=== PATIENT | female | born 1990 | race Caucasian/White ===

== ENCOUNTER 2017-02-19 01:10 | Emergency (ER) | payer OTHER, SELFPAY ==
--- NOTE | 2017-02-19 01:31 | ERPHSYRPT ---
- History of Present Illness Time Seen by Provider: 02/19/17 01:17 Historian: patient Exam Limitations: no limitations Patient Subjective Stated Complaint: ABD PAIN THAT STARTED EARLIER IN THE NIGHT WORSE FOR THE LAST APPROX 30 MIN. PT STS THAT PAIN IS CENTRAL/ LEFT SIDED LOWER ABD AND SUPRAPUBIC RADIATING INTO GROIN. RATES PAIN 10/10. DESCRIBES CONSTANT STABBING PAIN. PT STS NAUSEA, DENIES VOMITING. LAST BM JUST PLANNING RN - WAS NORMAL FOR HER. DENIES COMPLAINTS Triage Nursing Assessment: PT ALERT, ORIENTED, AMBULATORY TO TX ROOM, STEADY GAIT NOTED. SKIN P/W/D, RESPS NON-LABORED. PT HOLDING ABD. PT PROVIDED URINE SPECIMEN AT TRIAGE. Physician History: FOR THE PAST 17 HOURS PT HAS HAD CONSTANT STABBING LLQ ABDOMINAL PAIN WORSE IN THE PAST 30 MINUTES RADIATING INTO THE LEFT GROIN AND SUPRAPUBIC AREA WITH NAUSEA. LAST BM WAS TONIGHT & WNL. PT DENIES CHEST PAIN, SHORTNESS OF AIR, FEVER, BACK PAIN. LMP=02/03/17. Allergies/Adverse Reactions: meloxicam Allergy (Verified 02/19/17 01:21) sulfamethoxazole [From Bactrim] Allergy (Verified 02/19/17 01:21) Home Medications: Albuterol Sulfate [Proair Hfa] 2 puff IH DAILY PRN PRN 11/11/15 [History] Alprazolam [Xanax 0.5 mg] 0.5 mg PO TID PRN 08/10/16 [History] Sertraline HCl 50 mg [Zoloft 50 mg Tablet] 25 mg PO DAILY 08/10/16 [History] Ibuprofen 600 mg PO TID PRN 10/19/16 [History] Hx Tetanus, Diphtheria Vaccination/Date Given: No Hx Influenza Vaccination/Date Given: No Hx Pneumococcal Vaccination/Date Given: No Immunizations Up to Date: No - Review of Systems Constitutional: No Fever Respiratory: No Dyspnea Cardiac: No Chest Pain Abdominal/Gastrointestinal: Abdominal Pain, Nausea, No Vomiting, No Diarrhea Musculoskeletal: No Back Pain All Other Systems: Reviewed and Negative - Past Medical History Pertinent Past Medical History: Yes Neurological History: No Pertinent History ENT History: No Pertinent History Cardiac History: No Pertinent History Respiratory History: Asthma Endocrine Medical History: No Pertinent History Musculoskeletal History: Degenerative Disk Disease GI Medical History: No Pertinent History History: No Pertinent History Psycho-Social History: Anxiety, Depression Female Reproductive Disorders: No Pertinent History - Past Surgical History Past Surgical History: Yes Neuro Surgical History: No Pertinent History Cardiac: No Pertinent History Respiratory: No Pertinent History Gastrointestinal: Cholecystectomy Genitourinary: No Pertinent History Musculoskeletal: No Pertinent History Female Surgical History: Section Other Surgical History: CS x3 - Social History Smoking Status: Current every day smoker How long have you smoked: 10 Exposure to second hand smoke: No Drug Use: none Patient Lives Alone: No Significant Family History: no pertinent family hx - Female History Hx Last Menstrual Period: BEGINNING OF THE MONTH Hx Now: No - Nursing Vital Signs Nursing Vital Signs: Initial Vital Signs Temperature 98.2 F Temperature Source Oral Pulse Rate 77 Respiratory Rate 16 Blood Pressure [] 110/56 Pain Intensity 10 - Physical Exam General Appearance: alert Eye Exam: PERRL/EOMI Ears, Nose, Throat Exam: TMs normal, pharynx normal, moist mucous membranes Neck Exam: normal inspection Respiratory Exam: lungs clear Cardiovascular Exam: normal heart sounds Gastrointestinal/Abdomen Exam: soft, normal bowel sounds, tenderness (MILD LLQ/ SUPRAPUBIC TENDERNESS), No guarding Back Exam: normal range of motion Extremity Exam: normal inspection, No pedal edema Neurologic Exam: alert, cooperative Skin Exam: warm, dry SpO2 Interpretation: normal SpO2: 100 Oxygen Delivery: Room Air - Course Nursing assessment & vital signs reviewed: Yes - CT Exams Abdomen/Pelvis CT Interpretation: Tele-radiologist Report (4 X 5.5 CM CYST OF THE LEFT ADNEXA.) - Radiology Ultrasound Exam Pelvis Ultrasound: Other (TECH REPORT: LEFT OVARIAN CYST 4.7 CM X 3.3 CM X 3.8 CM; NO OVARIAN TORSION.) Ordered Tests: Active Orders 24 hr Category Date Time Status ABDOMEN AND PELVIS W/0 CONTRAS [CT] Stat Exams 02/19/17 01:57 Taken PELVIC [US] Stat Exams 02/19/17 03:22 Taken AMYLASE Stat Lab 02/19/17 02:08 Completed CBC W DIFF Stat Lab 02/19/17 02:08 Completed CMP Stat Lab 02/19/17 02:08 Completed HCG QUALITATIVE,SERUM Stat Lab 02/19/17 02:08 Completed LIPASE Stat Lab 02/19/17 02:08 Completed UA W/ MICROSCOPIC Stat Lab 02/19/17 01:30 Completed Medication Summary Discontinued Medications Generic Name Dose Route Start Last Admin Trade Name Glo PRN Reason Stop Dose Admin Hydromorphone HCl 1 mg 02/19/17 03:25 02/19/17 03:47 Hydromorphone 1 Mg/Ml Ampule IM 02/19/17 03:26 1 mg STAT ONE Administration Hydromorphone HCl Confirm 02/19/17 03:45 Hydromorphone 1 Mg/Ml Ampule Administered 02/19/17 03:46 Dose 1 mg .ROUTE .STK-MED ONE Promethazine HCl 25 mg 02/19/17 03:25 02/19/17 03:47 Phenergan 25 Mg Inj IM 02/19/17 03:26 25 mg STAT ONE Administration Promethazine HCl Confirm 02/19/17 03:45 Phenergan 25 Mg Inj Administered 02/19/17 03:46 Dose 25 mg .ROUTE .STK-MED ONE Lab/Rad Data: Laboratory Result Diagrams 02/19/17 02:08 02/19/17 02:08 Laboratory Results 02/19/17 02/19/17 02/19/17 Range/Units 02:08 02:08 02:08 WBC 11.7 H (4.0-10.5) K/mm3 RBC 3.70 L (4.1-5.4) M/mm3 Hgb 11.7 L (12.0-16.0) gm/dl Hct 34.3 L (35-47) % MCV 92.7 (78-100) fl MCH 31.6 (26-32) pg MCHC 34.1 (32-36) g/dl RDW 12.2 (11.5-14.0) % Plt Count 205 (150-450) K/mm3 MPV 10.8 H (6-9.5) fl Gran % 64.8 (36.0-66.0) % Lymphocytes % 21.4 L (24.0-44.0) % Monocytes % 7.8 (0.0-12.0) % Eosinophils % 5.7 H (0.00-5.0) % Basophils % 0.3 (0.0-0.4) % Basophils # 0.03 (0-0.4) Sodium 141 (136-145) mEq/L Potassium 3.7 (3.5-5.1) mEq/L Chloride 105 (98-107) mEq/L Carbon Dioxide 24.6 (21-32) mEq/L Anion Gap 14.9 (5-15) MEQ/L BUN 14 (9-20) mg/dL Creatinine 0.85 (0.55-1.30) mg/dl Estimated GFR > 60 ML/MIN Glucose 96 (70-110) MG/DL Calcium 8.4 L (8.5-10.1) mg/dL Total Bilirubin 0.2 (0.2-1.0) mg/dL AST 13 L (15-37) U/L ALT 17 (12-78) U/L Alkaline Phosphatase 70 (46-116) U/L Serum Total Protein 6.9 (6.4-8.2) gm/dL Albumin 3.3 L (3.4-5.0) g/dL Amylase 37 (25-115) U/L Lipase 103 (73-393) U/L Serum , Qual NEGATIVE (Negative) Ur Collection Type Urine Color (YELLOW) Urine Appearance (CLEAR) Urine pH (5-6) Ur Specific [place] (1.005-1.025) Urine Protein (Negative) Urine Glucose (UA) (NEGATIVE) mg/dL Urine Ketones (NEGATIVE) Urine Nitrite (NEGATIVE) Urine Bilirubin (NEGATIVE) Urine Urobilinogen (0-1) mg/dL Urine WBC (Auto) (NEGATIVE) Urine RBC (Auto) (0-5) Charles/ul Urine Microscopic RBC (0-2) /HPF Ur Epithelial Cells (FEW) /HPF Urine Bacteria (NEGATIVE) /HPF Specimen Received 02/19/17 Range/Units 01:30 WBC (4.0-10.5) K/mm3 RBC (4.1-5.4) M/mm3 Hgb (12.0-16.0) gm/dl Hct (35-47) % MCV (78-100) fl MCH (26-32) pg MCHC (32-36) g/dl RDW (11.5-14.0) % Plt Count (150-450) K/mm3 MPV (6-9.5) fl Gran % (36.0-66.0) % Lymphocytes % (24.0-44.0) % Monocytes % (0.0-12.0) % Eosinophils % (0.00-5.0) % Basophils % (0.0-0.4) % Basophils # (0-0.4) Sodium (136-145) mEq/L Potassium (3.5-5.1) mEq/L Chloride (98-107) mEq/L Carbon Dioxide (21-32) mEq/L Anion Gap (5-15) MEQ/L BUN (9-20) mg/dL Creatinine (0.55-1.30) mg/dl Estimated GFR ML/MIN Glucose (70-110) MG/DL Calcium (8.5-10.1) mg/dL Total Bilirubin (0.2-1.0) mg/dL AST (15-37) U/L ALT (12-78) U/L Alkaline Phosphatase (46-116) U/L Serum Total Protein (6.4-8.2) gm/dL Albumin (3.4-5.0) g/dL Amylase (25-115) U/L Lipase (73-393) U/L Serum , Qual (Negative) Ur Collection Type CLEAN CATCH Urine Color YELLOW (YELLOW) Urine Appearance CLEAR (CLEAR) Urine pH 5.5 (5-6) Ur Specific [place] 1.020 (1.005-1.025) Urine Protein NEGATIVE (Negative) Urine Glucose (UA) NEGATIVE (NEGATIVE) mg/dL Urine Ketones NEGATIVE (NEGATIVE) Urine Nitrite NEGATIVE (NEGATIVE) Urine Bilirubin NEGATIVE (NEGATIVE) Urine Urobilinogen 0.2 (0-1) mg/dL Urine WBC (Auto) NEGATIVE (NEGATIVE) Urine RBC (Auto) LARGE (0-5) Charles/ul Urine Microscopic RBC 15-25 (0-2) /HPF Ur Epithelial Cells MODERATE (FEW) /HPF Urine Bacteria FEW (NEGATIVE) /HPF Specimen Received 02/19/17:0130 - Departure Time of Disposition: 04:57 Departure Disposition: Home Clinical Impression: ABDOMINAL PAIN, LEFT OVARIAN CYST Condition: Fair Critical Care Time: No Referrals: AUDELIA MARCELO [Primary Care Provider] - Instructions: Ovarian Cyst Additional Instructions: FOLLOW UP WITH PRIVATE DOCTOR TOMORROW. Prescriptions: Promethazine HCl 25 mg [Phenergan 25 mg] 25 mg PO Q4H PRN PRN #14 tablet PRN Reason: Nausea/Vomiting
[2017-02-19 01:43] LABS: Bacteria FEW /HPF (NEGATIVE); COMPLETE URINE MICROSCOPIC? YES; Collection Type CLEAN CATCH; Epithelial Cells MODERATE /HPF (FEW); Ph 5.5 (5-6)
[2017-02-19 02:13] LABS: BASOPHIL % 0.3 % (0.0-0.4); Eosinophil % 5.7 % (0.00-5.0); Granulocytes % 64.8 % (36.0-66.0); Lymphocytes % 21.4 % (24.0-44.0); Mean Cell Volume 92.7 fl (78-100); Mean Corpuscular Hemoglobin 31.6 pg (26-32); Mean Platelet Volume 10.8 fl (6-9.5); Monocytes % 7.8 % (0.0-12.0); Platelet Count 205 K/mm3 (150-450); Red Cell Distribution Width 12.2 % (11.5-14.0); White Blood Count 11.7 K/mm3 (4.0-10.5)
[2017-02-19 02:36] LABS: ALBUMIN 3.3 g/dL (3.4-5.0); ALKALINE PHOSPHATASE 70 U/L (46-116); ANION GAP 14.9 MEQ/L (5-15); BILIRUBIN,TOTAL 0.2 mg/dL (0.2-1.0); BLOOD UREA NITROGEN 14 mg/dL (9-20); CHLORIDE 105 mEq/L (98-107); Carbon Dioxide 24.6 mEq/L (21-32); Glucose 96 MG/DL (70-110); LIPASE 103 U/L (73-393); Potassium 3.7 mEq/L (3.5-5.1); SGOT/AST 13 U/L (15-37); SGPT/ALT 17 U/L (12-78); SODIUM 141 mEq/L (136-145); Total Protein 6.9 gm/dL (6.4-8.2)
[2017-02-19 03:25] VITALS: O2SAT 100
[2017-02-19] MEDS ORDERED: Hydromorphone 1 mg/ml Ampule IM ONE (03:25)
[2017-02-19] MEDS ORDERED: Phenergan 25 MG INJ IM ONE (03:25)
[2017-02-19] MEDS ORDERED: Phenergan 25 MG INJ ONE (03:45)
[2017-02-19] MEDS ORDERED: Hydromorphone 1 mg/ml Ampule ONE (03:45)
[2017-02-19 05:08] VITALS: BP 104/70; PULSE 72
--- NOTE | 2017-02-19 17:19 | XRAY ---
Exam: CT of the abdomen and pelvis without IV contrast from 02/19/2017. CTDI: 23.68 Comparison: CT of the abdomen and pelvis with IV contrast from 08/10/2016. Indication: Left lower quadrant abdominal pain 7 hours, associated nausea, history of prior cholecystectomy and 3 prior sections. Technique: Non-IV contrast axial images were obtained through the abdomen and pelvis. Reconstructed coronal and sagittal images were created and reviewed. Findings: The posterior lung bases appear clear. Moderate food/secretions is seen within the stomach lumen. Surgical clips consistent with prior cholecystectomy are seen within the right upper quadrant. The liver, spleen, pancreas, and adrenal glands appear unremarkable. The kidneys are of average size and shape. There are some subtle small round high attenuation lesions within the upper to mid aspect of the left kidney, the largest measuring about 7.5 mm in diameter on axial image #25. These likely represent small hyperdense cysts. Further evaluation with a renal ultrasound may be helpful, although the patient's body habitus could limit evaluation in this regard. Comparison with the prior post IV contrast study from 08/10/2016 is somewhat difficult. No renal calcifications or hydronephrosis is seen. The abdominal aorta is of normal diameter. No abnormal retroperitoneal lymphadenopathy is seen. Abundant stool is seen within the cecum, ascending colon, transverse colon, and a portion of the descending colon. No abnormal bowel distention is seen. There is no free intraperitoneal air. The appendix is identified within the right lower quadrant and reveals no inflammatory findings to suggest appendicitis. There is a 5.7 cm by 4.1 cm heterogeneous left adnexal mass density measuring an average of +26.5 Hounsfield units. The previous study had revealed a 2 cm in diameter cyst at this level. I would recommend further evaluation with a transabdominal and transvaginal pelvic ultrasound. The uterus is anteflexed and appears unremarkable. The right ovary appears normal. No other pelvic mass, abnormal pelvic lymphadenopathy, or free intraperitoneal fluid is seen. The visualized bones reveal no acute fracture or aggressive bone lesion. A number of small Schmorl's nodes are seen within the central vertebral endplates of the lower thoracic and upper lumbar spine representing no change. Impression: 1. Axial image #67 reveals a 5.7 cm x 4.1 cm oval-shaped mass within the anterior aspect of the left pelvic adnexa. This represents a new developing mass within the left ovary. Further evaluation with a pelvic ultrasound is recommended as outlined above.. 2. The remainder of the pelvis appears unremarkable. 3. Several small hyperdense round nodular lesions are seen within the upper pole to mid pole of the left kidney which likely represent small hyperdense cysts. Consider further evaluation with a renal ultrasound. 4. No other acute process is seen within the abdomen or pelvis. 5. Normal appendix. 6. Status post cholecystectomy.
--- NOTE | 2017-02-19 21:17 | XRAY ---
Exam: Transvaginal pelvic ultrasound from 02/19/2017. Comparison: CT of the abdomen and pelvis without IV contrast from 02/19/2017. Indication: Left lower quadrant abdominal pain. Findings: An anteflexed uterus is seen measuring 7.7 cm in length, 4.1 cm in AP depth, and 5.2 cm in width. The uterine myometrium is homogeneous without evidence of masses. AP dimension of the endometrium measured 9 - 10 mm. One or 2 tiny nabothian cysts are seen within the cervical canal. The right ovary measured 3.1 cm x 2.2 cm x 2.4 cm. Normal color flow and Doppler signal is seen within the right ovary. The left ovary measures 4.8 cm x 4.9 cm x 4.55 cm and is remarkable for an oval-shaped complex heterogeneous mass with thickened septations measuring 4.7 cm x 3.3 cm x 3.8 cm. Normal color flow and Doppler signal is seen within the left ovary. The small amount of nonspecific free fluid is seen within the cul-de-sac. Impression: 1. Complex cystic mass with thickened septations is seen within the left ovary measuring 4.7 cm x 3.3 cm x 3.8 cm. Correlation with direct visualization may be helpful. A small amount of free fluid is seen within the cul-de-sac as well. 2. Normal anteflexed uterus. 3. Unremarkable right ovary.
== END 2017-02-19 05:12 | disposition home or self-care (01) ==
LOC: ED 01:10
DX: R10.32 Left lower quadrant pain (principal); N83.202 Unspecified ovarian cyst, left side; R11.0 Nausea
CPT/HCPCS: 36415; 74176; 76856; 80053; 81000; 82150; 83690; 84703; 85025; 96372; 99284; J1170; J2550

== ENCOUNTER 2017-03-09 02:48 | Emergency (ER) | payer OTHER, SELFPAY ==
--- NOTE | 2017-03-09 02:58 | ERPHSYRPT ---
- History of Present Illness Time Seen by Provider: 03/09/17 02:58 Historian: patient Exam Limitations: clinical condition Physician History: PATIENT WITH HISTORY OF LEFT OVARIAN CYST COMPLAINS OF LEFT LOWER ABDOMINAL PAIN X 2 DAYS. DENIES VAGINAL BLEEDING, FEVER OR URINARY SYMPTOMS. HAS NAUSEA ON OCCASION. Timing/Duration: yesterday Activities at Onset: none Quality: sharpness Abdominal Pain Onset Location: RLQ Pain Radiation: no radiation Severity of Pain-Max: moderate Severity of Pain-Current: moderate Modifying Factors: Improves With: movement Associated Symptoms: nausea Previous symptoms: same symptoms as today Allergies/Adverse Reactions: meloxicam Allergy (Verified 03/09/17 03:00) sulfamethoxazole [From Bactrim] Allergy (Verified 03/09/17 03:00) Home Medications: Albuterol Sulfate [Proair Hfa] 2 puff IH DAILY PRN PRN 11/11/15 [History] Alprazolam [Xanax 0.5 mg] 0.5 mg PO TID PRN 08/10/16 [History] Sertraline HCl 50 mg [Zoloft 50 mg Tablet] 100 mg PO DAILY 08/10/16 [History ] Ibuprofen 600 mg PO TID PRN 10/19/16 [History] Hx Tetanus, Diphtheria Vaccination/Date Given: No Hx Influenza Vaccination/Date Given: No Hx Pneumococcal Vaccination/Date Given: No - Review of Systems Constitutional: No Fever, No Chills Eyes: No Symptoms Ears, Nose, & Throat: No Symptoms Respiratory: No Symptoms, No Cough, No Dyspnea Cardiac: No Symptoms, No Chest Pain, No Edema, No Syncope Abdominal/Gastrointestinal: Abdominal Pain, No Nausea, No Vomiting, No Diarrhea Genitourinary Symptoms: No Dysuria Musculoskeletal: No Symptoms, No Back Pain, No Neck Pain Skin: No Symptoms, No Rash Neurological: No Dizziness, No Focal Weakness, No Sensory Changes Psychological: No Symptoms Endocrine: No Symptoms All Other Systems: Reviewed and Negative - Past Medical History Pertinent Past Medical History: Yes Neurological History: No Pertinent History ENT History: No Pertinent History Cardiac History: No Pertinent History Respiratory History: Asthma Endocrine Medical History: No Pertinent History Musculoskeletal History: Degenerative Disk Disease GI Medical History: No Pertinent History History: No Pertinent History Psycho-Social History: Anxiety, Depression Female Reproductive Disorders: No Pertinent History - Past Surgical History Past Surgical History: Yes Neuro Surgical History: No Pertinent History Cardiac: No Pertinent History Respiratory: No Pertinent History Gastrointestinal: Cholecystectomy Genitourinary: No Pertinent History Musculoskeletal: No Pertinent History Female Surgical History: Section Other Surgical History: CS x3 - Social History Smoking Status: Current every day smoker How long have you smoked: 10 Exposure to second hand smoke: No Drug Use: none Patient Lives Alone: No Significant Family History: no pertinent family hx - Female History Hx Now: No - Nursing Vital Signs Nursing Vital Signs: Initial Vital Signs Temperature 98.1 F Temperature Source Oral Pulse Rate 84 Respiratory Rate 18 Blood Pressure [] 118/59 Pain Intensity 0 - Physical Exam General Appearance: no apparent distress, alert Eye Exam: PERRL/EOMI, eyes nml inspection Ears, Nose, Throat Exam: normal ENT inspection, pharynx normal, moist mucous membranes Neck Exam: normal inspection, non-tender, supple, full range of motion Respiratory Exam: normal breath sounds, lungs clear, No respiratory distress Cardiovascular Exam: regular rate/rhythm, normal heart sounds Gastrointestinal/Abdomen Exam: soft, normal bowel sounds, tenderness (LEFT LOWER QUAD TENDERNESS, NO GUARDING OR REBOUND TENDERNESS), No mass Pelvic Exam: normal external exam, other (THERE IS NO BLOOD IN VAGINAL VAULT, LEFT ADNEXAL TENDERNESS) Back Exam: normal inspection, normal range of motion, No CVA tenderness, No vertebral tenderness Extremity Exam: normal inspection, normal range of motion, pelvis stable Neurologic Exam: alert, oriented x 3, cooperative, normal mood/affect, nml cerebellar function, sensation nml, No motor deficits Skin Exam: normal color, warm, dry SpO2 Interpretation: normal SpO2: 96 Oxygen Delivery: Room Air - Radiology Ultrasound Exam Other Ultrasound: discussed w/radiologist, Other (THE TRANSVAGINAL ULTRASOUND SHOWED NO EVIDENCE OF OVARIAN CYST OF FLUID IN THE CUL-DE-SAC) Ordered Tests: Active Orders 24 hr Category Date Time Status Oxygen-ED Only NASAL CANNULA 2 lpm Care 03/09/17 04:31 Active Pulse Oximetry (ED) STAT Care 03/09/17 04:31 Active PELVIS TRANS VAGINAL [US] Stat Exams 03/09/17 03:12 Taken CBC W DIFF Stat Lab 03/09/17 03:20 Completed HCG,QUALITATIVE URINE Stat Lab 03/09/17 03:15 Completed UA W/ MICROSCOPIC Stat Lab 03/09/17 03:15 Completed Urine Triage Profile Stat Lab 03/09/17 03:15 Completed Wet Prep Stat Lab 03/09/17 03:35 Completed Medication Summary Generic Name Dose Route Start Last Admin Trade Name Glo PRN Reason Stop Dose Admin Sodium Chloride 1,000 mls @ 200 mls/hr 03/09/17 03:15 03/09/17 03:51 Sodium Chloride 0.9% 1000 Ml IV 04/08/17 03:14 200 mls/hr .Q5H LIZZIE Administration Discontinued Medications Generic Name Dose Route Start Last Admin Trade Name Glo PRN Reason Stop Dose Admin Diphenhydramine HCl 25 mg 03/09/17 03:12 03/09/17 03:50 Benadryl 50 Mg/Ml IV 03/09/17 03:13 25 mg STAT ONE Administration Diphenhydramine HCl Confirm 03/09/17 03:38 Benadryl 50 Mg/Ml Administered 03/09/17 03:39 Dose 50 mg .ROUTE .STK-MED ONE Hydromorphone HCl 1 mg 03/09/17 03:12 03/09/17 03:50 Hydromorphone 1 Mg/Ml Ampule IV 03/09/17 03:13 1 mg STAT ONE Administration Hydromorphone HCl Confirm 03/09/17 03:38 Hydromorphone 1 Mg/Ml Ampule Administered 03/09/17 03:39 Dose 1 mg .ROUTE .STK-MED ONE Ondansetron HCl 4 mg 03/09/17 03:12 03/09/17 03:50 Zofran 4 Mg/2 Ml Vial IV 03/09/17 03:13 4 mg STAT ONE Administration Ondansetron HCl Confirm 03/09/17 03:38 Zofran 4 Mg/2 Ml Vial Administered 03/09/17 03:39 Dose 4 mg .ROUTE .STK-MED ONE Lab/Rad Data: Laboratory Result Diagrams 03/09/17 03:20 Laboratory Results 03/09/17 03/09/17 03/09/17 Range/Units 03:35 03:20 03:15 WBC 7.5 (4.0-10.5) K/mm3 RBC 3.97 L (4.1-5.4) M/mm3 Hgb 12.6 (12.0-16.0) gm/dl Hct 36.9 (35-47) % MCV 92.9 (78-100) fl MCH 31.7 (26-32) pg MCHC 34.1 (32-36) g/dl RDW 12.4 (11.5-14.0) % Plt Count 281 (150-450) K/mm3 MPV 10.5 H (6-9.5) fl Gran % 50.7 (36.0-66.0) % Lymphocytes % 33.3 (24.0-44.0) % Monocytes % 8.1 (0.0-12.0) % Eosinophils % 7.6 H (0.00-5.0) % Basophils % 0.3 (0.0-0.4) % Basophils # 0.02 (0-0.4) Ur Collection Type Urine Color (YELLOW) Urine Appearance (CLEAR) Urine pH (5-6) Ur Specific [place] (1.005-1.025) Urine Protein (Negative) Urine Glucose (UA) (NEGATIVE) mg/dL Urine Ketones (NEGATIVE) Urine Nitrite (NEGATIVE) Urine Bilirubin (NEGATIVE) Urine Urobilinogen (0-1) mg/dL Urine WBC (Auto) (NEGATIVE) Urine RBC (Auto) (0-5) Charles/ul Urine Microscopic RBC (0-2) /HPF Ur Epithelial Cells (FEW) /HPF Urine Bacteria (NEGATIVE) /HPF Urine HCG, Qual NEGATIVE (Negative) WBC (Wet Prep) Few RBC (Wet Prep) Rare Epi Cells (Wet Prep) Few Bacteria (Wet Prep) Rare Clue Cells (Wet Prep) None Seen Trichomonas (Wet Prep) None Seen Budding Yeast (Wet Prp) None Seen Urine Opiates Level (NEGATIVE) Ur Methadone (NEGATIVE) Urine Barbiturates (NEGATIVE) Ur Phencyclidine (PCP) (NEGATIVE) Urine Amphetamine (NEGATIVE) U Benzodiazepine Level (NEGATIVE) Urine Cocaine (NEGATIVE) Urine Marijuana (THC) (NEGATIVE) Specimen Received 03/09/17 03/09/17 Range/Units 03:15 03:15 WBC (4.0-10.5) K/mm3 RBC (4.1-5.4) M/mm3 Hgb (12.0-16.0) gm/dl Hct (35-47) % MCV (78-100) fl MCH (26-32) pg MCHC (32-36) g/dl RDW (11.5-14.0) % Plt Count (150-450) K/mm3 MPV (6-9.5) fl Gran % (36.0-66.0) % Lymphocytes % (24.0-44.0) % Monocytes % (0.0-12.0) % Eosinophils % (0.00-5.0) % Basophils % (0.0-0.4) % Basophils # (0-0.4) Ur Collection Type CLEAN CATCH Urine Color YELLOW (YELLOW) Urine Appearance CLEAR (CLEAR) Urine pH 7.0 (5-6) Ur Specific [place] 1.015 (1.005-1.025) Urine Protein NEGATIVE (Negative) Urine Glucose (UA) NEGATIVE (NEGATIVE) mg/dL Urine Ketones NEGATIVE (NEGATIVE) Urine Nitrite NEGATIVE (NEGATIVE) Urine Bilirubin NEGATIVE (NEGATIVE) Urine Urobilinogen 0.2 (0-1) mg/dL Urine WBC (Auto) NEGATIVE (NEGATIVE) Urine RBC (Auto) MODERATE (0-5) Charles/ul Urine Microscopic RBC 5-10 (0-2) /HPF Ur Epithelial Cells FEW (FEW) /HPF Urine Bacteria RARE (NEGATIVE) /HPF Urine HCG, Qual (Negative) WBC (Wet Prep) RBC (Wet Prep) Epi Cells (Wet Prep) Bacteria (Wet Prep) Clue Cells (Wet Prep) Trichomonas (Wet Prep) Budding Yeast (Wet Prp) Urine Opiates Level NEG. (NEGATIVE) Ur Methadone NEG. (NEGATIVE) Urine Barbiturates NEG. (NEGATIVE) Ur Phencyclidine (PCP) NEG. (NEGATIVE) Urine Amphetamine NEG. (NEGATIVE) U Benzodiazepine Level NEG. (NEGATIVE) Urine Cocaine NEG. (NEGATIVE) Urine Marijuana (THC) NEG. (NEGATIVE) Specimen Received 03/09/17:0315 - Progress Progress Note: 03/09/17 03:38 PATIENT GIVEN IV NORMAL SALINE 100ML/HR, ZOFRAN 4MG, BENADRYL 25MG, DILAUDID 1MG IV 03/09/17 03:52, THE PREVIOUS LEFT OVARIAN CYST 4.7CM X 5CM ON US 02/23/2017 COMPLETELY RESOLVED Counseled pt/family regarding: lab results, diagnosis, need for follow-up - Departure Time of Disposition: 04:50 Departure Disposition: Home Clinical Impression: PELVIC PAIN Condition: Stable Critical Care Time: No Referrals: DAVIAN,AUDELIA F [Primary Care Provider] - Instructions: Pelvic Pain Additional Instructions: CONSULT YOUR FAMILY PHYSICIAN AND FOREMAN OR SUPERVISOR AND OPERATOR FOR EVALUATION AND TREATMENT. Prescriptions: Ketorolac Tromethamine [Toradol] 10 mg PO Q6HPRN PRN #0 tablet PRN Reason: Pain Ondansetron [Zofran Odt] 4 mg PO Q6HPRN PRN #6 tab.rapdis PRN Reason: Nausea
[2017-03-09] MEDS ORDERED: BENADRYL 50 MG/ML IV ONE (03:12)
[2017-03-09] MEDS ORDERED: Hydromorphone 1 mg/ml Ampule IV ONE (03:12)
[2017-03-09] MEDS ORDERED: Zofran 4 MG/2 ML VIAL IV ONE (03:12)
[2017-03-09] MEDS ORDERED: Sodium Chloride 0.9% 1000 ML 1,000 ML IV SCH (03:15)
[2017-03-09 03:28] LABS: BASOPHIL % 0.3 % (0.0-0.4); Eosinophil % 7.6 % (0.00-5.0); Granulocytes % 50.7 % (36.0-66.0); Lymphocytes % 33.3 % (24.0-44.0); Mean Cell Volume 92.9 fl (78-100); Mean Corpuscular Hemoglobin 31.7 pg (26-32); Mean Platelet Volume 10.5 fl (6-9.5); Monocytes % 8.1 % (0.0-12.0); Platelet Count 281 K/mm3 (150-450); Red Blood Count 3.97 M/mm3 (4.1-5.4); Red Cell Distribution Width 12.4 % (11.5-14.0); White Blood Count 7.5 K/mm3 (4.0-10.5)
[2017-03-09 03:29] LABS: Collection Type CLEAN CATCH
[2017-03-09 03:30] LABS: Bacteria RARE /HPF (NEGATIVE); COMPLETE URINE MICROSCOPIC? YES; Epithelial Cells FEW /HPF (FEW)
[2017-03-09] MEDS ORDERED: BENADRYL 50 MG/ML ONE (03:38)
[2017-03-09] MEDS ORDERED: Zofran 4 MG/2 ML VIAL ONE (03:38)
[2017-03-09] MEDS ORDERED: Hydromorphone 1 mg/ml Ampule ONE (03:38)
[2017-03-09] MEDS ORDERED: Sodium Chloride 0.9% 1000 ML 1,000 ML ONE (03:38)
[2017-03-09 03:44] LABS: Bacteria Rare; Clue Cells None Seen; Trichomonas None Seen; Yeast None Seen
[2017-03-09 04:41] VITALS: O2SAT 96
[2017-03-09 05:01] VITALS: BP 115/76; PULSE 82
[2017-03-09 05:13] LABS: CHLAMYDIA DNA NEGATIVE
--- NOTE | 2017-03-09 08:49 | XRAY ---
Indication: Pain. Two-dimensional transvaginal pelvic sonogram was performed. Comparison: February 19, 2017. Uterus is again anteverted today measuring 8.7 x 3.0 x 5.1 cm. Stable tiny nabothian cysts in the lower uterine segment. No new solid/cystic uterine mass. Endometrial stripe measures 6.4 mm. No endometrial cavity mass or fluid collection. Right ovary measures 3.2 x 2.0 x 3.3 cm and the left measures 3.1 x 2.1 x 3.7 cm. Normal perfusion and follicular cysts bilaterally. Previous complex left ovary cystic mass not seen presumed resolved. No new adnexal mass or free fluid. Impression: Previous left ovary cystic mass has resolved. Stable nabothian cysts. Remaining pelvic sonogram is negative. Comment: Preliminary report was given.
== END 2017-03-09 05:03 | disposition home or self-care (01) ==
LOC: ED 02:48
DX: R10.2 Pelvic and perineal pain (principal); R10.32 Left lower quadrant pain; R11.0 Nausea; R10.31 Right lower quadrant pain
CPT/HCPCS: 36000; 36415; 76830; 80307; 81000; 84703; 85025; 87210; 87490; 87590; 96360; 96361; 96374; 96375; 99284; J1170; J1200; J2405

== ENCOUNTER 2017-03-25 01:13 | Emergency (ER) | payer OTHER, SELFPAY ==
[2017-03-25 01:22] VITALS: O2SAT 98
--- NOTE | 2017-03-25 01:29 | ERPHSYRPT ---
- History of Present Illness Time Seen by Provider: 03/25/17 01:24 Source: patient, family Exam Limitations: no limitations Patient Subjective Stated Complaint: has had sore throat and then was hourse for past 4 days Triage Nursing Assessment: patient became horse with sore throat 4 days ago, throat is red, pulses equal bilateral radius, lung sounds clear, pupils perrla3 , bowel sounds x4, no other problems reported . no nausea no vomitting Physician History: pt had same symptoms a year or more ago and responded to amoxcil, is swallowing OK , no vomiting, not short of breath but does have treated asthma; discussed risk/benefits of testing/Tx and pt prefers to go ahead with tx as usually fails observation in the past each time; Severity: moderate ENT Location: throat Prearrival Treatment: over the counter meds Associated Symptoms: swollen glands, sore throat Allergies/Adverse Reactions: meloxicam Allergy (Verified 03/09/17 03:00) sulfamethoxazole [From Bactrim] Allergy (Verified 03/09/17 03:00) Home Medications: Albuterol Sulfate [Proair Hfa] 2 puff IH DAILY PRN PRN 11/11/15 [History] Alprazolam [Xanax 0.5 mg] 0.5 mg PO TID PRN 08/10/16 [History] Sertraline HCl 50 mg [Zoloft 50 mg Tablet] 100 mg PO DAILY 08/10/16 [History ] Ibuprofen 600 mg PO TID PRN 10/19/16 [History] Hx Tetanus, Diphtheria Vaccination/Date Given: No Hx Influenza Vaccination/Date Given: No Hx Pneumococcal Vaccination/Date Given: No Immunizations Up to Date: No - Review of Systems Constitutional: No Fever, No Chills Eyes: No Symptoms Ears, Nose, & Throat: No Symptoms, Other (hoarse but swallowing OK) Respiratory: No Cough, No Dyspnea Cardiac: No Chest Pain, No Edema, No Syncope Abdominal/Gastrointestinal: No Abdominal Pain, No Nausea, No Vomiting, No Diarrhea Genitourinary Symptoms: No Dysuria Musculoskeletal: No Back Pain, No Neck Pain Skin: No Rash Neurological: No Dizziness, No Focal Weakness, No Sensory Changes Psychological: No Symptoms Endocrine: No Symptoms All Other Systems: Reviewed and Negative - Past Medical History Pertinent Past Medical History: Yes Neurological History: No Pertinent History ENT History: No Pertinent History Cardiac History: No Pertinent History Respiratory History: Asthma Endocrine Medical History: No Pertinent History Musculoskeletal History: Degenerative Disk Disease GI Medical History: No Pertinent History History: No Pertinent History Psycho-Social History: Anxiety, Depression Female Reproductive Disorders: No Pertinent History - Past Surgical History Past Surgical History: Yes Neuro Surgical History: No Pertinent History Cardiac: No Pertinent History Respiratory: No Pertinent History Gastrointestinal: Cholecystectomy Genitourinary: No Pertinent History Musculoskeletal: No Pertinent History Female Surgical History: Section Other Surgical History: CS x3 - Social History Smoking Status: Current every day smoker How long have you smoked: 10 Exposure to second hand smoke: No Drug Use: none Patient Lives Alone: No Significant Family History: no pertinent family hx - Female History Hx Now: No - Physical Exam General Appearance: no apparent distress, alert Eye Exam: bilateral eye: PERRL, EOMI Ear Exam: bilateral ear: auricle normal, canal normal, TM normal Nasal Exam: normal inspection Throat Exam: moist mucus membranes, voice changes, No dental tenderness, No excessive drooling, No tonsillar exudate Neck Exam: non-tender, supple, trachea midline, lymphadenopathy (R), lymphadenopathy (L) Cardiovascular/Respiratory Exam: normal breath sounds, regular rate/rhythm, no respiratory distress Abdominal Exam: non-tender, soft Neurologic Exam: alert, oriented x 3, cooperative, normal mood/affect, sensation nml, No motor deficits Skin Exam: normal color, warm, dry SpO2 Interpretation: normal SpO2: 98 Oxygen Delivery: Room Air - Course Nursing assessment & vital signs reviewed: Yes - Progress Progress: improved, re-examined Progress Note: 03/25/17 01:29 discussed workup vs tx and pt wishes to prceed without additional w/u at this time; Counseled pt/family regarding: diagnosis, need for follow-up - Departure Time of Disposition: 01:30 Departure Disposition: Home Clinical Impression: strepthroat Condition: Good Critical Care Time: No Instructions: Strep Throat, Viral Pharyngitis, Laryngitis Additional Instructions: followup with your dr if not resolved by treatment; return meantime if not improving , trouble swallowing or other concerns; Prescriptions: Amoxicillin [AMOXIL 250 MG CAPSULE] 500 mg PO TID #30 Methylprednisolone Packet [Medrol Dosepack] 4 mg PO UD #30 packet
[2017-03-25] MEDS ORDERED: AMOXIL 500 MG PO ONE (01:37)
[2017-03-25] MEDS ORDERED: AMOXIL 500 MG ONE (01:42)
[2017-03-25 01:46] VITALS: BP 115/68; PULSE 78
== END 2017-03-25 01:54 | disposition home or self-care (01) ==
LOC: ED 01:13
DX: J02.0 Streptococcal pharyngitis (principal)
CPT/HCPCS: 99283; A9270-GY

== ENCOUNTER 2017-06-16 21:40 | Emergency (ER) | payer OTHER, SELFPAY ==
[2017-06-16] MEDS ORDERED: MORPHINE SULFATE 2 MG INJ IV ONE (21:59)
[2017-06-16] MEDS ORDERED: Sodium Chloride 0.9% 1000 ML 1,000 ML IV STA (21:59)
[2017-06-16] MEDS ORDERED: Sodium Chloride 0.9% 1000 ML 1,000 ML ONE (22:07)
[2017-06-16] MEDS ORDERED: MORPHINE SULFATE 2 MG INJ ONE (22:07)
--- NOTE | 2017-06-16 22:08 | ERPHSYRPT ---
- History of Present Illness Time Seen by Provider: 06/16/17 22:06 Historian: patient Exam Limitations: no limitations Patient Subjective Stated Complaint: pt c/o midsternal chest pain for approx 3- 4 hrs. states she has also been having lower back pain. states pain increases with cough or deep breath. Triage Nursing Assessment: pt alert and oriented answers questions appopr. pt ambulatory with steady gait noted. respirations nolabored with lungs cta. heart rate 80 sinus rhythm on monitor. Physician History: pt c/o midsternal chest pain for approx 3-4 hrs. states she has also been having lower back pain. states pain increases with cough or deep breath. Timing/Duration: today Activities at Onset: none Quality: throbbing Location: back Chest Pain Radiation: no radiation Severity of Pain-Max: mild Severity of Pain-Current: mild Modifying Factors: Improves With: nothing Associated Symptoms: denies symptoms Prior Chest Pain/Cardiac Workup: no prior chest pain Aspirin Treatment Today: no aspirin today Allergies/Adverse Reactions: meloxicam Allergy (Verified 06/16/17 22:06) sulfamethoxazole [From Bactrim] Allergy (Verified 06/16/17 22:06) Home Medications: Albuterol Sulfate [Proair Hfa] 2 puff IH DAILY PRN PRN 11/11/15 [History] Alprazolam [Xanax 0.5 mg] 1 mg PO TID PRN PRN 08/10/16 [History] Sertraline HCl 50 mg [Zoloft 50 mg Tablet] 100 mg PO DAILY 08/10/16 [History ] Ibuprofen 600 mg PO TID PRN 10/19/16 [History] Cyclobenzaprine HCl [Flexeril] 10 mg PO Q8HPRN PRN 06/16/17 [History] Fluticasone/Vilanterol [Breo Ellipta 100-25 Mcg INH] 1 each IH DAILY 06/16/17 [ History] Loratadine 10 mg [Claritin 10 mg] 10 mg PO DAILY 06/16/17 [History] Hx Tetanus, Diphtheria Vaccination/Date Given: No Hx Influenza Vaccination/Date Given: No Hx Pneumococcal Vaccination/Date Given: No Immunizations Up to Date: No - Review of Systems Constitutional: No Fever, No Chills Eyes: No Symptoms Ears, Nose, & Throat: No Symptoms Respiratory: No Cough, No Dyspnea Cardiac: Chest Pain, No Edema, No Syncope Abdominal/Gastrointestinal: No Abdominal Pain, No Nausea, No Vomiting, No Diarrhea Genitourinary Symptoms: No Dysuria Musculoskeletal: No Back Pain, No Neck Pain Skin: No Rash Neurological: No Dizziness, No Focal Weakness, No Sensory Changes Psychological: No Symptoms Endocrine: No Symptoms All Other Systems: Reviewed and Negative - Past Medical History Pertinent Past Medical History: Yes Neurological History: No Pertinent History ENT History: No Pertinent History Cardiac History: No Pertinent History Respiratory History: Asthma Endocrine Medical History: No Pertinent History Musculoskeletal History: Degenerative Disk Disease GI Medical History: No Pertinent History History: No Pertinent History Psycho-Social History: Anxiety, Depression Female Reproductive Disorders: No Pertinent History - Past Surgical History Past Surgical History: Yes Neuro Surgical History: No Pertinent History Cardiac: No Pertinent History Respiratory: No Pertinent History Gastrointestinal: Cholecystectomy Genitourinary: No Pertinent History Musculoskeletal: No Pertinent History Female Surgical History: Section Other Surgical History: CS x3 - Social History Smoking Status: Current every day smoker How long have you smoked: 10 Exposure to second hand smoke: No Drug Use: none Patient Lives Alone: No Significant Family History: no pertinent family hx - Female History Hx Last Menstrual Period: current Hx Now: No - Nursing Vital Signs Nursing Vital Signs: Initial Vital Signs Temperature 98.7 F 06/16/17 21:48 Pulse Rate 80 06/16/17 21:48 Respiratory Rate 18 06/16/17 21:48 Blood Pressure 132/93 06/16/17 21:48 O2 Sat by Pulse Oximetry 100 06/16/17 21:48 Pain Scale Pain Intensity 10 - Physical Exam General Appearance: no apparent distress, alert Eye Exam: PERRL/EOMI, eyes nml inspection Ears, Nose, Throat Exam: normal ENT inspection, moist mucous membranes Neck Exam: normal inspection, non-tender, supple, full range of motion Respiratory Exam: normal breath sounds, lungs clear, No respiratory distress Cardiovascular Exam: regular rate/rhythm, normal heart sounds Gastrointestinal/Abdomen Exam: soft, No tenderness, No mass Back Exam: normal inspection, No CVA tenderness, No vertebral tenderness Extremity Exam: normal inspection, normal range of motion Neurologic Exam: alert, oriented x 3, cooperative, normal mood/affect, sensation nml, No motor deficits Skin Exam: normal color, warm, dry SpO2: 100 Oxygen Delivery: Room Air - Course Nursing assessment & vital signs reviewed: Yes EKG Interpreted by Me: RATE - Radiology Exams Chest X-ray Interpretation: Reviewed by me (no acute changes) Ordered Tests: Active Orders 24 hr Category Date Time Status EKG-ER Only STAT Care 06/16/17 22:08 Active CHEST 2 VIEWS (PA AND LAT) Stat Exams 06/16/17 22:00 Ordered BMP Stat Lab 06/16/17 22:17 Completed CBC W DIFF Stat Lab 06/16/17 22:17 Completed TROPONIN Stat Lab 06/16/17 22:17 Completed Medication Summary Generic Name Dose Route Start Last Admin Trade Name Freq PRN Reason Stop Dose Admin Sodium Chloride 1,000 mls @ 999 mls/hr 06/16/17 21:59 06/16/17 22:08 Sodium Chloride 0.9% 1000 Ml IV 06/16/17 22:59 999 mls/hr .Q1H1M STA Administration Discontinued Medications Generic Name Dose Route Start Last Admin Trade Name Freq PRN Reason Stop Dose Admin Sodium Chloride Confirm 06/16/17 22:07 Sodium Chloride 0.9% 1000 Ml Administered 06/16/17 22:08 Dose 1,000 mls @ ud .ROUTE .STK-MED ONE Morphine Sulfate 2 mg 06/16/17 21:59 06/16/17 22:09 Morphine Sulfate 2 Mg Inj IV 06/16/17 22:00 2 mg STAT ONE Administration Morphine Sulfate Confirm 06/16/17 22:07 Morphine Sulfate 2 Mg Inj Administered 06/16/17 22:08 Dose 2 mg .ROUTE .STK-MED ONE Potassium Bicarbonate 50 meq 06/16/17 22:41 K-Lyte 25 Meq PO 06/16/17 22:42 STAT ONE Lab/Rad Data: Laboratory Result Diagrams 06/16/17 22:17 06/16/17 22:17 Laboratory Results 06/16/17 06/16/17 06/16/17 Range/Units 22:17 22:17 22:17 WBC 6.6 (4.0-10.5) K/mm3 RBC 3.86 L (4.1-5.4) M/mm3 Hgb 12.2 (12.0-16.0) gm/dl Hct 35.9 (35-47) % MCV 93.0 (78-100) fl MCH 31.6 (26-32) pg MCHC 34.0 (32-36) g/dl RDW 11.9 (11.5-14.0) % Plt Count 233 (150-450) K/mm3 MPV 10.7 H (6-9.5) fl Gran % 57.7 (36.0-66.0) % Lymphocytes % 28.1 (24.0-44.0) % Monocytes % 6.9 (0.0-12.0) % Eosinophils % 6.8 H (0.00-5.0) % Basophils % 0.5 (0.0-0.4) % Basophils # 0.03 (0-0.4) Sodium 138 (136-145) mEq/L Potassium 3.3 L (3.5-5.1) mEq/L Chloride 104 (98-107) mEq/L Carbon Dioxide 20.5 L (21-32) mEq/L Anion Gap 16.9 H (5-15) MEQ/L BUN 16 (9-20) mg/dL Creatinine 0.73 (0.55-1.30) mg/dl Estimated GFR > 60 ML/MIN Glucose 101 (70-110) MG/DL Calcium 8.5 (8.5-10.1) mg/dL Troponin I < 0.017 (0.000-0.056) ng/ml - Progress Progress: improved Air Movement: good Blood Culture(s) Obtained: No Antibiotics given: No Counseled pt/family regarding: lab results, diagnosis, need for follow-up, rad results - Departure Time of Disposition: 22:48 Departure Disposition: Home Clinical Impression: Chest pain of uncertain etiology, Hypokalemia Condition: Stable Critical Care Time: No Referrals: AUDELIA MARCELO [Primary Care Provider] - Instructions: Atypical Chest Pain
[2017-06-16 22:20] LABS: BASOPHIL % 0.5 % (0.0-0.4); Eosinophil % 6.8 % (0.00-5.0); Granulocytes % 57.7 % (36.0-66.0); Lymphocytes % 28.1 % (24.0-44.0); Mean Corpuscular Hemoglobin 31.6 pg (26-32); Mean Platelet Volume 10.7 fl (6-9.5); Monocytes % 6.9 % (0.0-12.0); Platelet Count 233 K/mm3 (150-450); Red Blood Count 3.86 M/mm3 (4.1-5.4); Red Cell Distribution Width 11.9 % (11.5-14.0); White Blood Count 6.6 K/mm3 (4.0-10.5)
[2017-06-16 22:38] LABS: ANION GAP 16.9 MEQ/L (5-15); BLOOD UREA NITROGEN 16 mg/dL (9-20); CHLORIDE 104 mEq/L (98-107); Carbon Dioxide 20.5 mEq/L (21-32); Glucose 101 MG/DL (70-110); Potassium 3.3 mEq/L (3.5-5.1); SODIUM 138 mEq/L (136-145)
[2017-06-16] MEDS ORDERED: K-LYTE 25 MEQ PO ONE (22:41)
[2017-06-16] MEDS ORDERED: K-LYTE 25 MEQ ONE (22:49)
[2017-06-16 23:12] VITALS: BP 107/61; PULSE 71; O2SAT 100
--- NOTE | 2017-06-17 08:53 | XRAY ---
Indication: Chest pain, short of breath, and cough. Comparison: February 17, 2015. PA/lateral chest again demonstrates normal heart, lungs, and bony thorax.
== END 2017-06-16 23:13 | disposition home or self-care (01) ==
LOC: ED 21:40
DX: R07.89 Other chest pain (principal); E87.6 Hypokalemia; M54.5 Low back pain; R05 Cough; F17.200 Nicotine dependence, unspecified, uncomplicated
CPT/HCPCS: 36000; 36415; 71020; 80048; 84484; 85025; 93005; 96360; 96374; 99284; J2270; A9270-GY

== ENCOUNTER 2017-07-06 22:13 | Emergency (ER) | payer OTHER, SELFPAY ==
--- NOTE | 2017-07-06 22:37 | ERPHSYRPT ---
- History of Present Illness Time Seen by Provider: 07/06/17 22:17 Source: patient Exam Limitations: no limitations Patient Subjective Stated Complaint: pt is co cough ,runny nose and sore throat since yesterday feels hot then cold -using inhaler -cough is non productive Triage Nursing Assessment: pt is awake and alert and able to answer questions Physician History: sore throat, cough- non-productive and runny nose for two days; child with same ; no fever; no N&V or diarrhea; no travel; no gu symptoms; hx of asthma Timing/Duration: today (worse), yesterday (onset), worse Cough Quality/Degree: mild, dry cough Possible Cause: occasional episodes Modifying Factors: Improves With: albuterol inhaler, coughing Associated Symptoms: cough, nasal congestion, sore throat International travel in last 2 weeks: No Allergies/Adverse Reactions: meloxicam Allergy (Verified 07/06/17 22:32) sulfamethoxazole [From Bactrim] Allergy (Verified 07/06/17 22:32) Home Medications: Albuterol Sulfate [Proair Hfa] 2 puff IH DAILY PRN PRN 11/11/15 [History] Alprazolam [Xanax 0.5 mg] 1 mg PO TID PRN PRN 08/10/16 [History] Sertraline HCl 50 mg [Zoloft 50 mg Tablet] 100 mg PO DAILY 08/10/16 [History ] Ibuprofen 600 mg PO TID PRN 10/19/16 [History] Cyclobenzaprine HCl [Flexeril] 10 mg PO Q8HPRN PRN 06/16/17 [History] Fluticasone/Vilanterol [Breo Ellipta 100-25 Mcg INH] 1 each IH DAILY 06/16/17 [ History] Loratadine 10 mg [Claritin 10 mg] 10 mg PO DAILY 06/16/17 [History] Hx Tetanus, Diphtheria Vaccination/Date Given: No Hx Influenza Vaccination/Date Given: No Hx Pneumococcal Vaccination/Date Given: No - Review of Systems Constitutional: No Symptoms Eyes: No Symptoms Ears, Nose, & Throat: Nose Congestion, Nose Discharge, Throat Pain, No Ear Pain , No Tinnitus, No Epistaxis, No Throat Swelling Respiratory: Cough, Wheezing, No Dyspnea Cardiac: No Chest Pain, No Palpitations, No Syncope Abdominal/Gastrointestinal: No Abdominal Pain, No Nausea, No Vomiting, No Diarrhea Musculoskeletal: No Symptoms Skin: No Symptoms Neurological: No Symptoms Psychological: No Symptoms Endocrine: No Symptoms Hematologic/Lymphatic: No Symptoms Immunological/Allergic: No Symptoms - Past Medical History Pertinent Past Medical History: Yes Neurological History: No Pertinent History ENT History: No Pertinent History Cardiac History: No Pertinent History Respiratory History: Asthma Endocrine Medical History: No Pertinent History Musculoskeletal History: Degenerative Disk Disease GI Medical History: No Pertinent History History: No Pertinent History Psycho-Social History: Anxiety, Depression Female Reproductive Disorders: No Pertinent History - Past Surgical History Past Surgical History: Yes Neuro Surgical History: No Pertinent History Cardiac: No Pertinent History Respiratory: No Pertinent History Gastrointestinal: Cholecystectomy Genitourinary: No Pertinent History Musculoskeletal: No Pertinent History Female Surgical History: Section Other Surgical History: CS x3 - Social History Smoking Status: Never smoker How long have you smoked: 10 Exposure to second hand smoke: Yes Alcohol Use: None Drug Use: none Patient Lives Alone: No Significant Family History: no pertinent family hx - Female History Hx Last Menstrual Period: unknown Hx Now: No - Nursing Vital Signs Nursing Vital Signs: Initial Vital Signs Temperature 99.6 F 07/06/17 22:24 Pulse Rate 84 07/06/17 22:24 Respiratory Rate 16 07/06/17 22:24 Blood Pressure 128/72 07/06/17 22:24 O2 Sat by Pulse Oximetry 100 07/06/17 22:24 Pain Scale Pain Intensity 0 - Physical Exam General Appearance: mild distress, alert, obese Eye Exam: PERRL/EOMI, eyes nml inspection, No photophobia Ears, Nose, Throat Exam: TMs normal, moist mucous membranes, pharyngeal erythema Neck Exam: normal inspection, non-tender, supple, full range of motion, No meningismus, No JVD Respiratory Exam: normal breath sounds, lungs clear, airway intact, No chest tenderness, No respiratory distress, No crackles/rales, No rhonchi, No wheezing , No pleural rub Cardiovascular Exam: regular rate/rhythm, normal heart sounds, normal peripheral pulses, capillary refill <2 sec, No murmur Gastrointestinal/Abdomen Exam: soft, normal bowel sounds, No tenderness, No guarding, No rebound, No organomegaly Pelvic Exam: deferred Rectal Exam: deferred Back Exam: normal inspection, normal range of motion, No CVA tenderness, No vertebral tenderness, No rash Extremity Exam: normal inspection, normal range of motion, No orquidea's sign, No pedal edema Neurologic Exam: alert, oriented x 3, cooperative, manager production II-XII nml as tested, normal mood/affect, nml cerebellar function, nml station & gait Skin Exam: normal color, warm, dry, No rash SpO2 Interpretation: normal SpO2: 100 Oxygen Delivery: Room Air - Course Nursing assessment & vital signs reviewed: Yes Ordered Tests: Active Orders 24 hr Category Date Time Status Pulse Oximetry (ED) STAT Care 07/06/17 22:30 Active Re-Check Vital Signs STAT Care 07/06/17 22:30 Active CULTURE, THROAT Stat Lab 07/06/17 22:30 Received STREP SCREEN-BETA A Stat Lab 07/06/17 22:30 Completed Lab/Rad Data: Laboratory Results 07/06/17 Range/Units 22:30 Streptococcus Screen NEGATIVE (Negative) reviewed - Progress Progress: re-examined Air Movement: good Progress Note: 07/06/17 22:37 will check for strep and recheck; sats 100% RA; 07/06/17 23:21 strep neg; treatment plan and instructions given Blood Culture(s) Obtained: No Antibiotics given: No Counseled pt/family regarding: lab results, diagnosis, need for follow-up - Departure Time of Disposition: 23:22 Departure Disposition: Home Clinical Impression: URI (upper respiratory infection), Asthma Condition: Stable Critical Care Time: No Referrals: AUDELIA MARCELO [Primary Care Provider] - Instructions: Asthma -- Adult, Cough -- Adult Additional Instructions: clear fluids; continue meds; Follow-up with family doctor as directed. Call for appointment. Return if any problems. If you smoke please stop. Call or follow up with your family doctor for assistance if you need it to stop. Please wear your seatbelt when driving. Have a nice day. Thank you for allowing us to participate in your care today. :o) Dr Ger Fernando
[2017-07-06 23:36] VITALS: BP 100/70; PULSE 80; O2SAT 98
== END 2017-07-06 23:36 | disposition home or self-care (01) ==
LOC: ED 22:13
DX: J06.9 Acute upper respiratory infection, unspecified (principal); J45.909 Unspecified asthma, uncomplicated; R05 Cough; R06.2 Wheezing
CPT/HCPCS: 87070; 87430; 99283

== ENCOUNTER 2017-07-22 23:32 | Emergency (ER) | payer OTHER, SELFPAY ==
[2017-07-22 23:52] VITALS: O2SAT 99
[2017-07-23] MEDS ORDERED: TORAdol 30 mg Injection IM ONE (00:07)
[2017-07-23] MEDS ORDERED: Norflex 60 MG/2 ML IM ONE (00:07)
[2017-07-23] MEDS ORDERED: TORAdol 30 mg Injection ONE (00:15)
[2017-07-23] MEDS ORDERED: Norflex 60 MG/2 ML ONE (00:15)
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
[2017-07-23 01:54] VITALS: BP 96/55; PULSE 70
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
== END 2017-07-23 01:54 | disposition home or self-care (01) ==
LOC: ED 23:32
DX: S30.0XXA Contusion of lower back and pelvis, initial encounter (principal); S90.31XA Contusion of right foot, initial encounter; V86.69XA Passenger of other special all-terrain or other off-road motor vehicle injured in nontraffic accident, initial encounter
CPT/HCPCS: 72170; 72220; 73630; 84703; 96372; 99284; J1885; J2360

== ENCOUNTER 2017-09-08 23:43 | Emergency (ER) | payer OTHER, SELFPAY ==
[2017-09-09 00:05] VITALS: O2SAT 95
--- NOTE | 2017-09-09 00:11 | ERPHSYRPT ---
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 pain in the left shoulder after lifting. states unable to move her shoulder Triage Nursing Assessment: alert and oriented . pain in left shoulder on palpation.. unable to abduct/ adduct left arm with out severe pain. + radial pulsde present.. no obvious swelling or deformity noted. denies any other injury. 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 pain in the left shoulder after lifting. states unable to move her shoulder Occurred: just prior to arrival Quality: constant Severity of Pain-Max: moderate Severity of Pain-Current: moderate Extremities Pain Location: shoulder: left Allergies/Adverse Reactions: meloxicam Allergy (Verified 09/09/17 00:06) sulfamethoxazole [From Bactrim] Allergy (Verified 09/09/17 00:06) Home Medications: Albuterol Sulfate [Proair Hfa] 2 puff IH DAILY PRN PRN 11/11/15 [History] Alprazolam [Xanax 0.5 mg] 1 mg PO TID PRN PRN 08/10/16 [History] Sertraline HCl 50 mg [Zoloft 50 mg Tablet] 100 mg PO DAILY 08/10/16 [History ] Ibuprofen 600 mg PO TID PRN 10/19/16 [History] Cyclobenzaprine HCl [Flexeril] 10 mg PO Q8HPRN PRN 06/16/17 [History] Fluticasone/Vilanterol [Breo Ellipta 100-25 Mcg INH] 1 each IH DAILY 06/16/17 [ History] Loratadine 10 mg [Claritin 10 mg] 10 mg PO DAILY 06/16/17 [History] Hx Tetanus, Diphtheria Vaccination/Date Given: Yes Hx Influenza Vaccination/Date Given: No Hx Pneumococcal Vaccination/Date Given: No Immunizations Up to Date: Yes - Review of Systems Constitutional: No Symptoms Musculoskeletal: Joint Pain (left shoulder), No Deformity, No Fall - Past Medical History Pertinent Past Medical History: Yes Neurological History: No Pertinent History ENT History: No Pertinent History Cardiac History: No Pertinent History Respiratory History: Asthma Endocrine Medical History: No Pertinent History Musculoskeletal History: Degenerative Disk Disease GI Medical History: No Pertinent History History: No Pertinent History Psycho-Social History: Anxiety, Depression Female Reproductive Disorders: No Pertinent History - Past Surgical History Past Surgical History: Yes Neuro Surgical History: No Pertinent History Cardiac: No Pertinent History Respiratory: No Pertinent History Gastrointestinal: Cholecystectomy Genitourinary: No Pertinent History Musculoskeletal: No Pertinent History Female Surgical History: Section Other Surgical History: CS x3 - Social History Smoking Status: Never smoker How long have you smoked: 10 Exposure to second hand smoke: No Alcohol Use: None Drug Use: none Patient Lives Alone: No Significant Family History: no pertinent family hx - Female History Hx Last Menstrual Period: now Hx Now: No - Nursing Vital Signs Nursing Vital Signs: Initial Vital Signs Temperature 98.5 F 09/08/17 23:56 Pulse Rate 101 H 09/08/17 23:56 Respiratory Rate 20 09/08/17 23:56 Blood Pressure 127/64 09/08/17 23:56 O2 Sat by Pulse Oximetry 95 09/08/17 23:56 Pain Scale Pain Intensity 8 - Physical Exam General Appearance: no apparent distress Shoulder Exam: limited ROM, pain, soft tissue tenderness, No asymmetry, No bone tenderness, No deformity, No ecchymosis, No swelling SpO2: 95 Oxygen Delivery: Room Air - Course Nursing assessment & vital signs reviewed: Yes - Radiology Exams Shoulder X-ray Interpretation: Reviewed by me, Negative, No Fracture Ordered Tests: Active Orders 24 hr Category Date Time Status Sling Application STAT Care 09/09/17 00:23 Active SHOULDER Stat Exams 09/08/17 23:56 Ordered Medication Summary Discontinued Medications Generic Name Dose Route Start Last Admin Trade Name Freq PRN Reason Stop Dose Admin Ketorolac Tromethamine 60 mg 09/09/17 00:22 Toradol 30 Mg Injection IM 09/09/17 00:23 STAT ONE - Progress Progress: improved, pain not gone completely Progress Note: 09/09/17 00:23 left arm sling applied. Counseled pt/family regarding: diagnosis, need for follow-up, rad results - Departure Time of Disposition: 00:23 Departure Disposition: Home Clinical Impression: Sprain of shoulder, left Qualifiers: Encounter type: initial encounter Shoulder sprain type: unspecified sprain Qualified Code(s): S43.402A - Unspecified sprain of left shoulder joint, initial encounter Condition: Stable Critical Care Time: No Referrals: AUDELIA MARCELO [Primary Care Provider] - Instructions: Shoulder Sprain Additional Instructions: SPRAINS/STRAINS/CONTUSIONS 1. Rest the affected area as much as possible for the next few days. 2. Apply ice to the affected area for 20-30 minutes at a time, several times a day. 3. If you receive an elastic wrap, wear it only while awake for comfort and support. Re-wrap the elastic wrap if it feels too tight or too loose. 4. If swelling is present, elevate the affected part above the level of the heart for at least 2 to 3 days. 5. Use splints, slings, or crutches as instructed. 6. Watch for severe swelling, coldness, numbness, and discoloration of the fingers and toes. See your family physician or return to the emergency department if any of these are noted. Please follow the instructions given to you. Please take your medication as prescribed if given. If symptoms recur or get worse, come back to the emergency room if you cannot reach your primary care physician, or call your primary care physician for an appointment. Again if your symptoms get worse, come back to the emergency room. Thanks for visiting emergency room, and let us take care of you. Prescriptions: Naproxen 375 mg [Naprosyn 375 mg] 375 mg PO Q8H #15 tablet
[2017-09-09] MEDS ORDERED: TORAdol 30 mg Injection IM ONE (00:22)
[2017-09-09] MEDS ORDERED: TORAdol 30 mg Injection ONE (00:25)
[2017-09-09 00:47] VITALS: BP 126/74; PULSE 70
--- NOTE | 2017-09-09 07:50 | XRAY ---
Indication: Chronic shoulder pain. No known injury. 3 views of the left shoulder obtained. No bony, articular, or soft tissue abnormalities.
== END 2017-09-09 00:46 | disposition home or self-care (01) ==
LOC: ED 23:43
DX: S43.402A Unspecified sprain of left shoulder joint, initial encounter (principal); X50.0XXA Overexertion from strenuous movement or load, initial encounter
CPT/HCPCS: 73030; 96372; 99283; 99284; J1885

== ENCOUNTER 2017-12-02 21:40 | Emergency (ER) | payer MEDICAID, OTHER ==
[2017-12-02 21:54] VITALS: O2SAT 100
[2017-12-02] MEDS ORDERED: XYLOCAINE 1% HCL 20 ML MDV ONE (22:02)
[2017-12-02] MEDS ORDERED: XYLOCAINE 1% HCL 20 ML MDV IJ ONE (22:28)
[2017-12-02] MEDS ORDERED: CLEOCIN 150 MG CAPSULE PO ONE (22:30)
[2017-12-02] MEDS ORDERED: CLEOCIN 150 MG CAPSULE ONE (22:34)
[2017-12-02] MEDS ORDERED: TORAdol 30 mg Injection ONE (22:34)
[2017-12-02] MEDS ORDERED: TORAdol 30 mg Injection IM ONE (22:37)
--- NOTE | 2017-12-02 22:37 | ERPHSYRPT ---
- History of Present Illness Time Seen by Provider: 12/02/17 22:05 Source: patient Exam Limitations: no limitations Patient Subjective Stated Complaint: PT REPORTS SWELLING TO LEFT LABIA BEGINNING YESTERDAY-STATES THAT IT IS PAINFUL TO WALK OR MOVE-REPORTS JUST PRIOR TO ARRIVAL NOTICED BLOOD TINGED DRAINAGE-DENIES FEVER Triage Nursing Assessment: PT PINK WARM ET [id number] ALL QEUSTIONS CORRECTLY-PT AMBULATORY TO ED ROOM WITH NO NOTED DIFFICULTY-AREA WILL BE ACCESSED WITH MD Physician History: 27 y/o female comes to the ER with complaints of an abscess on the left part of the labia majora since yesterday. Pt describes the pain as sharp, constant, 8/ 10 and pt has not taken any pain meds. Pt is not able to keep comfortable. Pt denies any fever or chills. Timing/Duration: yesterday Quality: painful Severity: severe Location: genitalia Possible Causes: no cause identified Associated Symptoms: denies symptoms Allergies/Adverse Reactions: meloxicam Allergy (Verified 12/02/17 21:54) sulfamethoxazole [From Bactrim] Allergy (Verified 12/02/17 21:54) Home Medications: Albuterol Sulfate [Proair Hfa] 2 puff IH DAILY PRN PRN 11/11/15 [History] Alprazolam [Xanax 0.5 mg] 1 mg PO TID PRN PRN 08/10/16 [History] Sertraline HCl 50 mg [Zoloft 50 mg Tablet] 100 mg PO DAILY 08/10/16 [History ] Cyclobenzaprine HCl [Flexeril] 10 mg PO Q8HPRN PRN 06/16/17 [History] Fluticasone/Vilanterol [Breo Ellipta 100-25 Mcg INH] 1 each IH DAILY 06/16/17 [ History] Loratadine 10 mg [Claritin 10 mg] 10 mg PO DAILY 06/16/17 [History] Hx Tetanus, Diphtheria Vaccination/Date Given: Yes Hx Influenza Vaccination/Date Given: No Hx Pneumococcal Vaccination/Date Given: No Immunizations Up to Date: Yes - Review of Systems Constitutional: No Fever, No Chills Eyes: No Symptoms Ears, Nose, & Throat: No Symptoms Respiratory: No Cough, No Dyspnea Cardiac: No Chest Pain, No Edema, No Syncope Abdominal/Gastrointestinal: No Abdominal Pain, No Nausea, No Vomiting, No Diarrhea Genitourinary Symptoms: Other (abscess on left labia majora), No Dysuria, No Vaginal Bleeding, No Vaginal Discharge Musculoskeletal: No Back Pain, No Neck Pain Skin: No Rash Neurological: No Dizziness, No Focal Weakness, No Sensory Changes Psychological: No Symptoms Endocrine: No Symptoms All Other Systems: Reviewed and Negative - Past Medical History Pertinent Past Medical History: Yes Neurological History: No Pertinent History ENT History: No Pertinent History Cardiac History: No Pertinent History Respiratory History: Asthma Endocrine Medical History: No Pertinent History Musculoskeletal History: Degenerative Disk Disease GI Medical History: No Pertinent History History: No Pertinent History Psycho-Social History: Anxiety, Depression Female Reproductive Disorders: No Pertinent History - Past Surgical History Past Surgical History: Yes Neuro Surgical History: No Pertinent History Cardiac: No Pertinent History Respiratory: No Pertinent History Gastrointestinal: Cholecystectomy Genitourinary: No Pertinent History Musculoskeletal: No Pertinent History Female Surgical History: Section Other Surgical History: CS x3 - Social History Smoking Status: Never smoker How long have you smoked: 10 Exposure to second hand smoke: No Alcohol Use: None Drug Use: none Patient Lives Alone: No Significant Family History: no pertinent family hx - Female History Hx Last Menstrual Period: 2 WKS AGO Hx Now: No - Nursing Vital Signs Nursing Vital Signs: Initial Vital Signs Temperature 98.6 F 12/02/17 21:49 Pulse Rate 86 12/02/17 21:49 Respiratory Rate 20 12/02/17 21:49 Blood Pressure 123/73 12/02/17 21:49 O2 Sat by Pulse Oximetry 100 12/02/17 21:49 Pain Scale Pain Intensity 9 - Physical Exam General Appearance: no apparent distress, mild distress, alert Eye Exam: PERRL/EOMI, eyes nml inspection Ears, Nose, Throat Exam: normal ENT inspection, pharynx normal, moist mucous membranes Neck Exam: normal inspection, non-tender, supple, full range of motion Respiratory Exam: normal breath sounds, lungs clear, No respiratory distress Cardiovascular Exam: regular rate/rhythm, normal heart sounds Gastrointestinal/Abdomen Exam: soft, mass, No tenderness Pelvic Exam: other (2X2 abscess on left labia majora) Back Exam: normal inspection, normal range of motion, No CVA tenderness, No vertebral tenderness Extremity Exam: normal inspection, normal range of motion Neurologic Exam: alert, oriented x 3, cooperative, normal mood/affect, sensation nml, No motor deficits Skin Exam: normal color, warm, dry SpO2: 100 Oxygen Delivery: Room Air Procedures - Incision and Drainage Timeout: Performed Site: left labia majora Anesthesia: 1% Lidocaine cc's of anesthesia: other (20 cc) Blade Size: 11 I & D Procedure: hibiclens prep Results: moderate amount pus - Course Nursing assessment & vital signs reviewed: Yes Ordered Tests: Active Orders 24 hr Category Date Time Status CULTURE,WOUND Stat Lab 12/02/17 22:29 Uncollected Medication Summary Generic Name Dose Route Start Last Admin Trade Name Freq PRN Reason Stop Dose Admin Lidocaine HCl 20 ml 12/02/17 22:28 Xylocaine 1% Hcl 20 Ml Mdv IJ 12/02/17 22:29 STAT ONE Discontinued Medications Generic Name Dose Route Start Last Admin Trade Name Freq PRN Reason Stop Dose Admin Lidocaine HCl Confirm 12/02/17 22:02 Xylocaine 1% Hcl 20 Ml Mdv Administered 12/02/17 22:03 Dose 5 ml .ROUTE .[facility] ONE - Progress Progress: improved Progress Note: 12/02/17 22:34 See Procedure Note. Pt will be started on clindamycin and will F/U with [facility] - Departure Time of Disposition: 22:34 Departure Disposition: Home Clinical Impression: Abscess of labia majora Condition: Stable Critical Care Time: No Referrals: AUDELIA MARCELO [Primary Care Provider] - Instructions: Abscess Incision and Drainage Additional Instructions: Follow up with your [facility] doctor in the next 1-2 days for further recommendations. Prescriptions: Clindamycin HCl [Cleocin HCl] 300 mg PO TID #20 capsule Ketorolac Tromethamine [Toradol] 10 mg PO QID PRN #20 tablet PRN Reason: Pain
[2017-12-02 22:48] VITALS: BP 116/56; PULSE 90
== END 2017-12-02 22:56 | disposition home or self-care (01) ==
LOC: ED 21:40
PROC: 0U9MXZX Drainage of Vulva, External Approach, Diagnostic (ICD-10-PCS; principal; 2017-12-02)
DX: N76.4 Abscess of vulva (principal)
CPT/HCPCS: 56405; 87070; 96372; 99284; J1885; A9270-GY

== ENCOUNTER 2018-03-08 05:13 | Emergency (ER) | payer OTHER ==
[2018-03-08 05:32] VITALS: BP 122/77; PULSE 88; O2SAT 100
--- NOTE | 2018-03-08 05:44 | ERPHSYRPT ---
- History of Present Illness Time Seen by Provider: 03/08/18 05:39 Source: patient Exam Limitations: no limitations Patient Subjective Stated Complaint: pt states she woke at 0400 with a fluttering and pain in her ear Triage Nursing Assessment: pt alert and oreinted, asnwers questions approp. pt ambulatory with steady gait noted. respirations nonlabored with lungs cta. ext canal of rt ear- no redness or drainage noted. brown leg of insect noted moving in ear. Physician History: 27-year-old white female arrives with complaint of sensation of fluttering in her right ear which began at approximately 4:00 this morning while patient was sleeping. Patient denies any other complaints. Past medical history includes asthma, degenerative disc disease, anxiety, depression Past surgical history includes , cholecystectomy Timing/Duration: abrupt onset Severity: moderate ENT Location: ear (R) Prearrival Treatment: no prearrival treatment Modifying Factors: Improves With: nothing Associated Symptoms: ear pain (R), other (patient feels like she has fluttering in her right ear canal) Allergies/Adverse Reactions: meloxicam Allergy (Verified 03/08/18 05:33) sulfamethoxazole [From Bactrim] Allergy (Verified 03/08/18 05:33) Home Medications: Albuterol Sulfate [Proair Hfa] 2 puff IH DAILY PRN PRN 11/11/15 [History] ALPRAZolam [Xanax 0.5 mg] 1 mg PO TID PRN PRN 08/10/16 [History] Sertraline HCl 50 mg [Zoloft 50 mg Tablet] 100 mg PO DAILY 08/10/16 [History ] Cyclobenzaprine HCl [Flexeril] 10 mg PO Q8HPRN PRN 06/16/17 [History] Fluticasone/Vilanterol [Breo Ellipta 100-25 Mcg INH] 1 each IH DAILY 06/16/17 [ History] Loratadine 10 mg [Claritin 10 mg] 10 mg PO DAILY 06/16/17 [History] Hx Tetanus, Diphtheria Vaccination/Date Given: Yes Hx Influenza Vaccination/Date Given: No Hx Pneumococcal Vaccination/Date Given: No Immunizations Up to Date: Yes - Review of Systems Constitutional: No Fever, No Chills Eyes: No Symptoms Ears, Nose, & Throat: Ear Pain (right ear pain), Other (sensation of fluttering in her right ear canal) Respiratory: No Cough, No Dyspnea Cardiac: No Chest Pain, No Edema, No Syncope Abdominal/Gastrointestinal: No Abdominal Pain, No Nausea, No Vomiting, No Diarrhea Genitourinary Symptoms: No Dysuria Musculoskeletal: No Back Pain, No Neck Pain Skin: No Rash Neurological: No Dizziness, No Focal Weakness, No Sensory Changes Psychological: No Symptoms Endocrine: No Symptoms All Other Systems: Reviewed and Negative - Past Medical History Pertinent Past Medical History: Yes Neurological History: No Pertinent History ENT History: No Pertinent History Cardiac History: No Pertinent History Respiratory History: Asthma Endocrine Medical History: No Pertinent History Musculoskeletal History: Degenerative Disk Disease GI Medical History: No Pertinent History History: No Pertinent History Psycho-Social History: Anxiety, Depression Female Reproductive Disorders: No Pertinent History - Past Surgical History Past Surgical History: Yes Neuro Surgical History: No Pertinent History Cardiac: No Pertinent History Respiratory: No Pertinent History Gastrointestinal: Cholecystectomy Genitourinary: No Pertinent History Musculoskeletal: No Pertinent History Female Surgical History: Section Other Surgical History: CS x3 - Social History Smoking Status: Never smoker How long have you smoked: 10 Exposure to second hand smoke: No Alcohol Use: None Drug Use: none Patient Lives Alone: No Significant Family History: no pertinent family hx - Female History Hx Last Menstrual Period: 02/20/18 Hx Now: No - Nursing Vital Signs Nursing Vital Signs: Initial Vital Signs Temperature 97.7 F 03/08/18 05:23 Pulse Rate 88 03/08/18 05:23 Respiratory Rate 18 03/08/18 05:23 Blood Pressure 122/77 03/08/18 05:23 O2 Sat by Pulse Oximetry 100 03/08/18 05:23 Pain Scale Pain Intensity 10 - Physical Exam General Appearance: mild distress Eye Exam: bilateral eye: normal inspection, PERRL, EOMI Ear Exam: left ear: canal normal (is seated It looks like this is hard to think that the foot has leg and has a little hair that comes out l that's what I can see when I look in so I don't think it was leg I think this to waste to do some tightness region there so will try probably with a little if we but he can do that just with just like same thing escort water flushes stuff ), bilateral ear : auricle normal Nasal Exam: normal inspection Throat Exam: pharynx normal, moist mucus membranes, No tonsillar exudate Neck Exam: supple Cardiovascular/Respiratory Exam: normal breath sounds, regular rate/rhythm, No chest non-tender Abdominal Exam: non-tender (this pain), soft Neurologic Exam: alert, oriented x 3 (Isn't I've had a. Sometimes she'll), sensation nml, No motor deficits Skin Exam: normal color, warm, dry SpO2 Interpretation: normal (100%) SpO2: 100 Oxygen Delivery: Room Air - Course Nursing assessment & vital signs reviewed: Yes Ordered Tests: Medication Summary Discontinued Medications Generic Name Dose Route Start Last Admin Trade Name Freq PRN Reason Stop Dose Admin Amoxicillin 500 mg 03/08/18 07:03 Amoxil 500 Mg PO 03/08/18 07:04 STAT ONE - Progress Progress: improved Progress Note: 03/08/18 06:57 Patient with an insect in her right ear canal the abdomen which is visible. 2% lidocaine is instilled into the patient's right ear canal and approximately 15 minutes later attempts are made to irrigate the right ear canal. This was unsuccessful. Following this, small portion of the insect the abdomen is pulled out with forceps and a Martinez catheter is reviewed used to remove more of the insect. 2% lidocaine was again instilled in the patient's right ear canal. And again attempts were made to remove the remaining portion of the insect with both Martinez catheter as well as forceps. There was still some of the insect remaining. And further attempts were made to irrigate the patient's right ear canal. however, portions of the insect still remained. It was felt at this point that the patient will need to have a urinalysis and throat referral to completely remove the remaining portions of the insect from the patient's right ear canal. Therefore we will place patient on amoxicillin 500 mg orally 3 times a day for 10 days. Will refer patient to Dr. Fofana. - Departure Time of Disposition: 07:00 Departure Disposition: Home Clinical Impression: partial removal insect right ear canal Condition: Fair Critical Care Time: No Referrals: AUDELIA MARCELO [Primary Care Provider] - DESI BROOKS [COURTESY STAFF] - Additional Instructions: Return home/ Amoxicillin 500 mg orally 3 times a day for [address] Perez office this morning and arrange follow-up. Return for acute distress or for severe symptoms. Prescriptions: Amoxicillin 500 mg PO TID #30 capsule
[2018-03-08] MEDS ORDERED: AMOXIL 500 MG PO ONE (07:03)
[2018-03-08] MEDS ORDERED: AMOXIL 500 MG ONE (07:08)
== END 2018-03-08 07:12 | disposition home or self-care (01) ==
LOC: ED 05:13
PROC: 09C37ZZ Extirpation of Matter from Right External Auditory Canal, Via Natural or Artificial Opening (ICD-10-PCS; principal; 2018-03-08)
DX: T16.1XXA Foreign body in right ear, initial encounter (principal)
CPT/HCPCS: 69200; 99283; A9270-GY

== ENCOUNTER 2018-03-13 19:56 | Emergency (ER) | payer OTHER ==
[2018-03-13] MEDS ORDERED: ROCEPHIN 1 Gm-D5w 50 ml Bag** 1 G/50 ML IVPB IV STA (20:00)
[2018-03-13] MEDS ORDERED: Sodium Chloride 0.9% 1000 ML 1,000 ML IV STA ×2 (20:10→20:14)
[2018-03-13] MEDS ORDERED: TYLENOL 325 MG PO STA (20:15)
[2018-03-13] MEDS ORDERED: Sodium Chloride 0.9% 1000 ML 2,000 ML ONE (20:39)
[2018-03-13] MEDS ORDERED: ROCEPHIN 1 Gm-D5w 50 ml Bag** 1 G/50 ML IVPB IV ONE (20:39)
[2018-03-13] MEDS ORDERED: TYLENOL 325 MG ONE (20:39)
[2018-03-13 20:51] LABS: BASOPHIL % 0.1 % (0.0-0.4); Basophil (Absolute #) 0.01 (0-0.4); Eosinophil % 1.2 % (0.00-5.0); Eosinophil (Absolute #) 0.13 (0-0.5); Granulocyte Absolute (ANC) 9.18 (1.4-6.9); Granulocytes % 87.4 % (36.0-66.0); Hematocrit 42.8 % (35-47); Hemoglobin 14.8 gm/dl (12.0-16.0); Lymphocyte (Absolute #) 0.66 (1.0-4.6); Lymphocytes % 6.3 % (24.0-44.0); Mean Cell Volume 90.3 fl (78-100); Mean Corpuscular Hemoglobin 31.2 pg (26-32); Mean Corpuscular Hgb Concent. 34.6 g/dl (32-36); Mean Platelet Volume 11.1 fl (6-9.5); Monocyte (Absolute #) 0.52 (0.0-1.3); Platelet Count 219 K/mm3 (150-450); Red Blood Count 4.74 M/mm3 (4.1-5.4); Red Cell Distribution Width 12.3 % (11.5-14.0); White Blood Count 10.5 K/mm3 (4.0-10.5)
[2018-03-13 21:10] LABS: Appearance CLOUDY (CLEAR); Bilirubin NEGATIVE (NEGATIVE); Blood 250 Ery/ul (0-5); Glucose NEGATIVE (NEGATIVE); Ketones SMALL (NEGATIVE); Leukocyte Esterase 1+ (NEGATIVE); Nitrite NEGATIVE (NEGATIVE); Protein,Urine Dip 30 (Negative); Urobilinogen NORMAL mg/dL (0-1)
[2018-03-13 21:11] LABS: Bacteria MANY /HPF (NEGATIVE); Epithelial Cells MANY /HPF (FEW); Mucus MODERATE /HPF (NEGATIVE); RBC 25-50 /HPF (0-2)
--- NOTE | 2018-03-13 21:13 | ERPHSYRPT ---
- History of Present Illness Time Seen by Provider: 03/13/18 20:15 Source: patient Exam Limitations: clinical condition Patient Subjective Stated Complaint: pt arrives to ER via EMS from home with a litany of complaints inlcuding diarrhea that started 1030 this morning, around 1200 developed headache, chills, generalized body aches. Fell asleep around 1800 , woke up 1945 to use restroom, got out of bed, became dizzy, had syncopal episode for approx 2 minutes and woke up on floor. denies injury. Upon arrival to ER found to have fever 101.1F. Mentions cough for approx 3 days. Denies dysuria. Triage Nursing Assessment: A&Ox4 does not appear to be in any distress at this time with respirations easy even regular and unlabored. States cough is productive with green sputum. Physician History: PATIENT WITH A HISTORY OF CHRONIC LOW BACK PAIN AND ASTHMA COMPLAINS OF OF NEAR SYNCOPAL EPISODE GETTING OUT OF BED TO USE THE BATHROOM, PATIENT EASED HERSELF TO THE FLOOR. HAS A NONPRODUCTIVE COUGH, FEVER, SORETHROAT, GENERALIZED ACHES X 2 DAYS. HAS TAKEN NO TYLENOL OR MOTRIN FOR HER FEVER. DENIES DIFFICULTY BREATHING OR SHORTNESS OF BREATH. Timing/Duration: day(s), other Cough Quality/Degree: dry cough Possible Cause: occasional episodes Modifying Factors: Improves With: activity Associated Symptoms: fever, chest pain/soreness, lightheadedness, muscle aches Allergies/Adverse Reactions: meloxicam Allergy (Verified 03/13/18 20:10) sulfamethoxazole [From Bactrim] Allergy (Verified 03/13/18 20:10) Home Medications: Albuterol Sulfate [Proair Hfa] 2 puff IH DAILY PRN PRN 11/11/15 [History] ALPRAZolam [Xanax 0.5 mg] 1 mg PO TID PRN PRN 08/10/16 [History] Sertraline HCl 50 mg [Zoloft 50 mg Tablet] 100 mg PO DAILY 08/10/16 [History ] Cyclobenzaprine HCl [Flexeril] 10 mg PO Q8HPRN PRN 06/16/17 [History] Fluticasone/Vilanterol [Breo Ellipta 100-25 Mcg INH] 1 each IH DAILY 06/16/17 [ History] Loratadine 10 mg [Claritin 10 mg] 10 mg PO DAILY 06/16/17 [History] Hx Tetanus, Diphtheria Vaccination/Date Given: Yes Hx Influenza Vaccination/Date Given: No Hx Pneumococcal Vaccination/Date Given: No - Review of Systems Constitutional: Fever Eyes: No Symptoms Ears, Nose, & Throat: No Symptoms Respiratory: Cough Cardiac: Chest Pain Abdominal/Gastrointestinal: No Abdominal Pain, No Nausea, No Vomiting, No Diarrhea Genitourinary Symptoms: No Dysuria Musculoskeletal: Arthralgias Psychological: No Symptoms Endocrine: No Symptoms All Other Systems: Reviewed and Negative - Past Medical History Pertinent Past Medical History: Yes Neurological History: No Pertinent History ENT History: No Pertinent History Cardiac History: No Pertinent History Respiratory History: Asthma Endocrine Medical History: No Pertinent History Musculoskeletal History: Degenerative Disk Disease GI Medical History: No Pertinent History History: No Pertinent History Psycho-Social History: Anxiety, Depression Female Reproductive Disorders: No Pertinent History - Past Surgical History Past Surgical History: Yes Neuro Surgical History: No Pertinent History Cardiac: No Pertinent History Respiratory: No Pertinent History Gastrointestinal: Cholecystectomy Genitourinary: No Pertinent History Musculoskeletal: No Pertinent History Female Surgical History: Section Other Surgical History: CS x3 - Social History Smoking Status: Current every day smoker How long have you smoked: 10 Exposure to second hand smoke: Yes Alcohol Use: None Drug Use: none Patient Lives Alone: No Significant Family History: no pertinent family hx - Female History Hx Now: No - Nursing Vital Signs Nursing Vital Signs: Initial Vital Signs Temperature 101.1 F 03/13/18 19:58 Pulse Rate 99 H 03/13/18 19:58 Respiratory Rate 20 03/13/18 19:58 Blood Pressure 116/85 03/13/18 19:58 O2 Sat by Pulse Oximetry 97 03/13/18 19:58 Pain Scale Pain Intensity 8 - Physical Exam General Appearance: no apparent distress, alert Eye Exam: PERRL/EOMI, eyes nml inspection Ears, Nose, Throat Exam: normal ENT inspection, TMs normal, pharynx normal, moist mucous membranes Neck Exam: normal inspection, non-tender, supple, full range of motion Respiratory Exam: normal breath sounds, chest tenderness, lungs clear, No respiratory distress Cardiovascular Exam: regular rate/rhythm, normal heart sounds Gastrointestinal/Abdomen Exam: soft, normal bowel sounds (NONTENDER), No tenderness Back Exam: normal inspection, No CVA tenderness, No vertebral tenderness Extremity Exam: normal inspection, normal range of motion Neurologic Exam: alert, oriented x 3, cooperative, normal mood/affect, sensation nml, No motor deficits Skin Exam: normal color, warm, dry, No rash Lymphatic Exam: No adenopathy SpO2 Interpretation: normal SpO2: 97 Oxygen Delivery: Room Air - Course EKG Interpreted by Me: RATE, Sinus Rhythm, Sinus Tach (RATE 99), NORMAL AXIS - Radiology Exams Chest X-ray Interpretation: Interpreted by me, Negative, No Infiltrates - CT Exams Head CT Interpretation: Discussed w/radiologist, No/Intracranial Hemorrhag Ordered Tests: Active Orders 24 hr Category Date Time Status EKG-ER Only STAT Care 03/13/18 20:10 Active Orthostatic Vital Signs STAT Care 03/13/18 20:10 Active CHEST 1 VIEW (PORTABLE) Stat Exams 03/13/18 21:39 Taken HEAD WITHOUT CONTRAST [CT] Stat Exams 03/13/18 20:10 Taken BLOOD CULTURE Stat Lab 03/13/18 20:40 Received BMP Stat Lab 03/13/18 20:40 Completed CBC W DIFF Stat Lab 03/13/18 20:40 Completed CULTURE, THROAT Stat Lab 03/13/18 20:46 Received CULTURE,URINE Stat Lab 03/13/18 20:46 Received HCG,QUALITATIVE URINE Stat Lab 03/13/18 20:46 Completed Lactic Acid Stat Lab 03/13/18 20:45 Completed STREP SCREEN-BETA A Stat Lab 03/13/18 20:46 Completed UA W/ MICROSCOPIC Stat Lab 03/13/18 20:46 Completed Urine Triage Profile Stat Lab 03/13/18 21:12 Completed Medication Summary Discontinued Medications Generic Name Dose Route Start Last Admin Trade Name Glo PRN Reason Stop Dose Admin Acetaminophen 975 mg 03/13/18 20:15 03/13/18 21:05 Tylenol 325 Mg PO 03/13/18 20:16 975 mg STAT STA Administration Acetaminophen Confirm 03/13/18 20:39 Tylenol 325 Mg Administered 03/13/18 20:40 Dose 975 mg .ROUTE .STK-MED ONE Ceftriaxone Sodium/Dextrose 1 g in 50 mls @ 100 mls/hr 03/13/18 20:00 21:06 Rocephin 1 Gm-D5w 50 Ml Bag IV 03/13/18 20:29 100 mls/hr STAT STA 100 mls/hr Administration Sodium Chloride 1,000 mls @ 999 mls/hr 03/13/18 20:10 03/13/18 21:05 Sodium Chloride 0.9% 1000 Ml IV 03/13/18 21:10 999 mls/hr .Q1H1M STA Administration Sodium Chloride 1,000 mls @ 999 mls/hr 03/13/18 20:14 03/13/18 21:51 Sodium Chloride 0.9% 1000 Ml IV 03/13/18 21:14 999 mls/hr .Q1H1M STA Administration Sodium Chloride Confirm 03/13/18 20:39 Sodium Chloride 0.9% 1000 Ml Administered 03/13/18 20:40 Dose 2,000 mls @ ud .ROUTE .STK-MED ONE Ceftriaxone Sodium/Dextrose Confirm 03/13/18 20:39 Rocephin 1 Gm-D5w 50 Ml Bag Administered 03/13/18 20:40 Dose 1 g in 50 mls @ ud IV .STK-MED ONE Lab/Rad Data: Laboratory Result Diagrams 03/13/18 20:40 03/13/18 20:40 Laboratory Results 03/13/18 03/13/18 03/13/18 Range/Units 21:12 20:46 20:46 WBC (4.0-10.5) K/mm3 RBC (4.1-5.4) M/mm3 Hgb (12.0-16.0) gm/dl Hct (35-47) % MCV (78-100) fl MCH (26-32) pg MCHC (32-36) g/dl RDW (11.5-14.0) % Plt Count (150-450) K/mm3 MPV (6-9.5) fl Gran % (36.0-66.0) % Eos # (Auto) (0-0.5) Absolute Lymphs (auto) (1.0-4.6) Absolute Monos (auto) (0.0-1.3) Lymphocytes % (24.0-44.0) % Monocytes % (0.0-12.0) % Eosinophils % (0.00-5.0) % Basophils % (0.0-0.4) % Absolute Granulocytes (1.4-6.9) Basophils # (0-0.4) Sodium (137-145) mmol/L Potassium (3.5-5.1) mmol/L Chloride (98-107) mmol/L Carbon Dioxide (22-30) mmol/L Anion Gap (5-15) MEQ/L BUN (7-17) mg/dL Creatinine (0.52-1.04) mg/dL Estimated GFR ML/MIN Glucose (74-106) mg/dL Lactic Acid (0.4-2.0) Calcium (8.4-10.2) mg/dL Ur Collection Type Urine Color (YELLOW) Urine Appearance (CLEAR) Urine pH (5-6) Ur Specific [place] (1.005-1.025) Urine Protein (Negative) Urine Ketones (NEGATIVE) Urine Blood (0-5) Charles/ul Urine Nitrite (NEGATIVE) Urine Bilirubin (NEGATIVE) Urine Urobilinogen (0-1) mg/dL Ur Leukocyte Esterase (NEGATIVE) Urine Microscopic RBC (0-2) /HPF Urine Microscopic WBC (0-5) /HPF Ur Epithelial Cells (FEW) /HPF Urine Bacteria (NEGATIVE) /HPF Urine Mucus (NEGATIVE) /HPF Urine Culture Reflexed (NO) Urine Glucose (NEGATIVE) mg/dL Urine HCG, Qual (Negative) Urine Opiates Level NEGATIVE (NEGATIVE) Ur Methadone NEGATIVE (NEGATIVE) Urine Barbiturates NEGATIVE (NEGATIVE) Ur Phencyclidine (PCP) NEGATIVE (NEGATIVE) Urine Amphetamine NEGATIVE (NEGATIVE) U Benzodiazepine Level NEGATIVE (NEGATIVE) Urine Cocaine NEGATIVE (NEGATIVE) Urine Marijuana (THC) NEGATIVE (NEGATIVE) Influenza Type A Ag NEGATIVE (NEGATIVE) Influenza Type B Ag NEGATIVE (NEGATIVE) RSV (PCR) NEGATIVE (Negative) Streptococcus Screen NEGATIVE (Negative) Specimen Received 03/13/18 03/13/18 03/13/18 Range/Units 20:46 20:46 20:45 WBC (4.0-10.5) K/mm3 RBC (4.1-5.4) M/mm3 Hgb (12.0-16.0) gm/dl Hct (35-47) % MCV (78-100) fl MCH (26-32) pg MCHC (32-36) g/dl RDW (11.5-14.0) % Plt Count (150-450) K/mm3 MPV (6-9.5) fl Gran % (36.0-66.0) % Eos # (Auto) (0-0.5) Absolute Lymphs (auto) (1.0-4.6) Absolute Monos (auto) (0.0-1.3) Lymphocytes % (24.0-44.0) % Monocytes % (0.0-12.0) % Eosinophils % (0.00-5.0) % Basophils % (0.0-0.4) % Absolute Granulocytes (1.4-6.9) Basophils # (0-0.4) Sodium (137-145) mmol/L Potassium (3.5-5.1) mmol/L Chloride (98-107) mmol/L Carbon Dioxide (22-30) mmol/L Anion Gap (5-15) MEQ/L BUN (7-17) mg/dL Creatinine (0.52-1.04) mg/dL Estimated GFR ML/MIN Glucose (74-106) mg/dL Lactic Acid 0.9 (0.4-2.0) Calcium (8.4-10.2) mg/dL Ur Collection Type VOID Urine Color YELLOW (YELLOW) Urine Appearance CLOUDY (CLEAR) Urine pH 5.0 (5-6) Ur Specific [place] 1.020 (1.005-1.025) Urine Protein 30 (Negative) Urine Ketones SMALL (NEGATIVE) Urine Blood 250 (0-5) Charles/ul Urine Nitrite NEGATIVE (NEGATIVE) Urine Bilirubin NEGATIVE (NEGATIVE) Urine Urobilinogen NORMAL (0-1) mg/dL Ur Leukocyte Esterase 1+ (NEGATIVE) Urine Microscopic RBC 25-50 (0-2) /HPF Urine Microscopic WBC 10-15 (0-5) /HPF Ur Epithelial Cells MANY (FEW) /HPF Urine Bacteria MANY (NEGATIVE) /HPF Urine Mucus MODERATE (NEGATIVE) /HPF Urine Culture Reflexed YES (NO) Urine Glucose NEGATIVE (NEGATIVE) mg/dL Urine HCG, Qual NEGATIVE (Negative) Urine Opiates Level (NEGATIVE) Ur Methadone (NEGATIVE) Urine Barbiturates (NEGATIVE) Ur Phencyclidine (PCP) (NEGATIVE) Urine Amphetamine (NEGATIVE) U Benzodiazepine Level (NEGATIVE) Urine Cocaine (NEGATIVE) Urine Marijuana (THC) (NEGATIVE) Influenza Type A Ag (NEGATIVE) Influenza Type B Ag (NEGATIVE) RSV (PCR) (Negative) Streptococcus Screen (Negative) Specimen Received 03/13/18205403/13/18 03/13/18 Range/Units 20:40 20:40 WBC 10.5 (4.0-10.5) K/mm3 RBC 4.74 (4.1-5.4) M/mm3 Hgb 14.8 (12.0-16.0) gm/dl Hct 42.8 (35-47) % MCV 90.3 (78-100) fl MCH 31.2 (26-32) pg MCHC 34.6 (32-36) g/dl RDW 12.3 (11.5-14.0) % Plt Count 219 (150-450) K/mm3 MPV 11.1 H (6-9.5) fl Gran % 87.4 H (36.0-66.0) % Eos # (Auto) 0.13 (0-0.5) Absolute Lymphs (auto) 0.66 L (1.0-4.6) Absolute Monos (auto) 0.52 (0.0-1.3) Lymphocytes % 6.3 L (24.0-44.0) % Monocytes % 5.0 (0.0-12.0) % Eosinophils % 1.2 (0.00-5.0) % Basophils % 0.1 (0.0-0.4) % Absolute Granulocytes 9.18 H (1.4-6.9) Basophils # 0.01 (0-0.4) Sodium 135 L (137-145) mmol/L Potassium 3.8 (3.5-5.1) mmol/L Chloride 104 (98-107) mmol/L Carbon Dioxide 19 L (22-30) mmol/L Anion Gap 16.2 H (5-15) MEQ/L BUN 15 (7-17) mg/dL Creatinine 0.72 (0.52-1.04) mg/dL Estimated GFR > 60.0 ML/MIN Glucose 98 (74-106) mg/dL Lactic Acid (0.4-2.0) Calcium 9.3 (8.4-10.2) mg/dL Ur Collection Type Urine Color (YELLOW) Urine Appearance (CLEAR) Urine pH (5-6) Ur Specific [place] (1.005-1.025) Urine Protein (Negative) Urine Ketones (NEGATIVE) Urine Blood (0-5) Charles/ul Urine Nitrite (NEGATIVE) Urine Bilirubin (NEGATIVE) Urine Urobilinogen (0-1) mg/dL Ur Leukocyte Esterase (NEGATIVE) Urine Microscopic RBC (0-2) /HPF Urine Microscopic WBC (0-5) /HPF Ur Epithelial Cells (FEW) /HPF Urine Bacteria (NEGATIVE) /HPF Urine Mucus (NEGATIVE) /HPF Urine Culture Reflexed (NO) Urine Glucose (NEGATIVE) mg/dL Urine HCG, Qual (Negative) Urine Opiates Level (NEGATIVE) Ur Methadone (NEGATIVE) Urine Barbiturates (NEGATIVE) Ur Phencyclidine (PCP) (NEGATIVE) Urine Amphetamine (NEGATIVE) U Benzodiazepine Level (NEGATIVE) Urine Cocaine (NEGATIVE) Urine Marijuana (THC) (NEGATIVE) Influenza Type A Ag (NEGATIVE) Influenza Type B Ag (NEGATIVE) RSV (PCR) (Negative) Streptococcus Screen (Negative) Specimen Received - Progress Progress: improved Progress Note: 03/13/18 21:14 PLACED ONTO SEPSIS PROTOCOL 1 LITER BOLUS/HR X 2, ROCPEPHIN 1GM AFTER BLOOD CULTURES, LACTIC ACID 0.9 03/13/18 22:35 REPEAT TEMP 99.2 Blood Culture(s) Obtained: Yes Antibiotics given: Yes Counseled pt/family regarding: lab results, diagnosis, need for follow-up, rad results - Departure Time of Disposition: 21:35 Departure Disposition: Home Clinical Impression: NEAR SYNCOPE, ACUTE BRONCHITIS, URINARY TRACT INFECTION Condition: Stable Critical Care Time: No Referrals: AUDELIA MARCELO [Primary Care Provider] - Additional Instructions: DRINK PLENTY OF FLUIDS. TYLENOL OR MOTRIN NEEDED FOR FEVER. ANTIBIOTIC LEVAQUIN 500MG DAILY FOR 10 DAYS. CONSULT YOUR PRIMARY CARE PROVIDER FOR FOLLOWUP. Prescriptions: Levofloxacin [Levaquin] 500 mg PO DAILY #10 tablet
[2018-03-13 21:18] LABS: ANION GAP 16.2 MEQ/L (5-15); BLOOD UREA NITROGEN 15 mg/dL (7-17); CHLORIDE 104 mmol/L (98-107); Calcium 9.3 mg/dL (8.4-10.2); Carbon Dioxide 19 mmol/L (22-30); Creatinine 1 0.72 mg/dL (0.52-1.04); Glucose 98 mg/dL (74-106); Potassium 3.8 mmol/L (3.5-5.1); SODIUM 135 mmol/L (137-145)
[2018-03-13 21:22] LABS: INFLUENZA A NEGATIVE (NEGATIVE); INFLUENZA B NEGATIVE (NEGATIVE); RESPIRATORY SYNCTIAL VIRUS NEGATIVE (Negative)
[2018-03-13 21:32] LABS: Amphetamine,Urine NEGATIVE (NEGATIVE); Barbiturate,Urine NEGATIVE (NEGATIVE); Benzodiazepine,Urine NEGATIVE (NEGATIVE); Cocaine,Urine NEGATIVE (NEGATIVE); Methadone,Urine NEGATIVE (NEGATIVE); Opiate,Urine NEGATIVE (NEGATIVE); PCP,Urine NEGATIVE (NEGATIVE); THC,Urine NEGATIVE (NEGATIVE)
[2018-03-13 22:26] VITALS: BP 108/57; PULSE 90
[2018-03-13 22:38] VITALS: O2SAT 97
--- NOTE | 2018-03-14 08:31 | XRAY ---
Indication: Syncope. Multiple contiguous axial images obtained through the head without contrast. Comparison: August 30, 2016. Normal appearing brain parenchyma, ventricles, and bony calvarium. Visualized paranasal sinuses and mastoid air cells are clear. Impression: Stable normal CT head without contrast exam. CT DI 70.91
--- NOTE | 2018-03-14 09:42 | XRAY ---
Indication: Cough. Asthma attack. Syncope. Comparison: June 16, 2017. Portable chest again demonstrates normal heart, lungs, and bony thorax.
== END 2018-03-13 23:00 | disposition home or self-care (01) ==
LOC: ED 19:56
DX: R55 Syncope and collapse (principal); J20.9 Acute bronchitis, unspecified; N39.0 Urinary tract infection, site not specified
CPT/HCPCS: 36000; 36415; 70450; 71045; 80048; 80307; 81000; 83605; 84703; 85025; 87040; 87070; 87077; 87086; 87186; 87430; 87631; 93005; 96360; 96365; 99284; 99285; J0696; A9270-GY

== ENCOUNTER 2019-04-02 20:49 | Emergency (ER) | payer MEDICAID, OTHER ==
[2019-04-02 22:18] LABS: BASOPHIL % 0.2 % (0.0-0.4); Basophil (Absolute #) 0.02 (0-0.4); Eosinophil % 3.4 % (0.00-5.0); Eosinophil (Absolute #) 0.36 (0-0.5); Granulocyte Absolute (ANC) 7.05 (1.4-6.9); Granulocytes % 66.7 % (36.0-66.0); Hematocrit 39.7 % (35-47); Hemoglobin 13.5 gm/dl (12.0-16.0); Lymphocytes % 22.7 % (24.0-44.0); Mean Cell Volume 95.9 fl (78-100); Mean Corpuscular Hemoglobin 32.6 pg (26-32); Mean Platelet Volume 10.7 fl (6-9.5); Monocyte (Absolute #) 0.74 (0.0-1.3); Platelet Count 225 K/mm3 (150-450); Red Blood Count 4.14 M/mm3 (4.1-5.4); Red Cell Distribution Width 12.4 % (11.5-14.0); White Blood Count 10.6 K/mm3 (4.0-10.5)
[2019-04-02 22:21] LABS: Appearance CLEAR (CLEAR); Bacteria FEW /HPF (NEGATIVE); Bilirubin NEGATIVE (NEGATIVE); Blood MODERATE Ery/ul (0-5); Epithelial Cells RARE /HPF (FEW); Glucose NEGATIVE (NEGATIVE); Ketones NEGATIVE (NEGATIVE); Leukocyte Esterase NEGATIVE (NEGATIVE); Nitrite NEGATIVE (NEGATIVE); Protein,Urine Dip NEGATIVE (Negative); RBC 0-2 /HPF (0-2); Specific Gravity 1.002 (1.005-1.025); Urobilinogen NEGATIVE mg/dL (0-1)
[2019-04-02 22:25] LABS: ALBUMIN 4.3 g/dL (3.5-5.0); ALKALINE PHOSPHATASE 73 U/L (38-126); AMYLASE 60 U/L (30-110); ANION GAP 15.6 MEQ/L (5-15); BLOOD UREA NITROGEN 12 mg/dL (7-17); CHLORIDE 104 mmol/L (98-107); Calcium 9.5 mg/dL (8.4-10.2); Carbon Dioxide 25 mmol/L (22-30); Creatinine 1 0.65 mg/dL (0.52-1.04); Glucose 96 mg/dL (74-106); LIPASE 39 U/L (23-300); Potassium 4.4 mmol/L (3.5-5.1); SGOT/AST 17 U/L (14-36); SGPT/ALT 21 U/L (0-35); SODIUM 139 mmol/L (137-145); Total Protein 7.8 g/dL (6.3-8.2)
--- NOTE | 2019-04-03 01:48 | ERPHSYRPT ---
- History of Present Illness Time Seen by Provider: 04/02/19 22:10 Historian: patient Exam Limitations: no limitations Patient Subjective Stated Complaint: Pt states that she has a constant middle lower abd pain. Pt states that she has had a bowel movement today 04/02/19 not difficulties with stool. Pt has been passing gas throughout the day. Pt has been able to eat meals throughout the day denies having any nausea vomiting idigestion at this time. Pt states that she has been having abd pain since 1600 this evening the pain got to be worse around 1830 so she deceided to come to ER to be checked out she is rating her pain 9 out 10 at this time Triage Nursing Assessment: Pt states that she has a constant middle lower abd pain. Pt states that she has had a bowel movement today 04/02/19 not difficulties with stool. Pt has been passing gas throughout the day. Pt has been able to eat meals throughout the day denies having any nausea vomiting idigestion at this time. Pt states that she has been having abd pain since 1600 this evening the pain got to be worse around 1830 so she deceided to come to ER to be checked out she is rating her pain 9 out 10 at this time. Palable Pain in her Mid Lower Abd Pt decribes her pain as a constant tightness. Pt states that her pain is worse when she moves and walks. Physician History: 28 y/o white female presents with worsening bilat lower abd pain. pt has known h /o ovarian cysts and known left adnexal mass left side. pt denies n/v/d/ constipation. pt denies vaginal bleeding. Timing/Duration: today, other (chronic worse after 1600 today.) Quality: fullness, pressure Allergies/Adverse Reactions: meloxicam Allergy (Verified 04/02/19 22:34) sulfamethoxazole [From Bactrim] Allergy (Verified 04/02/19 22:34) Home Medications: Albuterol Sulfate [Proair Hfa] 2 puff IH DAILY PRN PRN 11/11/15 [History] ALPRAZolam [Xanax 0.5 mg] 1 mg PO TID PRN PRN 08/10/16 [History] Sertraline HCl 50 mg [Zoloft 50 mg Tablet] 100 mg PO DAILY 08/10/16 [History ] Cyclobenzaprine HCl [Flexeril] 10 mg PO Q8HPRN PRN 06/16/17 [History] Fluticasone/Vilanterol [Breo Ellipta 100-25 Mcg INH] 1 each IH DAILY 06/16/17 [ History] Loratadine 10 mg [Claritin 10 mg] 10 mg PO DAILY 06/16/17 [History] Hx Tetanus, Diphtheria Vaccination/Date Given: Yes Hx Influenza Vaccination/Date Given: Yes (11/05/18) Hx Pneumococcal Vaccination/Date Given: No Immunizations Up to Date: Yes - Review of Systems Constitutional: No Symptoms Eyes: No Symptoms Ears, Nose, & Throat: No Symptoms Respiratory: No Symptoms Cardiac: No Symptoms Abdominal/Gastrointestinal: Abdominal Pain (bilat lower quadrant.) Genitourinary Symptoms: No Symptoms Musculoskeletal: No Symptoms Skin: No Symptoms Neurological: No Symptoms Psychological: No Symptoms Endocrine: No Symptoms Hematologic/Lymphatic: No Symptoms Immunological/Allergic: No Symptoms All Other Systems: Reviewed and Negative - Past Medical History Pertinent Past Medical History: Yes Neurological History: No Pertinent History ENT History: No Pertinent History Cardiac History: No Pertinent History Respiratory History: Asthma Endocrine Medical History: No Pertinent History Musculoskeletal History: Degenerative Disk Disease GI Medical History: No Pertinent History History: No Pertinent History Psycho-Social History: Anxiety, Depression Female Reproductive Disorders: No Pertinent History - Past Surgical History Past Surgical History: Yes Neuro Surgical History: No Pertinent History Cardiac: No Pertinent History Respiratory: No Pertinent History Gastrointestinal: Cholecystectomy Genitourinary: No Pertinent History Musculoskeletal: No Pertinent History Female Surgical History: Section Other Surgical History: CS x3 - Social History Smoking Status: Current every day smoker How long have you smoked: 10 Years Exposure to second hand smoke: Yes Alcohol Use: None Drug Use: none Patient Lives Alone: No Significant Family History: no pertinent family hx - Female History Hx Last Menstrual Period: 03/04/19 Hx Now: No - Nursing Vital Signs Nursing Vital Signs: Initial Vital Signs Temperature 98.9 F 04/02/19 22:08 Pulse Rate 79 04/02/19 22:08 Respiratory Rate 24 04/02/19 22:08 Blood Pressure 106/90 04/02/19 22:08 O2 Sat by Pulse Oximetry 100 04/02/19 22:08 Pain Scale Pain Intensity 9 - Physical Exam General Appearance: no apparent distress, alert Eye Exam: PERRL/EOMI Ears, Nose, Throat Exam: normal ENT inspection, moist mucous membranes Neck Exam: normal inspection, non-tender, supple, full range of motion Respiratory Exam: normal breath sounds, lungs clear, airway intact, No chest tenderness, No respiratory distress Cardiovascular Exam: regular rate/rhythm, normal heart sounds, normal peripheral pulses Gastrointestinal/Abdomen Exam: soft, normal bowel sounds, tenderness (mild bilat lower quadrant), No guarding, No rebound Pelvic Exam: not done Rectal Exam: not done Back Exam: normal inspection, normal range of motion, No CVA tenderness, No vertebral tenderness Extremity Exam: normal inspection, normal range of motion, pelvis stable Neurologic Exam: alert, oriented x 3, cooperative, melter assistant II-XII nml as tested, normal mood/affect, nml cerebellar function, nml station & gait Skin Exam: normal color, warm, dry Lymphatic Exam: No adenopathy SpO2 Interpretation: normal SpO2: 100 O2 Delivery: Room Air - Course Nursing assessment & vital signs reviewed: Yes Ordered Tests: Active Orders 24 hr Category Date Time Status IV Insertion STAT Care 04/02/19 21:43 Active ABDOMEN AND PELVIS W/0 CONTRAS [CT] Stat Exams 04/02/19 21:45 Taken AMYLASE Stat Lab 04/02/19 22:18 Completed CBC W DIFF Stat Lab 04/02/19 22:18 Completed CMP Stat Lab 04/02/19 22:18 Completed HCG,QUALITATIVE URINE Stat Lab 04/02/19 22:00 Completed LIPASE Stat Lab 04/02/19 22:18 Completed Lactic Acid Stat Lab 04/02/19 21:43 Ordered UA W/RFX UR CULTURE Stat Lab 04/02/19 22:00 Completed Lab/Rad Data: Laboratory Result Diagrams 04/02/19 22:18 04/02/19 22:18 Laboratory Results 04/02/19 04/02/19 04/02/19 Range/Units 22:18 22:18 22:00 WBC 10.6 H (4.0-10.5) K/mm3 RBC 4.14 (4.1-5.4) M/mm3 Hgb 13.5 (12.0-16.0) gm/dl Hct 39.7 (35-47) % MCV 95.9 (78-100) fl MCH 32.6 H (26-32) pg MCHC 34.0 (32-36) g/dl RDW 12.4 (11.5-14.0) % Plt Count 225 (150-450) K/mm3 MPV 10.7 H (6-9.5) fl Gran % 66.7 H (36.0-66.0) % Eos # (Auto) 0.36 (0-0.5) Absolute Lymphs (auto) 2.40 (1.0-4.6) Absolute Monos (auto) 0.74 (0.0-1.3) Lymphocytes % 22.7 L (24.0-44.0) % Monocytes % 7.0 (0.0-12.0) % Eosinophils % 3.4 (0.00-5.0) % Basophils % 0.2 (0.0-0.4) % Absolute Granulocytes 7.05 H (1.4-6.9) Basophils # 0.02 (0-0.4) Sodium 139 (137-145) mmol/L Potassium 4.4 (3.5-5.1) mmol/L Chloride 104 (98-107) mmol/L Carbon Dioxide 25 (22-30) mmol/L Anion Gap 15.6 H (5-15) MEQ/L BUN 12 (7-17) mg/dL Creatinine 0.65 (0.52-1.04) mg/dL Estimated GFR > 60.0 ML/MIN Glucose 96 (74-106) mg/dL Calcium 9.5 (8.4-10.2) mg/dL Total Bilirubin 0.30 (0.2-1.3) mg/dL AST 17 (14-36) U/L ALT 21 (0-35) U/L Alkaline Phosphatase 73 (38-126) U/L Serum Total Protein 7.8 (6.3-8.2) g/dL Albumin 4.3 (3.5-5.0) g/dL Amylase 60 (30-110) U/L Lipase 39 (23-300) U/L Urine Color (YELLOW) Urine Appearance (CLEAR) Urine pH (5-6) Ur Specific Ewing (1.005-1.025) Urine Protein (Negative) Urine Ketones (NEGATIVE) Urine Blood (0-5) Charles/ul Urine Nitrite (NEGATIVE) Urine Bilirubin (NEGATIVE) Urine Urobilinogen (0-1) mg/dL Ur Leukocyte Esterase (NEGATIVE) Urine WBC (Auto) (0-5) /HPF Urine RBC (Auto) (0-2) /HPF U Epithel Cells (Auto) (FEW) /HPF Urine Bacteria (Auto) (NEGATIVE) /HPF Urine Culture Reflexed (NO) Urine Glucose (NEGATIVE) mg/dL Urine HCG, Qual NEGATIVE (Negative) 04/02/19 Range/Units 22:00 WBC (4.0-10.5) K/mm3 RBC (4.1-5.4) M/mm3 Hgb (12.0-16.0) gm/dl Hct (35-47) % MCV (78-100) fl MCH (26-32) pg MCHC (32-36) g/dl RDW (11.5-14.0) % Plt Count (150-450) K/mm3 MPV (6-9.5) fl Gran % (36.0-66.0) % Eos # (Auto) (0-0.5) Absolute Lymphs (auto) (1.0-4.6) Absolute Monos (auto) (0.0-1.3) Lymphocytes % (24.0-44.0) % Monocytes % (0.0-12.0) % Eosinophils % (0.00-5.0) % Basophils % (0.0-0.4) % Absolute Granulocytes (1.4-6.9) Basophils # (0-0.4) Sodium (137-145) mmol/L Potassium (3.5-5.1) mmol/L Chloride (98-107) mmol/L Carbon Dioxide (22-30) mmol/L Anion Gap (5-15) MEQ/L BUN (7-17) mg/dL Creatinine (0.52-1.04) mg/dL Estimated GFR ML/MIN Glucose (74-106) mg/dL Calcium (8.4-10.2) mg/dL Total Bilirubin (0.2-1.3) mg/dL AST (14-36) U/L ALT (0-35) U/L Alkaline Phosphatase (38-126) U/L Serum Total Protein (6.3-8.2) g/dL Albumin (3.5-5.0) g/dL Amylase (30-110) U/L Lipase (23-300) U/L Urine Color STRAW (YELLOW) Urine Appearance CLEAR (CLEAR) Urine pH 6.0 (5-6) Ur Specific Ewing 1.002 (1.005-1.025) Urine Protein NEGATIVE (Negative) Urine Ketones NEGATIVE (NEGATIVE) Urine Blood MODERATE (0-5) Charles/ul Urine Nitrite NEGATIVE (NEGATIVE) Urine Bilirubin NEGATIVE (NEGATIVE) Urine Urobilinogen NEGATIVE (0-1) mg/dL Ur Leukocyte Esterase NEGATIVE (NEGATIVE) Urine WBC (Auto) NONE (0-5) /HPF Urine RBC (Auto) 0-2 (0-2) /HPF U Epithel Cells (Auto) RARE (FEW) /HPF Urine Bacteria (Auto) FEW (NEGATIVE) /HPF Urine Culture Reflexed NO (NO) Urine Glucose NEGATIVE (NEGATIVE) mg/dL Urine HCG, Qual (Negative) - Progress Progress: pain not gone completely, re-examined Progress Note: 04/03/19 01:53 ct abd/pelvis-persistent left adnexal mass. no acute findings Counseled pt/family regarding: lab results, diagnosis, need for follow-up, rad results - Departure Departure Disposition: Home Clinical Impression: Abdominal pain Condition: Stable Critical Care Time: No Referrals: AUDELIA MARCELO [Primary Care Provider] - Additional Instructions: drink plenty of fluids. follow up with primary doctor for further management.
[2019-04-03] MEDS ORDERED: NORCO 5/325 MG PO ONE (01:55)
[2019-04-03] MEDS ORDERED: NORCO 5/325 MG ONE (02:16)
[2019-04-03 03:30] VITALS: BP 110/61; PULSE 76; O2SAT 96
--- NOTE | 2019-04-03 09:34 | XRAY ---
Indication: Lower abdominal pain. Multiple contiguous axial images obtained through the abdomen and pelvis without contrast as ordered. Comparison: February 19, 2017. Lung bases remain clear. Heart is not enlarged. Noncontrasted stomach and bowel loops appear nonobstructed. Normal appendix. Minimal sigmoid diverticulosis without diverticulitis. Again left adnexa cystic mass today measuring 4 cm, previously 5.7 cm. Tiny cul-de-sac fluid presumed from rupture/leaking cyst. Left kidney demonstrates a few small stable hyperdense round lesions, probable viscus/complex cysts. Again previous cholecystectomy. Remaining liver, pancreas, spleen, adrenal glands, kidneys, ureters, bladder, uterus, and aorta appear unremarkable for noncontrast exam. Osseous structures intact. No ventral or inguinal hernias. Impression: 1. Again 4 cm left adnexal cystic mass, probably ovary in etiology. Tiny cul-de-sac fluid presumed from rupture/leaking cyst. Pelvic sonogram may yield further information. 2. New sigmoid diverticulosis without diverticulitis. 3. Stable small left renal hyperdense rounded lesions, probable viscus/complex cysts. CT or MRI with contrast exam may yield further information. Comment: Preliminary interpretation was made by [facility] who does not report incidental left renal lesions and sigmoid diverticulosis. CT DI 23.68
== END 2019-04-03 03:40 | disposition home or self-care (01) ==
LOC: ED 20:49
DX: R10.30 Lower abdominal pain, unspecified (principal); N83.209 Unspecified ovarian cyst, unspecified side
CPT/HCPCS: 36000; 36415; 74176; 80053; 81001; 82150; 83690; 84703; 85025; 99284; A9270-GY

== ENCOUNTER 2019-07-30 17:26 | Emergency (ER) | payer MEDICAID, OTHER ==
[2019-07-30] MEDS ORDERED: Zofran 4 MG/2 ML VIAL IV ONE (17:30)
[2019-07-30] MEDS ORDERED: MORPHINE SULFATE 2 MG INJ IV ONE (17:30)
--- NOTE | 2019-07-30 17:30 | ERPHSYRPT ---
- History of Present Illness Time Seen by Provider: 07/30/19 17:26 Source: patient Exam Limitations: no limitations Physician History: patient has multiple vague complaints. Patient complains of wheezing and shortness of breath for 5 days. Patient has a known history of asthma. Patient complains of cough, shortness of breath, tingling and numbness in the arms, heaviness in the chest, heaviness in the leg. Patient states she took inhaler and nebulizer without much relief. Timing/Duration: day(s) (5) Cough Quality/Degree: moderate, dry cough Possible Cause: occasional episodes Modifying Factors: Improves With: nothing Associated Symptoms: chills, chest pain/soreness, cough, headache, shortness of breath, sore throat, wheezing International travel in last 2 weeks: No Allergies/Adverse Reactions: meloxicam Allergy (Verified 04/02/19 22:34) sulfamethoxazole [From Bactrim] Allergy (Verified 04/02/19 22:34) Home Medications: Albuterol Sulfate [Proair Hfa] 2 puff IH DAILY PRN PRN 11/11/15 [History] Sertraline HCl 50 mg [Zoloft 50 mg Tablet] 100 mg PO DAILY 08/10/16 [History ] Cyclobenzaprine HCl [Flexeril] 10 mg PO Q8HPRN PRN 06/16/17 [History] Fluticasone/Vilanterol [Breo Ellipta 100-25 Mcg INH] 1 each IH DAILY 06/16/17 [ History] Loratadine 10 mg [Claritin 10 mg] 10 mg PO DAILY 06/16/17 [History] Hx Tetanus, Diphtheria Vaccination/Date Given: Yes Hx Influenza Vaccination/Date Given: Yes (11/05/18) Hx Pneumococcal Vaccination/Date Given: No - Review of Systems Constitutional: Chills, Fatigue, Weakness, No Fever Eyes: No Symptoms Ears, Nose, & Throat: No Symptoms Respiratory: Dyspnea, Wheezing, No Cough Cardiac: Chest Pain, No Edema, No Syncope Abdominal/Gastrointestinal: No Abdominal Pain, No Nausea, No Vomiting, No Diarrhea Genitourinary Symptoms: No Dysuria Musculoskeletal: No Back Pain, No Neck Pain Skin: No Rash Neurological: Headache, No Dizziness, No Focal Weakness, No Sensory Changes Psychological: No Symptoms Endocrine: No Symptoms All Other Systems: Reviewed and Negative - Past Medical History Pertinent Past Medical History: Yes Neurological History: No Pertinent History ENT History: No Pertinent History Cardiac History: No Pertinent History Respiratory History: Asthma Endocrine Medical History: No Pertinent History Musculoskeletal History: Degenerative Disk Disease GI Medical History: No Pertinent History History: No Pertinent History Psycho-Social History: Anxiety, Depression Female Reproductive Disorders: No Pertinent History - Past Surgical History Past Surgical History: Yes Neuro Surgical History: No Pertinent History Cardiac: No Pertinent History Respiratory: No Pertinent History Gastrointestinal: Cholecystectomy Genitourinary: No Pertinent History Musculoskeletal: No Pertinent History Female Surgical History: Section Other Surgical History: CS x3 - Social History Smoking Status: Current every day smoker How long have you smoked: 10 Years Exposure to second hand smoke: Yes Alcohol Use: None Drug Use: none Patient Lives Alone: No Significant Family History: no pertinent family hx - Nursing Vital Signs Nursing Vital Signs: Initial Vital Signs Temperature 98.7 F 07/30/19 17:27 Pulse Rate 98 H 07/30/19 17:27 Respiratory Rate 22 07/30/19 17:27 Blood Pressure 142/99 07/30/19 17:27 O2 Sat by Pulse Oximetry 99 07/30/19 17:27 Pain Scale Pain Intensity 5 - Physical Exam General Appearance: no apparent distress, alert, other (patient exam in presence of female RN.) Eye Exam: PERRL/EOMI, eyes nml inspection Ears, Nose, Throat Exam: normal ENT inspection, TMs normal, pharynx normal, moist mucous membranes Neck Exam: normal inspection, non-tender, supple, full range of motion Respiratory Exam: normal breath sounds, lungs clear, No respiratory distress Cardiovascular Exam: regular rate/rhythm, normal heart sounds Gastrointestinal/Abdomen Exam: soft, No tenderness Back Exam: normal inspection, No CVA tenderness, No vertebral tenderness Extremity Exam: normal inspection, normal range of motion Neurologic Exam: alert, oriented x 3, cooperative, normal mood/affect, sensation nml, No motor deficits Skin Exam: normal color, warm, dry, No rash Lymphatic Exam: No adenopathy SpO2 Interpretation: normal - Course Nursing assessment & vital signs reviewed: Yes EKG Interpreted by Me: Sinus Rhythm, Sinus Tach, NORMAL AXIS, NORMAL INTERVALS, NORMAL QRS, Q-wave, Non-specific ST Changes Ordered Tests: Active Orders 24 hr Category Date Time Status Senior Javascript Developer STAT Care 07/30/19 17:31 Active EKG-ER Only STAT Care 07/30/19 17:30 Active IV Insertion STAT Care 07/30/19 17:30 Active CHEST 1 VIEW (PORTABLE) Stat Exams 07/30/19 17:30 Taken CBC W DIFF Stat Lab 07/30/19 18:15 Completed CMP Stat Lab 07/30/19 18:15 Completed HCG QUALITATIVE,SERUM Stat Lab 07/30/19 18:15 Completed TROPONIN Stat Lab 07/30/19 18:15 Completed Peak Expiratory Flow Rate ONCE RT 07/30/19 17:43 Active Respiratory Therapy Assessment DAILY RT 07/30/19 17:43 Active Medication Summary Discontinued Medications Generic Name Dose Route Start Last Admin Trade Name Freq PRN Reason Stop Dose Admin Albuterol/Ipratropium 3 ml 07/30/19 17:32 07/30/19 17:42 Duoneb 0.5-3 Mg/3 Ml Neb IH 07/30/19 17:33 3 ml STAT ONE Administration Albuterol/Ipratropium Confirm 07/30/19 17:38 Duoneb 0.5-3 Mg/3 Ml Neb Administered 07/30/19 17:39 Dose 3 ml IH .STK-MED ONE Azithromycin 500 mg 07/30/19 17:32 07/30/19 18:10 Zithromax 250 Mg Tablet PO 07/30/19 17:33 500 mg STAT ONE Administration Azithromycin Confirm 07/30/19 17:42 Zithromax 250 Mg Tablet Administered 07/30/19 17:43 Dose 500 mg .ROUTE .STK-MED ONE Methylprednisolone Sodium Succinate 125 mg 07/30/19 17:33 07/30/19 18:10 Solu-Medrol 125 Mg IV 07/30/19 17:34 125 mg STAT ONE Administration Methylprednisolone Sodium Succinate Confirm 07/30/19 17:42 Solu-Medrol 125 Mg Administered 07/30/19 17:43 Dose 125 mg .ROUTE .STK-MED ONE Morphine Sulfate 2 mg 07/30/19 17:30 07/30/19 18:09 Morphine Sulfate 2 Mg Inj IV 07/30/19 17:31 2 mg STAT ONE Administration Morphine Sulfate Confirm 07/30/19 17:42 Morphine Sulfate 2 Mg Inj Administered 07/30/19 17:43 Dose 2 mg .ROUTE .STK-MED ONE Ondansetron HCl 4 mg 07/30/19 17:30 07/30/19 18:10 Zofran 4 Mg/2 Ml Vial IV 07/30/19 17:31 4 mg STAT ONE Administration Ondansetron HCl Confirm 07/30/19 17:42 Zofran 4 Mg/2 Ml Vial Administered 07/30/19 17:43 Dose 4 mg .ROUTE .STK-[facility] ONE Lab/Rad Data: Laboratory Result Diagrams 07/30/19 18:15 07/30/19 18:15 Laboratory Results 07/30/19 07/30/19 07/30/19 Range/Units 18:15 18:15 18:15 WBC 7.9 (4.0-10.5) K/mm3 RBC 4.10 (4.1-5.4) M/mm3 Hgb 13.1 (12.0-16.0) gm/dl Hct 39.5 (35-47) % MCV 96.3 (78-100) fl MCH 32.0 (26-32) pg MCHC 33.2 (32-36) g/dl RDW 12.3 (11.5-14.0) % Plt Count 236 (150-450) K/mm3 MPV 10.8 H (6-9.5) fl Gran % 53.6 (36.0-66.0) % Eos # (Auto) 0.54 H (0-0.5) Absolute Lymphs (auto) 2.50 (1.0-4.6) Absolute Monos (auto) 0.60 (0.0-1.3) Lymphocytes % 31.6 (24.0-44.0) % Monocytes % 7.6 (0.0-12.0) % Eosinophils % 6.8 H (0.00-5.0) % Basophils % 0.4 (0.0-0.4) % Absolute Granulocytes 4.23 (1.4-6.9) Basophils # 0.03 (0-0.4) Sodium 143 (137-145) mmol/L Potassium 3.9 (3.5-5.1) mmol/L Chloride 105 (98-107) mmol/L Carbon Dioxide 26 (22-30) mmol/L Anion Gap 15.5 H (5-15) MEQ/L BUN 15 (7-17) mg/dL Creatinine 0.88 (0.52-1.04) mg/dL Estimated GFR > 60.0 ML/MIN Glucose 82 (74-106) mg/dL Calcium 9.1 (8.4-10.2) mg/dL Total Bilirubin 0.30 (0.2-1.3) mg/dL AST 20 (14-36) U/L ALT 19 (0-35) U/L Alkaline Phosphatase 71 (38-126) U/L Troponin I < 0.012 (0.000-0.034) ng/mL Serum Total Protein 7.5 (6.3-8.2) g/dL Albumin 4.1 (3.5-5.0) g/dL Serum , Qual NEGATIVE (Negative) - Progress Progress: improved Air Movement: good Progress Note: 07/30/19 19:01 no clinical evidence of ACS. The workup is also negative. Blood Culture(s) Obtained: No Antibiotics given: Yes Counseled pt/family regarding: lab results, diagnosis, need for follow-up, rad results - Departure Departure Disposition: Home Clinical Impression: Chest pain of uncertain etiology, Bronchitis Condition: Good Critical Care Time: No Referrals: AUDELIA MARCELO [Primary Care Provider] - 08/01/19 Instructions: Asthma, Adult (DC), Acute Bronchitis Prescriptions: Azithromycin 250 mg [Zithromax 250 MG TABLET] 250 mg PO ZPACK #6 tablet Prednisone 5 mg [Deltasone 5 mg] 5 mg PO BID 5 Days #10 tablet
[2019-07-30] MEDS ORDERED: DUONEB 0.5-3 MG/3 ml Neb IH ONE ×2 (17:32→17:38)
[2019-07-30] MEDS ORDERED: Zithromax 250 MG TABLET PO ONE (17:32)
[2019-07-30] MEDS ORDERED: solu-MEDROL 125 MG IV ONE (17:33)
[2019-07-30 17:34] VITALS: O2SAT 99
[2019-07-30] MEDS ORDERED: Zofran 4 MG/2 ML VIAL ONE (17:42)
[2019-07-30] MEDS ORDERED: solu-MEDROL 125 MG ONE (17:42)
[2019-07-30] MEDS ORDERED: MORPHINE SULFATE 2 MG INJ ONE (17:42)
[2019-07-30] MEDS ORDERED: Zithromax 250 MG TABLET ONE (17:42)
[2019-07-30 18:23] LABS: BASOPHIL % 0.4 % (0.0-0.4); Basophil (Absolute #) 0.03 (0-0.4); Eosinophil % 6.8 % (0.00-5.0); Eosinophil (Absolute #) 0.54 (0-0.5); Granulocyte Absolute (ANC) 4.23 (1.4-6.9); Granulocytes % 53.6 % (36.0-66.0); Hematocrit 39.5 % (35-47); Hemoglobin 13.1 gm/dl (12.0-16.0); Lymphocytes % 31.6 % (24.0-44.0); Mean Cell Volume 96.3 fl (78-100); Mean Corpuscular Hgb Concent. 33.2 g/dl (32-36); Mean Platelet Volume 10.8 fl (6-9.5); Monocytes % 7.6 % (0.0-12.0); Platelet Count 236 K/mm3 (150-450); Red Cell Distribution Width 12.3 % (11.5-14.0); White Blood Count 7.9 K/mm3 (4.0-10.5)
[2019-07-30 18:47] LABS: ALBUMIN 4.1 g/dL (3.5-5.0); ALKALINE PHOSPHATASE 71 U/L (38-126); ANION GAP 15.5 MEQ/L (5-15); BLOOD UREA NITROGEN 15 mg/dL (7-17); CHLORIDE 105 mmol/L (98-107); Calcium 9.1 mg/dL (8.4-10.2); Carbon Dioxide 26 mmol/L (22-30); Creatinine 1 0.88 mg/dL (0.52-1.04); Glucose 82 mg/dL (74-106); Potassium 3.9 mmol/L (3.5-5.1); SGOT/AST 20 U/L (14-36); SGPT/ALT 19 U/L (0-35); SODIUM 143 mmol/L (137-145); Total Protein 7.5 g/dL (6.3-8.2)
[2019-07-30 18:48] LABS: TROPONIN < 0.012 ng/mL (0.000-0.034)
[2019-07-30 19:59] VITALS: BP 105/69; PULSE 59
--- NOTE | 2019-07-31 08:44 | XRAY ---
Indication: Right chest pain. Comparison: March 13, 2018. Portable chest again demonstrates normal heart, lungs, and bony thorax.
== END 2019-07-30 20:00 | disposition home or self-care (01) ==
LOC: ED 17:26
DX: R07.9 Chest pain, unspecified (principal); J40 Bronchitis, not specified as acute or chronic
CPT/HCPCS: 36000; 36415; 71045; 80053; 81025; 84484; 85025; 93005; 93041; 94150; 94640; 96374; 96375; 99284; J2270; J2405; J2930; A9270-GY

== ENCOUNTER 2019-12-21 21:49 | Emergency (ER) | payer OTHER ==
[2019-12-21] MEDS ORDERED: Zofran 4 MG/2 ML VIAL IV ONE (21:59)
[2019-12-21] MEDS ORDERED: DUONEB 0.5-3 MG/3 ml Neb IH ONE ×2 (21:59→22:14)
[2019-12-21] MEDS ORDERED: solu-MEDROL 125 MG IV ONE (21:59)
[2019-12-21] MEDS ORDERED: Sodium Chloride 0.9% 1000 ML 1,000 ML IV STA (21:59)
[2019-12-21 22:27] LABS: Absolute Neutrophil Ct (ANC) 5.73 (1.4-6.9); BASOPHIL % 0.4 % (0.0-0.4); Basophil (Absolute #) 0.04 (0-0.4); Eosinophil % 6.8 % (0.00-5.0); Eosinophil (Absolute #) 0.64 (0-0.5); Hematocrit 38.8 % (35-47); Hemoglobin 13.4 gm/dl (12.0-16.0); Lymphocyte (Absolute #) 2.39 (1.0-4.6); Lymphocytes % 25.3 % (24.0-44.0); Mean Cell Volume 93.9 fl (78-100); Mean Corpuscular Hemoglobin 32.4 pg (26-32); Mean Corpuscular Hgb Concent. 34.5 g/dl (32-36); Mean Platelet Volume 10.6 fl (7.5-11.0); Monocyte (Absolute #) 0.65 (0.0-1.3); Monocytes % 6.9 % (0.0-12.0); Neutrophil % 60.6 % (36.0-66.0); Platelet Count 262 K/mm3 (150-450); Red Blood Count 4.13 M/mm3 (4.1-5.4); Red Cell Distribution Width 12.2 % (11.5-14.0); White Blood Count 9.5 K/mm3 (4.0-10.5)
[2019-12-21] MEDS ORDERED: solu-MEDROL 125 MG ONE (22:35)
[2019-12-21] MEDS ORDERED: Sodium Chloride 0.9% 1000 ML 1,000 ML ONE (22:35)
[2019-12-21] MEDS ORDERED: Zofran 4 MG/2 ML VIAL ONE (22:35)
[2019-12-21 22:48] LABS: ALBUMIN 4.3 g/dL (3.5-5.0); ALKALINE PHOSPHATASE 81 U/L (38-126); AMYLASE 49 U/L (30-110); ANION GAP 11.9 MEQ/L (5-15); BLOOD UREA NITROGEN 13 mg/dL (7-17); CHLORIDE 106 mmol/L (98-107); Calcium 9.1 mg/dL (8.4-10.2); Carbon Dioxide 26 mmol/L (22-30); Creatinine 1 0.63 mg/dL (0.52-1.04); Glucose 86 mg/dL (74-106); LIPASE 49 U/L (23-300); NT PRO BNP 76.9 pg/mL (0-450); Potassium 3.3 mmol/L (3.5-5.1); SGOT/AST 26 U/L (14-36); SGPT/ALT 27 U/L (0-35); SODIUM 141 mmol/L (137-145); Total Protein 8.1 g/dL (6.3-8.2)
--- NOTE | 2019-12-21 22:59 | ERPHSYRPT ---
- History of Present Illness Time Seen by Provider: 12/21/19 22:53 Source: patient, family Exam Limitations: no limitations Patient Subjective Stated Complaint: pt states she had sudden onset shortness of breath begining approx 30 min prior to arrival. states she was diagnosed with bronchitis 2 weeks ago and doesnt feel like she has ever gotten over it. has occasional productive cough. states pain radiates from chest to lt lower abd. Triage Nursing Assessment: pt alert and oriented. answers questions approp. pt ambulatory with steady gait noted. respirations nonlabored with insp and exp wheezes noted in rt upper, otherwise cta. skin pink warm and dry. abd soft and nontender with bowel osunds x4 quads. Physician History: pt had bronchitis 2 weeks ago and completed AB, developed acute SOBreath today more than her usual asthma and some productive brown sputum; also with left flank rib pain ; abd is nontender; concerns for flu or strep with sore throat now also; denies prior DVT or PE; Timing/Duration: today Cough Quality/Degree: dry cough, productive cough Possible Cause: no prior episodes Modifying Factors: Improves With: coughing, deep breath Associated Symptoms: fever, cough, shortness of breath, sore throat, wheezing International travel in last 2 weeks: No Allergies/Adverse Reactions: meloxicam Allergy (Verified 12/21/19 22:07) sulfamethoxazole [From Bactrim] Allergy (Verified 12/21/19 22:07) Home Medications: Albuterol Sulfate [Proair Hfa] 2 puff IH DAILY PRN PRN 11/11/15 [History] Sertraline HCl 50 mg [Zoloft 50 mg Tablet] 100 mg PO DAILY 08/10/16 [History ] Cyclobenzaprine HCl [Flexeril] 10 mg PO Q8HPRN PRN 06/16/17 [History] Fluticasone/Vilanterol [Breo Ellipta 100-25 Mcg INH] 1 each IH DAILY 06/16/17 [ History] Loratadine 10 mg [Claritin 10 mg] 10 mg PO DAILY 06/16/17 [History] Hx Tetanus, Diphtheria Vaccination/Date Given: Yes Hx Influenza Vaccination/Date Given: No Hx Pneumococcal Vaccination/Date Given: No Immunizations Up to Date: Yes - Review of Systems Constitutional: Fever, No Chills Eyes: No Symptoms Ears, Nose, & Throat: Throat Pain Respiratory: Cough, Dyspnea Cardiac: No Chest Pain, No Edema, No Syncope Abdominal/Gastrointestinal: Nausea, No Abdominal Pain, No Vomiting, No Diarrhea Genitourinary Symptoms: No Dysuria Musculoskeletal: No Back Pain, No Neck Pain Skin: No Rash Neurological: No Dizziness, No Focal Weakness, No Sensory Changes Psychological: No Symptoms Endocrine: No Symptoms Hematologic/Lymphatic: No Symptoms Immunological/Allergic: No Symptoms All Other Systems: Reviewed and Negative - Past Medical History Pertinent Past Medical History: Yes Neurological History: No Pertinent History ENT History: No Pertinent History Cardiac History: No Pertinent History Respiratory History: Asthma Endocrine Medical History: No Pertinent History Musculoskeletal History: Degenerative Disk Disease GI Medical History: No Pertinent History History: No Pertinent History Psycho-Social History: Anxiety, Depression Female Reproductive Disorders: No Pertinent History - Past Surgical History Past Surgical History: Yes Neuro Surgical History: No Pertinent History Cardiac: No Pertinent History Respiratory: No Pertinent History Gastrointestinal: Cholecystectomy Genitourinary: No Pertinent History Musculoskeletal: No Pertinent History Female Surgical History: Section Other Surgical History: CS x3 - Social History Smoking Status: Current every day smoker How long have you smoked: 13 Years Exposure to second hand smoke: Yes Alcohol Use: None Drug Use: none Patient Lives Alone: No Significant Family History: no pertinent family hx - Female History Hx Last Menstrual Period: last month Hx Now: Yes (pending hcg) - Nursing Vital Signs Nursing Vital Signs: Initial Vital Signs Temperature 97.5 F 12/21/19 21:51 Pulse Rate 98 H 12/21/19 21:51 Respiratory Rate 18 12/21/19 21:51 Blood Pressure 131/66 12/21/19 21:51 O2 Sat by Pulse Oximetry 100 12/21/19 21:51 Pain Scale Pain Intensity 5 - Physical Exam General Appearance: no apparent distress, alert Eye Exam: PERRL/EOMI, eyes nml inspection Ears, Nose, Throat Exam: TMs normal, moist mucous membranes, pharyngeal erythema Neck Exam: normal inspection, non-tender, supple, full range of motion Respiratory Exam: lungs clear, airway intact, wheezing, No respiratory distress Cardiovascular Exam: regular rate/rhythm, normal heart sounds Gastrointestinal/Abdomen Exam: soft, No tenderness Pelvic Exam: deferred Rectal Exam: deferred Back Exam: normal inspection, No CVA tenderness, No vertebral tenderness Extremity Exam: normal inspection, normal range of motion Neurologic Exam: alert, oriented x 3, cooperative, normal mood/affect, sensation nml, No motor deficits Skin Exam: normal color, warm, dry, No rash Lymphatic Exam: No adenopathy SpO2: 99 - Course Nursing assessment & vital signs reviewed: Yes EKG Interpreted by Me: Sinus Rhythm, NORMAL AXIS, NORMAL INTERVALS, Non- specific ST Changes - Radiology Exams Chest X-ray Interpretation: Reviewed by me, Other (mild peribronchial cuffing) Ordered Tests: Active Orders 24 hr Category Date Time Status Customs Port Director STAT Care 12/21/19 22:01 Active EKG-ER Only STAT Care 12/21/19 21:59 Active IV Insertion STAT Care 12/21/19 21:59 Active Pulse Oximetry (ED) STAT Care 12/21/19 21:59 Active CHEST 2 VIEWS (PA AND LAT) Stat Exams 12/21/19 22:00 Taken AMYLASE Stat Lab 12/21/19 22:30 Completed CBC W DIFF Stat Lab 12/21/19 22:30 Completed CMP Stat Lab 12/21/19 22:30 Completed D-DIMER QUANTITATIVE Stat Lab 12/21/19 22:30 Completed HCG QUALITATIVE,SERUM Stat Lab 12/21/19 22:30 Completed LIPASE Stat Lab 12/21/19 22:30 Completed Lactic Acid Stat Lab 12/21/19 22:25 Completed NT PRO BNP Stat Lab 12/21/19 22:30 Completed TROPONIN Q3H Lab 12/21/19 22:30 Completed TROPONIN Q3H Lab 12/22/19 01:00 Ordered TROPONIN Q3H Lab 12/22/19 04:00 Ordered TROPONIN Q3H Lab 12/22/19 07:00 Ordered TROPONIN Q3H Lab 12/22/19 10:00 Ordered UA W/RFX UR CULTURE Stat Lab 12/21/19 23:43 Completed Peak Expiratory Flow Rate ONCE RT 12/21/19 22:29 Active Respiratory Therapy Assessment DAILY RT 12/21/19 22:29 Active Medication Summary Generic Name Dose Route Start Last Admin Trade Name Freq PRN Reason Stop Dose Admin Potassium Chloride 20 meq in 100 mls @ 50 mls/hr 12/21/19 23:29 12/21/19 23: 42 Potassium Chloride 20 Meq In Water 100ml IV 12/22/19 01:28 50 mls/hr STAT ONE Administration Discontinued Medications Generic Name Dose Route Start Last Admin Trade Name Freq PRN Reason Stop Dose Admin Albuterol/Ipratropium 3 ml 12/21/19 21:59 12/21/19 22:26 Duoneb 0.5-3 Mg/3 Ml Neb IH 12/21/19 22:00 3 ml STAT ONE Administration Albuterol/Ipratropium Confirm 12/21/19 22:14 Duoneb 0.5-3 Mg/3 Ml Neb Administered 12/21/19 22:15 Dose 3 ml IH .STK-MED ONE Diphenhydramine HCl 25 mg 12/21/19 23:06 12/21/19 23:24 Benadryl 50 Mg/Ml IV 12/21/19 23:07 25 mg STAT ONE Administration Diphenhydramine HCl Confirm 12/21/19 23:18 Benadryl 50 Mg/Ml Administered 12/21/19 23:19 Dose 50 mg .ROUTE .STK-MED ONE Sodium Chloride 1,000 mls @ 999 mls/hr 12/21/19 21:59 12/22/19 00:53 Sodium Chloride 0.9% 1000 Ml IV 12/21/19 22:59 Infused .Q1H1M STA Infusion Sodium Chloride Confirm 12/21/19 22:35 Sodium Chloride 0.9% 1000 Ml Administered 12/21/19 22:36 Dose 1,000 mls @ ud .ROUTE .STK-MED ONE Potassium Chloride Confirm 12/21/19 23:40 Potassium Chloride 20 Meq In Water 100ml Administered 12/21/19 23:41 Dose 100 mls @ ud IV .STK-MED ONE Methylprednisolone Sodium Succinate 125 mg 12/21/19 21:59 12/21/19 22:43 Solu-Medrol 125 Mg IV 12/21/19 22:00 125 mg STAT ONE Administration Methylprednisolone Sodium Succinate Confirm 12/21/19 22:35 Solu-Medrol 125 Mg Administered 12/21/19 22:36 Dose 125 mg .ROUTE .STK-MED ONE Morphine Sulfate 4 mg 12/21/19 23:06 12/21/19 23:24 Morphine Sulfate 4 Mg Inj IV 12/21/19 23:07 4 mg STAT ONE Administration Morphine Sulfate Confirm 12/21/19 23:18 Morphine Sulfate 4 Mg Inj Administered 12/21/19 23:19 Dose 4 mg .ROUTE .STK-MED ONE Ondansetron HCl 4 mg 12/21/19 21:59 12/21/19 22:41 Zofran 4 Mg/2 Ml Vial IV 12/21/19 22:00 4 mg STAT ONE Administration Ondansetron HCl Confirm 12/21/19 22:35 Zofran 4 Mg/2 Ml Vial Administered 12/21/19 22:36 Dose 4 mg .ROUTE .STK-MED ONE Potassium Bicarbonate 25 meq 12/21/19 23:29 12/21/19 23:42 K-Lyte 25 Meq PO 12/21/19 23:30 25 meq STAT ONE Administration Potassium Bicarbonate Confirm 12/21/19 23:39 K-Lyte 25 Meq Administered 12/21/19 23:40 Dose 25 meq .ROUTE .STK-MED ONE Lab/Rad Data: Laboratory Result Diagrams 12/21/19 22:30 12/21/19 22:30 Laboratory Results 12/21/19 12/21/19 12/21/19 Range/Units 23:43 22:30 22:30 WBC (4.0-10.5) K/mm3 RBC (4.1-5.4) M/mm3 Hgb (12.0-16.0) gm/dl Hct (35-47) % MCV (78-100) fl MCH (26-32) pg MCHC (32-36) g/dl RDW (11.5-14.0) % Plt Count (150-450) K/mm3 MPV (7.5-11.0) fl Gran % (36.0-66.0) % Eos # (Auto) (0-0.5) Absolute Lymphs (auto) (1.0-4.6) Absolute Monos (auto) (0.0-1.3) Lymphocytes % (24.0-44.0) % Monocytes % (0.0-12.0) % Eosinophils % (0.00-5.0) % Basophils % (0.0-0.4) % Absolute Granulocytes (1.4-6.9) Basophils # (0-0.4) D-Dimer (215-500) ng/mL Sodium (137-145) mmol/L Potassium (3.5-5.1) mmol/L Chloride (98-107) mmol/L Carbon Dioxide (22-30) mmol/L Anion Gap (5-15) MEQ/L BUN (7-17) mg/dL Creatinine (0.52-1.04) mg/dL Estimated GFR ML/MIN Glucose (74-106) mg/dL Lactic Acid (0.4-2.0) Calcium (8.4-10.2) mg/dL Total Bilirubin (0.2-1.3) mg/dL AST (14-36) U/L ALT (0-35) U/L Alkaline Phosphatase (38-126) U/L Troponin I (0.000-0.034) ng/mL NT-Pro-B Natriuret Pep (0-450) pg/mL Serum Total Protein (6.3-8.2) g/dL Albumin (3.5-5.0) g/dL Amylase (30-110) U/L Lipase (23-300) U/L Serum , Qual NEGATIVE (Negative) Urine Color YELLOW (YELLOW) Urine Appearance CLEAR (CLEAR) Urine pH 5.0 (5-6) Ur Specific Keo 1.010 (1.005-1.025) Urine Protein NEGATIVE (Negative) Urine Ketones NEGATIVE (NEGATIVE) Urine Blood LARGE (0-5) Charles/ul Urine Nitrite NEGATIVE (NEGATIVE) Urine Bilirubin NEGATIVE (NEGATIVE) Urine Urobilinogen NEGATIVE (0-1) mg/dL Ur Leukocyte Esterase NEGATIVE (NEGATIVE) Urine WBC (Auto) 0-2 (0-5) /HPF Urine RBC (Auto) 3-5 (0-2) /HPF U Epithel Cells (Auto) NONE (FEW) /HPF Urine Bacteria (Auto) RARE (NEGATIVE) /HPF Urine Culture Reflexed NO (NO) Urine Glucose NEGATIVE (NEGATIVE) mg/dL Influenza Type A Ag NEGATIVE (NEGATIVE) Influenza Type B Ag NEGATIVE (NEGATIVE) RSV (PCR) NEGATIVE (Negative) Group A Strep Antibody NEGATIVE (NEGATIVE) 12/21/19 12/21/19 12/21/19 Range/Units 22:30 22:30 22:30 WBC (4.0-10.5) K/mm3 RBC (4.1-5.4) M/mm3 Hgb (12.0-16.0) gm/dl Hct (35-47) % MCV (78-100) fl MCH (26-32) pg MCHC (32-36) g/dl RDW (11.5-14.0) % Plt Count (150-450) K/mm3 MPV (7.5-11.0) fl Gran % (36.0-66.0) % Eos # (Auto) (0-0.5) Absolute Lymphs (auto) (1.0-4.6) Absolute Monos (auto) (0.0-1.3) Lymphocytes % (24.0-44.0) % Monocytes % (0.0-12.0) % Eosinophils % (0.00-5.0) % Basophils % (0.0-0.4) % Absolute Granulocytes (1.4-6.9) Basophils # (0-0.4) D-Dimer 366 (215-500) ng/mL Sodium 141 (137-145) mmol/L Potassium 3.3 L (3.5-5.1) mmol/L Chloride 106 (98-107) mmol/L Carbon Dioxide 26 (22-30) mmol/L Anion Gap 11.9 (5-15) MEQ/L BUN 13 (7-17) mg/dL Creatinine 0.63 (0.52-1.04) mg/dL Estimated GFR > 60.0 ML/MIN Glucose 86 (74-106) mg/dL Lactic Acid (0.4-2.0) Calcium 9.1 (8.4-10.2) mg/dL Total Bilirubin 0.40 (0.2-1.3) mg/dL AST 26 (14-36) U/L ALT 27 (0-35) U/L Alkaline Phosphatase 81 (38-126) U/L Troponin I < 0.012 (0.000-0.034) ng/mL NT-Pro-B Natriuret Pep 76.9 (0-450) pg/mL Serum Total Protein 8.1 (6.3-8.2) g/dL Albumin 4.3 (3.5-5.0) g/dL Amylase 49 (30-110) U/L Lipase 49 (23-300) U/L Serum , Qual (Negative) Urine Color (YELLOW) Urine Appearance (CLEAR) Urine pH (5-6) Ur Specific Keo (1.005-1.025) Urine Protein (Negative) Urine Ketones (NEGATIVE) Urine Blood (0-5) Charles/ul Urine Nitrite (NEGATIVE) Urine Bilirubin (NEGATIVE) Urine Urobilinogen (0-1) mg/dL Ur Leukocyte Esterase (NEGATIVE) Urine WBC (Auto) (0-5) /HPF Urine RBC (Auto) (0-2) /HPF U Epithel Cells (Auto) (FEW) /HPF Urine Bacteria (Auto) (NEGATIVE) /HPF Urine Culture Reflexed (NO) Urine Glucose (NEGATIVE) mg/dL Influenza Type A Ag (NEGATIVE) Influenza Type B Ag (NEGATIVE) RSV (PCR) (Negative) Group A Strep Antibody (NEGATIVE) 12/21/19 12/21/19 Range/Units 22:30 22:25 WBC 9.5 (4.0-10.5) K/mm3 RBC 4.13 (4.1-5.4) M/mm3 Hgb 13.4 (12.0-16.0) gm/dl Hct 38.8 (35-47) % MCV 93.9 (78-100) fl MCH 32.4 H (26-32) pg MCHC 34.5 (32-36) g/dl RDW 12.2 (11.5-14.0) % Plt Count 262 (150-450) K/mm3 MPV 10.6 (7.5-11.0) fl Gran % 60.6 (36.0-66.0) % Eos # (Auto) 0.64 H (0-0.5) Absolute Lymphs (auto) 2.39 (1.0-4.6) Absolute Monos (auto) 0.65 (0.0-1.3) Lymphocytes % 25.3 (24.0-44.0) % Monocytes % 6.9 (0.0-12.0) % Eosinophils % 6.8 H (0.00-5.0) % Basophils % 0.4 (0.0-0.4) % Absolute Granulocytes 5.73 (1.4-6.9) Basophils # 0.04 (0-0.4) D-Dimer (215-500) ng/mL Sodium (137-145) mmol/L Potassium (3.5-5.1) mmol/L Chloride (98-107) mmol/L Carbon Dioxide (22-30) mmol/L Anion Gap (5-15) MEQ/L BUN (7-17) mg/dL Creatinine (0.52-1.04) mg/dL Estimated GFR ML/MIN Glucose (74-106) mg/dL Lactic Acid 1.1 (0.4-2.0) Calcium (8.4-10.2) mg/dL Total Bilirubin (0.2-1.3) mg/dL AST (14-36) U/L ALT (0-35) U/L Alkaline Phosphatase (38-126) U/L Troponin I (0.000-0.034) ng/mL NT-Pro-B Natriuret Pep (0-450) pg/mL Serum Total Protein (6.3-8.2) g/dL Albumin (3.5-5.0) g/dL Amylase (30-110) U/L Lipase (23-300) U/L Serum , Qual (Negative) Urine Color (YELLOW) Urine Appearance (CLEAR) Urine pH (5-6) Ur Specific Keo (1.005-1.025) Urine Protein (Negative) Urine Ketones (NEGATIVE) Urine Blood (0-5) Charles/ul Urine Nitrite (NEGATIVE) Urine Bilirubin (NEGATIVE) Urine Urobilinogen (0-1) mg/dL Ur Leukocyte Esterase (NEGATIVE) Urine WBC (Auto) (0-5) /HPF Urine RBC (Auto) (0-2) /HPF U Epithel Cells (Auto) (FEW) /HPF Urine Bacteria (Auto) (NEGATIVE) /HPF Urine Culture Reflexed (NO) Urine Glucose (NEGATIVE) mg/dL Influenza Type A Ag (NEGATIVE) Influenza Type B Ag (NEGATIVE) RSV (PCR) (Negative) Group A Strep Antibody (NEGATIVE) - Progress Progress: improved, re-examined Air Movement: good Progress Note: 12/22/19 01:06 discussed risk/benefit of additional ab vs wait and see , and pt prefers to proceed la inview of change in sputum ; symptoms could be bronchiectasis; Blood Culture(s) Obtained: No Antibiotics given: No Counseled pt/family regarding: lab results, diagnosis, need for follow-up, rad results - Departure Departure Disposition: Home Clinical Impression: Microhematuria, Hypokalemia, Asthma, Bloody sputum, symptom consistent with bronchiectasis/, asthma with infectious complications Condition: Good Critical Care Time: No Referrals: AUDELIA MARCELO [Primary Care Provider] - Instructions: Asthma, Adult (DC), Hypokalemia (DC), Shortness of Breath ( Dyspnea) (DC), Blood in the Urine (Hematuria), Adult (DC) Additional Instructions: followup with your DrJazmin to recheck lungs this week- and some time to recheck the urine for blood, and the potassium; return meantime if further shortness of breath , vomiting , chest pain or further concerns; Prescriptions: Amox Tr/Potass Clav. 875 mg [Augmentin 875-125 Tablet] 875 mg PO BID #20 tablet Methylprednisolone Packet [Medrol Dosepack] 4 mg PO UD #30 packet
[2019-12-21] MEDS ORDERED: MORPHINE SULFATE 4 MG INJ IV ONE (23:06)
[2019-12-21] MEDS ORDERED: BENADRYL 50 MG/ML IV ONE (23:06)
[2019-12-21] MEDS ORDERED: MORPHINE SULFATE 4 MG INJ ONE (23:18)
[2019-12-21] MEDS ORDERED: BENADRYL 50 MG/ML ONE (23:18)
[2019-12-21] MEDS ORDERED: POTASSIUM CHLORIDE 20 mEq IN WATER 100ML 20 MEQ/100 ML BAG IV ONE (23:29)
[2019-12-21] MEDS ORDERED: K-LYTE 25 MEQ PO ONE (23:29)
[2019-12-21] MEDS ORDERED: K-LYTE 25 MEQ ONE (23:39)
[2019-12-21] MEDS ORDERED: POTASSIUM CHLORIDE 20 mEq IN WATER 100ML 100 ML IV ONE (23:40)
[2019-12-21 23:44] LABS: INFLUENZA A NEGATIVE (NEGATIVE); INFLUENZA B NEGATIVE (NEGATIVE); RESPIRATORY SYNCTIAL VIRUS NEGATIVE (Negative)
[2019-12-21 23:50] LABS: Appearance CLEAR (CLEAR); Bacteria RARE /HPF (NEGATIVE); Bilirubin NEGATIVE (NEGATIVE); Blood LARGE Ery/ul (0-5); Glucose NEGATIVE (NEGATIVE); Ketones NEGATIVE (NEGATIVE); Leukocyte Esterase NEGATIVE (NEGATIVE); Nitrite NEGATIVE (NEGATIVE); Protein,Urine Dip NEGATIVE (Negative); Urobilinogen NEGATIVE mg/dL (0-1); WBC 0-2 /HPF (0-5)
[2019-12-22] MEDS ORDERED: Augmentin 875-125 Tablet PO ONE (01:13)
[2019-12-22] MEDS ORDERED: Augmentin 875-125 Tablet ONE (01:21)
[2019-12-22 01:25] VITALS: BP 102/66; PULSE 77; O2SAT 97
--- NOTE | 2019-12-22 08:55 | XRAY ---
Indication: Short of breath. Comparison: July 30, 2019. PA/lateral chest again demonstrates normal heart and lungs. Bony thorax intact. No new/acute findings.
== END 2019-12-22 01:25 | disposition home or self-care (01) ==
LOC: ED 21:49
DX: R31.29 Other microscopic hematuria (principal); E87.6 Hypokalemia; J45.909 Unspecified asthma, uncomplicated; R04.2 Hemoptysis; R06.02 Shortness of breath; R05 Cough; R50.9 Fever, unspecified; J02.9 Acute pharyngitis, unspecified; R06.2 Wheezing; Z79.899 Other long term (current) drug therapy; R11.0 Nausea
CPT/HCPCS: 36000; 36415; 71046; 80053; 81001; 81025; 82150; 83605; 83690; 83880; 84484; 85025; 85379; 87631; 87651; 93005; 93041; 94150; 94640; 94760; 96360; 96365; 96374; 96375; 99285; J1200; J2270; J2405; J2930; J3480; A9270-GY

== ENCOUNTER 2020-01-12 20:50 | Emergency (ER) | payer OTHER ==
--- NOTE | 2020-01-12 22:35 | ERPHSYRPT ---
- History of Present Illness Source: travel registered nurse icu Exam Limitations: no limitations Patient Subjective Stated Complaint: pt states she has hbeen having sore throat since . states it now feels like she has a rock in her throat and is swallowing razor blades Triage Nursing Assessment: pt alert and oriented, answers questions approp. pt ambulatoryw ith steady gait noted. respirations nonlabored with lungs cta. skin pink warm and dry. redness noted to throat. Physician History: Is a 29-year-old female who presents with a complaint of sore throat. She saw her primary care physician a few days ago for cold-like symptoms and was swabbed and was negative for the flu has increased cough productive of sputum and increased sore throat. Timing/Duration: day(s) (5), gradual onset Cough Quality/Degree: moderate, productive cough, sputum Possible Cause: occasional episodes Modifying Factors: Improves With: nothing Associated Symptoms: cough, earache International travel in last 2 weeks: No Allergies/Adverse Reactions: meloxicam Allergy (Verified 12/21/19 22:07) sulfamethoxazole [From Bactrim] Allergy (Verified 12/21/19 22:07) Home Medications: Albuterol Sulfate [Proair Hfa] 2 puff IH DAILY PRN PRN 11/11/15 [History] Sertraline HCl 50 mg [Zoloft 50 mg Tablet] 100 mg PO DAILY 08/10/16 [History ] Cyclobenzaprine HCl [Flexeril] 10 mg PO Q8HPRN PRN 06/16/17 [History] Fluticasone/Vilanterol [Breo Ellipta 100-25 Mcg INH] 1 each IH DAILY 06/16/17 [ History] Loratadine 10 mg [Claritin 10 mg] 10 mg PO DAILY 06/16/17 [History] Hx Tetanus, Diphtheria Vaccination/Date Given: Yes Hx Influenza Vaccination/Date Given: No Hx Pneumococcal Vaccination/Date Given: No Immunizations Up to Date: Yes - Review of Systems Constitutional: No Fever, No Chills Eyes: No Symptoms Ears, Nose, & Throat: Ear Pain, Nose Congestion, Nose Discharge, Throat Pain, Hoarse Respiratory: Dyspnea, Wheezing, No Cough Cardiac: No Chest Pain, No Edema, No Syncope Abdominal/Gastrointestinal: No Abdominal Pain, No Nausea, No Vomiting, No Diarrhea Genitourinary Symptoms: No Dysuria Musculoskeletal: No Back Pain, No Neck Pain Skin: No Rash Neurological: No Dizziness, No Focal Weakness, No Sensory Changes Psychological: No Symptoms Endocrine: No Symptoms All Other Systems: Reviewed and Negative - Past Medical History Pertinent Past Medical History: Yes Neurological History: No Pertinent History ENT History: No Pertinent History Cardiac History: No Pertinent History Respiratory History: Asthma Endocrine Medical History: No Pertinent History Musculoskeletal History: Degenerative Disk Disease GI Medical History: No Pertinent History History: No Pertinent History Psycho-Social History: Anxiety, Depression Female Reproductive Disorders: No Pertinent History - Past Surgical History Past Surgical History: Yes Neuro Surgical History: No Pertinent History Cardiac: No Pertinent History Respiratory: No Pertinent History Gastrointestinal: Cholecystectomy Genitourinary: No Pertinent History Musculoskeletal: No Pertinent History Female Surgical History: Section Other Surgical History: CS x3 - Social History Smoking Status: Current every day smoker How long have you smoked: 11yrs Exposure to second hand smoke: Yes Alcohol Use: None Drug Use: none Patient Lives Alone: No Significant Family History: no pertinent family hx - Female History Hx Last Menstrual Period: last month Hx Now: No - Nursing Vital Signs Nursing Vital Signs: Initial Vital Signs Temperature 98.6 F 01/12/20 22:16 Pulse Rate 93 H 01/12/20 22:16 Respiratory Rate 18 01/12/20 22:16 Blood Pressure 132/78 01/12/20 22:16 O2 Sat by Pulse Oximetry 99 01/12/20 22:16 Pain Scale Pain Intensity 9 - Physical Exam General Appearance: no apparent distress, alert Eye Exam: PERRL/EOMI, eyes nml inspection Ears, Nose, Throat Exam: pharynx normal, moist mucous membranes Neck Exam: normal inspection, non-tender, supple, full range of motion Respiratory Exam: rhonchi, wheezing, No respiratory distress Cardiovascular Exam: regular rate/rhythm, normal heart sounds Gastrointestinal/Abdomen Exam: soft, No tenderness Back Exam: normal inspection, No CVA tenderness, No vertebral tenderness Extremity Exam: normal inspection, normal range of motion Neurologic Exam: alert, oriented x 3, cooperative, normal mood/affect, sensation nml, No motor deficits Skin Exam: normal color, warm, dry, No rash Lymphatic Exam: No adenopathy SpO2 Interpretation: normal SpO2: 99 O2 Delivery: Room Air - Course Nursing assessment & vital signs reviewed: Yes - Progress Progress: unchanged Air Movement: good Blood Culture(s) Obtained: No Antibiotics given: Yes - Departure Departure Disposition: Home Clinical Impression: Bronchitis, Pharyngitis Condition: Stable Critical Care Time: No Referrals: AUDELIA MARCELO [Primary Care Provider] - Instructions: Sore Throat, Adult (DC) Prescriptions: Cephalexin Mh 500 mg [Keflex 500 mg] 500 mg PO QID 10 Days #40 capsule
[2020-01-12 23:11] VITALS: BP 120/66; PULSE 71; O2SAT 98
== END 2020-01-12 23:06 | disposition home or self-care (01) ==
LOC: ED 20:50
DX: J40 Bronchitis, not specified as acute or chronic (principal); J02.9 Acute pharyngitis, unspecified
CPT/HCPCS: 87651; 99283

== ENCOUNTER 2020-07-19 21:47 | Emergency (ER) | payer OTHER ==
[2020-07-19] MEDS ORDERED: DECADRON 10MG INJ. IM ONE (22:02)
[2020-07-19] MEDS ORDERED: DUONEB 0.5-3 MG/3 ml Neb IH ONE ×2 (22:02→22:06)
[2020-07-19 22:06] VITALS: PULSE 89
[2020-07-19] MEDS ORDERED: DECADRON 10MG INJ. ONE (22:07)
--- NOTE | 2020-07-19 22:08 | ERPHSYRPT ---
- History of Present Illness Source: patient Physician History: 29 yo wf w cough x 2days/nonproductive/mild dyspnea wo fe calos/coryza/otalgia/N/V/D. Pt has a h/o asthma and smokes 1ppw. Timing/Duration: other (2days) Cough Quality/Degree: dry cough Possible Cause: frequent episodes Modifying Factors: Improves With: coughing Associated Symptoms: cough, shortness of breath, No fever, No chills, No chest pain/soreness, No dizziness, No earache, No facial pain, No headache, No lightheadedness, No muscle aches, No nasal congestion, No nasal drainage, No sinus infection, No sore throat, No wheezing Allergies/Adverse Reactions: meloxicam Allergy (Verified 07/19/20 22:07) sulfamethoxazole [From Bactrim] Allergy (Verified 07/19/20 22:07) Home Medications: Albuterol Sulfate [Proair Hfa] 2 puff IH DAILY PRN PRN 11/11/15 [History] Fluticasone/Vilanterol [Breo Ellipta 100-25 Mcg INH] 1 each IH DAILY 06/16/17 [History] Loratadine 10 mg [Claritin 10 mg] 10 mg PO DAILY 06/16/17 [History] Hx Tetanus, Diphtheria Vaccination/Date Given: Yes Hx Influenza Vaccination/Date Given: No Hx Pneumococcal Vaccination/Date Given: No Travel Risk - International Travel Have you traveled outside of the country in past 3 weeks: Yes - Coronavirus Screening Symptoms: Cough: New Onset, Shortness of Breath - Review of Systems Constitutional: No Fever, No Chills, No Fatigue, No Lethargy, No Malaise, No Night Sweats, No Weakness, No Weight Loss Eyes: No Symptoms Ears, Nose, & Throat: No Symptoms Respiratory: Cough Cardiac: No Symptoms Abdominal/Gastrointestinal: No Symptoms Genitourinary Symptoms: No Symptoms Musculoskeletal: No Symptoms Skin: No Symptoms Neurological: No Symptoms Psychological: No Symptoms Endocrine: No Symptoms Hematologic/Lymphatic: No Symptoms Immunological/Allergic: No Symptoms - Past Medical History Pertinent Past Medical History: Yes Neurological History: No Pertinent History ENT History: No Pertinent History Cardiac History: No Pertinent History Respiratory History: Asthma Endocrine Medical History: No Pertinent History Musculoskeletal History: Degenerative Disk Disease GI Medical History: No Pertinent History History: No Pertinent History Psycho-Social History: Anxiety, Depression Female Reproductive Disorders: No Pertinent History - Past Surgical History Past Surgical History: Yes Neuro Surgical History: No Pertinent History Cardiac: No Pertinent History Respiratory: No Pertinent History Gastrointestinal: Cholecystectomy Genitourinary: No Pertinent History Musculoskeletal: No Pertinent History Female Surgical History: Section Other Surgical History: CS x3 - Social History Smoking Status: Current every day smoker How long have you smoked: 11yrs Exposure to second hand smoke: Yes Alcohol Use: None Drug Use: none Patient Lives Alone: No Significant Family History: no pertinent family hx - Nursing Vital Signs Nursing Vital Signs: Initial Vital Signs Temperature 98.1 F 07/19/20 21:57 Pulse Rate 89 07/19/20 21:57 Respiratory Rate 18 07/19/20 21:57 Blood Pressure 136/98 07/19/20 21:57 O2 Sat by Pulse Oximetry 98 07/19/20 21:57 Pain Scale Pain Intensity 3 - Physical Exam General Appearance: no apparent distress Eye Exam: PERRL/EOMI, eyes nml inspection Ears, Nose, Throat Exam: normal ENT inspection, TMs normal, pharynx normal, moist mucous membranes Neck Exam: normal inspection, non-tender, supple, full range of motion, No meningismus, No mass, No Brudzinski, No Kernig's Respiratory Exam: airway intact, wheezing (Scattered wheezes B w good air movement), No respiratory distress Cardiovascular Exam: regular rate/rhythm, normal heart sounds, normal peripheral pulses Gastrointestinal/Abdomen Exam: soft, normal bowel sounds Pelvic Exam: not done Back Exam: normal inspection, normal range of motion Extremity Exam: normal inspection, normal range of motion, No pedal edema, No swelling Neurologic Exam: alert, oriented x 3, cooperative, greeter guest services II-XII nml as tested, normal mood/affect Skin Exam: normal color, warm, dry, No rash Lymphatic Exam: No adenopathy SpO2 Interpretation: normal SpO2: 98 O2 Delivery: Room Air Ordered Tests: Active Orders 24 hr Category Date Time Status Peak Expiratory Flow Rate ONCE RT 07/19/20 22:11 Active Respiratory Therapy Assessment DAILY RT 07/19/20 22:11 Active Medication Summary Discontinued Medications Generic Name Dose Route Start Last Admin Trade Name Freq PRN Reason Stop Dose Admin Albuterol/Ipratropium 3 ml 07/19/20 22:02 07/19/20 22:08 Duoneb 0.5-3 Mg/3 Ml Neb IH 07/19/20 22:03 3 ml STAT ONE Administration Albuterol/Ipratropium Confirm 07/19/20 22:06 Duoneb 0.5-3 Mg/3 Ml Neb Administered 07/19/20 22:07 Dose 3 ml IH .STK-MED ONE Dexamethasone Sodium Phosphate 10 mg 07/19/20 22:02 07/19/20 22:10 Decadron 10mg Inj. IM 07/19/20 22:03 10 mg STAT ONE Administration Dexamethasone Sodium Phosphate Confirm 07/19/20 22:07 Decadron 10mg Inj. Administered 07/19/20 22:08 Dose 10 mg .ROUTE .STK-MED ONE - Progress Air Movement: good Progress Note: 07/19/20 22:23 Wheezing decreased w Duoneb x1 10mg IM Decadron Counseled pt/family regarding: diagnosis, need for follow-up - Departure Departure Disposition: Home Clinical Impression: Reactive airway disease Condition: Stable Critical Care Time: No Referrals: AUDELIA MARCELO [Primary Care Provider] - Instructions: Asthma in Adults, Asthma, Adult (DC) Additional Instructions: Quit smoking Follow up with family MD in 1-2 days Prednisone twice a day for 3 days Return to ER for worsening cough/temperature greater than 100.5/Increasing shortness of breath Prescriptions: Prednisone 10 mg PO BID 3 Days #6 tablet
[2020-07-19 22:39] VITALS: BP 110/65; O2SAT 100
== END 2020-07-19 22:36 | disposition home or self-care (01) ==
LOC: ED 21:47
DX: J45.909 Unspecified asthma, uncomplicated (principal); Z72.0 Tobacco use
CPT/HCPCS: 94150; 94640; 96372; 99283; J1100; A9270-GY

== ENCOUNTER 2020-07-22 16:19 | Emergency (ER) | payer OTHER ==
[2020-07-22] MEDS ORDERED: XYLOCAINE 1% HCL 20 ML MDV IJ ONE (16:20)
--- NOTE | 2020-07-22 16:25 | ERPHSYRPT ---
- History of Present Illness Time Seen by Provider: 07/22/20 16:25 Source: patient Exam Limitations: no limitations Physician History: This is a 29-year-old overweight white female who has a history of asthma and continues to smoke cigarettes and presents with 3 to 4-day history of coughing. Patient was seen in this emergency department on 07/19/2020 with coughing symptoms. She was diagnosed with reactive airway disease and was given a steroid pack. She continues to cough and the cough is productive with "brown" sputum. She denies fever. Timing/Duration: day(s) (4 to 5) Cough Quality/Degree: moderate, productive cough Possible Cause: occasional episodes Modifying Factors: Improves With: albuterol inhaler, coughing Associated Symptoms: cough, No fever, No chills, No chest pain/soreness, No shortness of breath Allergies/Adverse Reactions: meloxicam Allergy (Verified 07/19/20 22:07) sulfamethoxazole [From Bactrim] Allergy (Verified 07/19/20 22:07) Home Medications: Albuterol Sulfate [Proair Hfa] 2 puff IH DAILY PRN PRN 11/11/15 [History] Fluticasone/Vilanterol [Breo Ellipta 100-25 Mcg INH] 1 each IH DAILY 06/16/17 [History] Loratadine 10 mg [Claritin 10 mg] 10 mg PO DAILY 06/16/17 [History] Hx Tetanus, Diphtheria Vaccination/Date Given: Yes Hx Influenza Vaccination/Date Given: Yes Hx Pneumococcal Vaccination/Date Given: No Travel Risk - International Travel Have you traveled outside of the country in past 3 weeks: No - Coronavirus Screening Are you exhibiting any of the following symptoms?: No Close contact with a COVID-19 positive Pt in past 14-21 Days: No - Review of Systems Constitutional: No Symptoms Eyes: No Symptoms Ears, Nose, & Throat: No Symptoms Respiratory: Cough Cardiac: No Symptoms Abdominal/Gastrointestinal: No Symptoms Genitourinary Symptoms: No Symptoms Musculoskeletal: No Symptoms Skin: No Symptoms Neurological: No Symptoms Psychological: No Symptoms Endocrine: No Symptoms Hematologic/Lymphatic: No Symptoms Immunological/Allergic: No Symptoms All Other Systems: Reviewed and Negative - Past Medical History Pertinent Past Medical History: Yes Neurological History: No Pertinent History ENT History: No Pertinent History Cardiac History: No Pertinent History Respiratory History: Asthma Endocrine Medical History: No Pertinent History Musculoskeletal History: Degenerative Disk Disease GI Medical History: No Pertinent History History: No Pertinent History Psycho-Social History: Anxiety, Depression Female Reproductive Disorders: No Pertinent History - Past Surgical History Past Surgical History: Yes Neuro Surgical History: No Pertinent History Cardiac: No Pertinent History Respiratory: No Pertinent History Gastrointestinal: Cholecystectomy Genitourinary: No Pertinent History Musculoskeletal: No Pertinent History Female Surgical History: Section Other Surgical History: CS x3 - Social History Smoking Status: Current every day smoker How long have you smoked: 11yrs Exposure to second hand smoke: Yes Alcohol Use: None Drug Use: none Patient Lives Alone: No Significant Family History: no pertinent family hx - Nursing Vital Signs Nursing Vital Signs: Initial Vital Signs Temperature 98.4 F 07/22/20 16:40 Pulse Rate 77 07/22/20 16:40 Respiratory Rate 22 07/22/20 16:40 Blood Pressure 118/83 07/22/20 16:40 O2 Sat by Pulse Oximetry 99 07/22/20 16:40 Pain Scale Pain Intensity 0 - Physical Exam General Appearance: no apparent distress, alert, anxiety Eye Exam: PERRL/EOMI, eyes nml inspection Ears, Nose, Throat Exam: normal ENT inspection, moist mucous membranes Neck Exam: normal inspection, non-tender, supple, full range of motion Respiratory Exam: wheezing, No chest tenderness, No lungs clear, No respiratory distress Cardiovascular Exam: regular rate/rhythm (Mild bilateral expiratory wheezing) Gastrointestinal/Abdomen Exam: soft, normal bowel sounds, No tenderness Pelvic Exam: not done Rectal Exam: not done Back Exam: normal inspection, normal range of motion, No CVA tenderness Extremity Exam: normal inspection, normal range of motion, pelvis stable Neurologic Exam: alert, oriented x 3, cooperative, material handling supervisor II-XII nml as tested, nml cerebellar function, nml station & gait, sensation nml Skin Exam: normal color, warm, dry Lymphatic Exam: No adenopathy SpO2 Interpretation: normal O2 Delivery: Room Air - Course Nursing assessment & vital signs reviewed: Yes Ordered Tests: Medication Summary Discontinued Medications Generic Name Dose Route Start Last Admin Trade Name Freq PRN Reason Stop Dose Admin Ceftriaxone Sodium 1,000 mg 07/22/20 17:30 Rocephin 1000 Mg Inj IM 07/22/20 17:31 STAT ONE Methylprednisolone Sodium Succinate 125 mg 07/22/20 17:30 Solu-Medrol 125 Mg IM 07/22/20 17:31 STAT ONE - Progress Progress: improved Air Movement: good Progress Note: 07/22/20 17:35 Medical decision making: I offered a chest x-ray on this patient. Patient prefers not to have an x-ray if not absolutely necessary. I will be treating her for pneumonia and bronchitis. I think this is a reasonable approach and not perform an x-ray of her chest. Blood Culture(s) Obtained: No Antibiotics given: Yes Counseled pt/family regarding: diagnosis, need for follow-up, smoking cessation - Departure Departure Disposition: Home Clinical Impression: Upper respiratory infection, Bronchitis Condition: Stable Critical Care Time: No Referrals: AUDELIA MARCELO [Primary Care Provider] - Prescriptions: Prednisone 10 mg [Deltasone 10 mg] 10 mg PO TID #12 tablet Benzonatate [Tessalon Perle] 200 mg PO TID #12 capsule Azithromycin 250 mg [Zithromax 250 MG TABLET] 250 mg PO ZPACK #6 tablet
[2020-07-22 17:23] VITALS: O2SAT 98
[2020-07-22] MEDS ORDERED: solu-MEDROL 125 MG IM ONE (17:30)
[2020-07-22] MEDS ORDERED: Rocephin 1000 MG INJ IM ONE (17:30)
[2020-07-22] MEDS ORDERED: solu-MEDROL 125 MG ONE (17:36)
[2020-07-22] MEDS ORDERED: Rocephin 1000 MG INJ ONE (17:36)
[2020-07-22 17:58] VITALS: BP 120/78; PULSE 76
== END 2020-07-22 18:07 | disposition home or self-care (01) ==
LOC: ED 16:19
DX: J06.9 Acute upper respiratory infection, unspecified (principal); J40 Bronchitis, not specified as acute or chronic; J45.909 Unspecified asthma, uncomplicated; Z72.0 Tobacco use
CPT/HCPCS: 96372; 99284; J0696; J2930

== ENCOUNTER 2020-11-16 16:39 | Emergency (ER) | payer OTHER ==
--- NOTE | 2020-11-16 16:55 | ERPHSYRPT ---
- History of Present Illness Time Seen by Provider: 11/16/20 16:55 Source: patient Exam Limitations: no limitations Physician History: This is a 30-year-old white female who presents with a couple day history of right lower eyelid pain and redness. She also states that today she noticed her right ear hurting as well as sore throat on the right side. She denies fever. She denies cough. She denies myalgias and arthralgias. She has no known exposures to anyone that she knows of that is COVID-19 positive. Timing/Duration: this morning Severity: mild ENT Location: ear (R) Prearrival Treatment: no prearrival treatment Associated Symptoms: ear pain (R), sore throat (mild on right side), No fever, No chills, No headache Allergies/Adverse Reactions: meloxicam Allergy (Verified 11/16/20 17:12) sulfamethoxazole [From Bactrim] Allergy (Verified 11/16/20 17:12) Home Medications: Albuterol Sulfate [Proair Hfa] 2 puff IH DAILY PRN PRN 11/11/15 [History] Fluticasone/Vilanterol [Breo Ellipta 100-25 Mcg INH] 1 each IH DAILY 06/16/17 [History] Loratadine 10 mg [Claritin 10 mg] 10 mg PO DAILY 06/16/17 [History] Hx Tetanus, Diphtheria Vaccination/Date Given: Yes Hx Influenza Vaccination/Date Given: Yes Hx Pneumococcal Vaccination/Date Given: No Travel Risk - International Travel Have you traveled outside of the country in past 3 weeks: No - Coronavirus Screening Are you exhibiting any of the following symptoms?: No Close contact with a COVID-19 positive Pt in past 14-21 Days: No - Review of Systems Constitutional: No Symptoms Eyes: No Symptoms Ears, Nose, & Throat: Ear Pain (Right), Throat Pain (Mild, right side) Respiratory: No Symptoms Cardiac: No Symptoms Abdominal/Gastrointestinal: No Symptoms Genitourinary Symptoms: No Symptoms Musculoskeletal: No Symptoms Skin: No Symptoms Neurological: No Symptoms Psychological: No Symptoms Endocrine: No Symptoms Hematologic/Lymphatic: No Symptoms Immunological/Allergic: No Symptoms All Other Systems: Reviewed and Negative - Past Medical History Pertinent Past Medical History: Yes Neurological History: No Pertinent History ENT History: No Pertinent History Cardiac History: No Pertinent History Respiratory History: Asthma Endocrine Medical History: No Pertinent History Musculoskeletal History: Degenerative Disk Disease GI Medical History: No Pertinent History History: No Pertinent History Psycho-Social History: Anxiety, Depression Female Reproductive Disorders: No Pertinent History - Past Surgical History Past Surgical History: Yes Neuro Surgical History: No Pertinent History Cardiac: No Pertinent History Respiratory: No Pertinent History Gastrointestinal: Cholecystectomy Genitourinary: No Pertinent History Musculoskeletal: No Pertinent History Female Surgical History: Section Other Surgical History: CS x3 - Social History Smoking Status: Current every day smoker How long have you smoked: 11yrs Exposure to second hand smoke: Yes Alcohol Use: None Drug Use: none Patient Lives Alone: No Significant Family History: no pertinent family hx - Nursing Vital Signs Nursing Vital Signs: Initial Vital Signs Pulse Rate 74 11/16/20 17:14 Respiratory Rate 18 11/16/20 17:14 Blood Pressure 137/62 11/16/20 17:14 O2 Sat by Pulse Oximetry 100 11/16/20 17:14 Pain Scale Pain Intensity 5 - Physical Exam General Appearance: no apparent distress, alert, anxiety Eye Exam: right eye: other (Mild redness right lower eye lid. No stye appreciated), left eye: normal inspection, bilateral eye: PERRL, EOMI Ear Exam: right ear: erythema, swelling, tenderness, TM dull, left ear: canal normal, TM normal, bilateral ear: auricle normal Nasal Exam: normal inspection Throat Exam: normal, pharynx normal Neck Exam: normal inspection, non-tender, supple, full range of motion, trachea midline Cardiovascular/Respiratory Exam: chest non-tender, no respiratory distress Abdominal Exam: non-tender Neurologic Exam: alert, oriented x 3, cooperative, forms builder II-XII nml as tested, normal mood/affect, nml cerebellar function, nml station & gait, sensation nml Skin Exam: normal color, warm, dry SpO2 Interpretation: normal O2 Delivery: Room Air - Course Nursing assessment & vital signs reviewed: Yes Ordered Tests: Medication Summary Discontinued Medications Generic Name Dose Route Start Last Admin Trade Name Freq PRN Reason Stop Dose Admin Cephalexin HCl Confirm 11/16/20 17:17 Keflex 500 Mg Administered 11/16/20 17:18 Dose 500 mg .ROUTE .STK-MED ONE - Progress Progress: pain not gone completely, re-examined Counseled pt/family regarding: diagnosis, need for follow-up - Departure Departure Disposition: Home Clinical Impression: Right otitis media Condition: Stable Critical Care Time: No Referrals: AUDELIA MARCELO [Primary Care Provider] - Additional Instructions: Drink plenty of fluids. Take medication as prescribed. Use Tylenol and ibuprofen for pain control and fever control. Follow-up with your primary care physician if symptoms persist or worsen.
[2020-11-16] MEDS ORDERED: KEFLEX 500 MG ONE (17:17)
[2020-11-16 17:21] VITALS: BP 137/62; PULSE 74; O2SAT 100
[2020-11-16] MEDS ORDERED: KEFLEX 500 MG PO ONE (17:25)
== END 2020-11-16 17:39 | disposition home or self-care (01) ==
LOC: ED 16:39
DX: H66.91 Otitis media, unspecified, right ear (principal)
CPT/HCPCS: 99283; A9270-GY

== ENCOUNTER 2021-05-25 21:21 | Emergency (ER) | payer OTHER ==
[2021-05-25 21:41] VITALS: O2SAT 100
--- NOTE | 2021-05-25 21:56 | ERPHSYRPT ---
- History of Present Illness Time Seen by Provider: 05/25/21 21:35 Source: patient Exam Limitations: no limitations Patient Subjective Stated Complaint: pt states "I have a rash on my feet that won't heal." Triage Nursing Assessment: pt ambulated into the er; pt is axo x4; c/o rash to milla feet; pt states that she has had the rash for the past 3 day and will not heal; pt states she has had applies cream and is not healing; pt states that she had lost her voice 3 days ago; pt is speaking clearly; pt states that her feet and ankle swell at night time; vitals wnl Physician History: Patient is a 30-year-old female presents to our ED with complaints of a rash to her forefoot primarily around the bases of her toes. The skin is dry and somewhat scaly. No open draining lesions. No cellulitis. No lymphangitis. No fever. Patient also states she is currently recovering from laryngitis. Patient states her voice was hoarse a few days ago however now it mobilizing. Symptoms are mild to moderate in intensity. No specific worsening improving factors. Patient states is otherwise healthy. Patient vitals are essentially within normal limits. Significant other at bedside. They voiced no other complaints concerns at this time. Timing/Duration: day(s) (Days ago.) Severity: moderate Modifying Factors: Improves With: nothing Associated Symptoms: denies symptoms Allergies/Adverse Reactions: meloxicam Allergy (Verified 05/25/21 21:28) sulfamethoxazole [From Bactrim] Allergy (Verified 05/25/21 21:28) Home Medications: Albuterol Sulfate [Proair Hfa] 2 puff IH DAILY PRN PRN 11/11/15 [History] Fluticasone/Vilanterol [Breo Ellipta 100-25 Mcg INH] 1 each IH DAILY 06/16/17 [History] Loratadine 10 mg [Claritin 10 mg] 10 mg PO DAILY 06/16/17 [History] Hx Tetanus, Diphtheria Vaccination/Date Given: No Hx Influenza Vaccination/Date Given: No Hx Pneumococcal Vaccination/Date Given: No Travel Risk - International Travel Have you traveled outside of the country in past 3 weeks: No - Coronavirus Screening Are you exhibiting any of the following symptoms?: No Close contact with a COVID-19 positive Pt in past 14-21 Days: No - Vaccine Status Have you recieved a Covid-19 vaccination: No - Review of Systems Constitutional: No Symptoms, No Fever, No Chills Eyes: No Symptoms Ears, Nose, & Throat: No Symptoms Respiratory: No Symptoms, No Cough, No Dyspnea Cardiac: No Symptoms, No Chest Pain, No Edema, No Syncope Abdominal/Gastrointestinal: No Symptoms, No Abdominal Pain, No Nausea, No Vomiting, No Diarrhea Genitourinary Symptoms: No Symptoms, No Dysuria Musculoskeletal: No Symptoms, No Back Pain, No Neck Pain Skin: No Symptoms, No Rash Neurological: No Symptoms, No Dizziness, No Focal Weakness, No Sensory Changes Psychological: No Symptoms Endocrine: No Symptoms Hematologic/Lymphatic: No Symptoms Immunological/Allergic: No Symptoms All Other Systems: Reviewed and Negative - Past Medical History Pertinent Past Medical History: Yes Neurological History: No Pertinent History ENT History: No Pertinent History Cardiac History: No Pertinent History Respiratory History: Asthma Endocrine Medical History: No Pertinent History Musculoskeletal History: Degenerative Disk Disease GI Medical History: No Pertinent History History: No Pertinent History Psycho-Social History: Anxiety, Depression Female Reproductive Disorders: No Pertinent History - Past Surgical History Past Surgical History: Yes Neuro Surgical History: No Pertinent History Cardiac: No Pertinent History Respiratory: No Pertinent History Gastrointestinal: Cholecystectomy Genitourinary: No Pertinent History Musculoskeletal: No Pertinent History Female Surgical History: Section Other Surgical History: CS x3 - Social History Smoking Status: Current every day smoker How long have you smoked: 11yrs Exposure to second hand smoke: Yes Alcohol Use: None Drug Use: none Patient Lives Alone: No Significant Family History: no pertinent family hx - Female History Hx Now: No - Nursing Vital Signs Nursing Vital Signs: Initial Vital Signs Temperature 97 F 05/25/21 21:29 Pulse Rate 90 05/25/21 21:29 Respiratory Rate 18 05/25/21 21:29 Blood Pressure 136/60 05/25/21 21:29 O2 Sat by Pulse Oximetry 100 05/25/21 21:29 Pain Scale Pain Intensity 4 - Physical Exam General Appearance: no apparent distress, alert Eye Exam: PERRL/EOMI, eyes nml inspection Ears, Nose, Throat Exam: normal ENT inspection, TMs normal, pharynx normal, moist mucous membranes Neck Exam: normal inspection, non-tender, supple, full range of motion Respiratory Exam: normal breath sounds, lungs clear, No respiratory distress Cardiovascular Exam: regular rate/rhythm, normal heart sounds, normal peripheral pulses Gastrointestinal/Abdomen Exam: soft, normal bowel sounds, No tenderness, No mass Back Exam: normal inspection, normal range of motion, No CVA tenderness, No vertebral tenderness Extremity Exam: normal inspection, normal range of motion, pelvis stable Neurologic Exam: alert, oriented x 3, cooperative, normal mood/affect, sensation nml, No motor deficits Skin Exam: normal color, warm, dry, other (Patient has dry skin between and around the base of her toes of both feet. No open or draining lesions. Extremities neurovascular intact distally. No edema. Compartments are soft. Cap refill less than 2 seconds. Pulses are palpable. The rash appears to be tinea pedis.), No rash Lymphatic Exam: No adenopathy SpO2 Interpretation: normal SpO2: 100 O2 Delivery: Room Air - Course Nursing assessment & vital signs reviewed: Yes - Progress Progress: unchanged, improved Progress Note: It appears to have tinea pedis. We do not have clotrimazole or any equivalent fungal cream in our ED. We will refer patient to podiatry for further evaluation and treatment. Plan of care discussed with patient. She agrees to follow-up as discussed. Patient voiced no other complaints or concerns at this time. 05/25/21 21:56 Counseled pt/family regarding: diagnosis, need for follow-up - Departure Departure Disposition: Home Clinical Impression: Tinea pedis Condition: Stable Critical Care Time: No Referrals: AUDELIA MARCELO [Primary Care Provider] - HILARIO VELAZQUEZ [PODIATRY STAFF] - Additional Instructions: Discharge/Care Plan ISAIAS HARIS was seen on 05/25/21 in the Emergency Room. The patient was counseled regarding Diagnosis,Lab results, Imaging studies, need for follow up and when to return to the Emergency Room. Prescriptions given: Discharge Note I have spoken with the patient and/or caregivers. I have explained the patient's condition, diagnosis and treatment plan based on the information available to me at this time. I have answered the patient's and/or caregiver's questions and addressed any concerns. The patient and/or caregivers have as good understanding of the patient's diagnosis, condition and treatment plan as can be expected at this point. The vital signs have been stable. The patient's condition is stable and appropriate for discharge from the emergency department. The patient will pursue further outpatient evaluation with the primary care physician or other designated or consulting physician as outlined in the discharge instructions. The patient and/or caregivers are agreeable to this plan of care and follow-up instructions have been explained in detail. The patient and/or caregivers have received these instruction. The patient/and or caregivers are aware that any significant change in condition or worsening of symptoms should prompt an immediate return to this or the closest emergency department or call 911.
[2021-05-25 22:02] VITALS: BP 91/65; PULSE 71
== END 2021-05-25 22:06 | disposition home or self-care (01) ==
LOC: ED 21:21
DX: B35.3 Tinea pedis (principal)
CPT/HCPCS: 99283

== ENCOUNTER 2021-08-29 17:24 | Emergency (ER) | payer OTHER ==
--- NOTE | 2021-08-29 17:39 | ERPHSYRPT ---
- History of Present Illness Time Seen by Provider: 08/29/21 17:34 Source: patient Exam Limitations: no limitations Physician History: This is a 30-year-old white female patient of Dr. Yu who presents with nausea vomiting and chest tightness 24 hours after receiving her first dose of [place] COVID-19 vaccine. Patient did have a positive COVID-19 test back in July 2020. Patient was smoking up until today. However, she states that she is quitting today because it hurts too much in her chest when breathing in deeply. Patient states that she had a few episodes of vomiting between 4:00 and 750 this morning. Since then she has been able to hold down food and liquids orally. Timing/Duration: today, worse Severity of Dyspnea-Max: mild Severity of Dyspnea-Current: mild Possible Cause: no prior episodes Modifying Factors: Improves With: coughing, deep breath Associated Symptoms: anxiety, cough, chest pain/discomfort Allergies/Adverse Reactions: meloxicam Allergy (Verified 05/25/21 21:28) sulfamethoxazole [From Bactrim] Allergy (Verified 05/25/21 21:28) Home Medications: Albuterol Sulfate [Proair Hfa] 2 puff IH DAILY PRN PRN 11/11/15 [History] Hx Tetanus, Diphtheria Vaccination/Date Given: No Hx Influenza Vaccination/Date Given: No Hx Pneumococcal Vaccination/Date Given: No Travel Risk - International Travel Have you traveled outside of the country in past 3 weeks: No - Coronavirus Screening Are you exhibiting any of the following symptoms?: No - Vaccine Status Have you recieved a Covid-19 vaccination: No - Review of Systems Constitutional: No Symptoms Eyes: No Symptoms Ears, Nose, & Throat: No Symptoms Respiratory: Cough, Dyspnea Cardiac: Chest Pain (Mild mild with deep inspiration) Abdominal/Gastrointestinal: Nausea, Vomiting (Earlier this morning none since this morning) Genitourinary Symptoms: No Symptoms Musculoskeletal: No Symptoms Skin: No Symptoms Neurological: No Symptoms Psychological: No Symptoms Endocrine: No Symptoms Hematologic/Lymphatic: No Symptoms Immunological/Allergic: No Symptoms All Other Systems: Reviewed and Negative - Past Medical History Pertinent Past Medical History: Yes Neurological History: No Pertinent History ENT History: No Pertinent History Cardiac History: No Pertinent History Respiratory History: Asthma Endocrine Medical History: No Pertinent History Musculoskeletal History: Degenerative Disk Disease GI Medical History: No Pertinent History History: No Pertinent History Psycho-Social History: Anxiety, Depression Female Reproductive Disorders: No Pertinent History - Past Surgical History Past Surgical History: Yes Neuro Surgical History: No Pertinent History Cardiac: No Pertinent History Respiratory: No Pertinent History Gastrointestinal: Cholecystectomy Genitourinary: No Pertinent History Musculoskeletal: No Pertinent History Female Surgical History: Section Other Surgical History: CS x3 - Social History Smoking Status: Current every day smoker How long have you smoked: 11yrs Exposure to second hand smoke: Yes Alcohol Use: None Drug Use: none Patient Lives Alone: No Significant Family History: no pertinent family hx - Nursing Vital Signs Nursing Vital Signs: Initial Vital Signs Temperature 97.9 F 08/29/21 17:27 Pulse Rate 102 H 08/29/21 17:27 Respiratory Rate 22 08/29/21 17:27 Blood Pressure 133/91 08/29/21 17:27 O2 Sat by Pulse Oximetry 100 08/29/21 17:27 Pain Scale Pain Intensity 8 - Physical Exam General Appearance: no apparent distress, alert, anxiety, obese Eye Exam: PERRL/EOMI, eyes nml inspection Ears, Nose, Throat Exam: hearing grossly normal, normal ENT inspection, normal pharynx Neck Exam: normal inspection, non-tender, supple, full range of motion Respiratory Exam: normal breath sounds, chest tenderness, lungs clear, airway intact, No respiratory distress Cardiovascular/Chest Exam: normal heart sounds, regular rate/rhythm, normal peripheral pulses Abdominal/Gastrointestinal Exam: soft, normal bowel sounds, No tenderness Rectal Exam: not done Extremity Exam: non-tender, normal range of motion, normal inspection Neurologic Exam: alert, oriented x 3, cooperative, teacher emotionally impaired II-XII nml as tested, normal mood/affect, nml cerebellar function, nml station & gait, sensation nml Skin Exam: normal color, warm, dry Lymphatic Exam: No adenopathy SpO2 Interpretation: normal O2 Delivery: Room Air - Course Nursing assessment & vital signs reviewed: Yes EKG Interpreted by Me: RATE (91), Sinus Rhythm, NORMAL AXIS, NORMAL INTERVALS, NORMAL QRS, NORMAL ST-T, Other (No acute ischemic changes on today's EKG. No change from comparison EKG dated 10/12/2020) Ordered Tests: Active Orders 24 hr Category Date Time Status EKG-ER Only STAT Care 08/29/21 17:39 Active Pulse Oximetry (ED) STAT Care 08/29/21 17:39 Active CHEST 1 VIEW (PORTABLE) Stat Exams 08/29/21 17:39 Taken BLOOD CULTURE Stat Lab 08/29/21 17:57 Received CBC W DIFF Stat Lab 08/29/21 17:57 Completed CMP Stat Lab 08/29/21 17:57 Completed D-DIMER QUANTITATIVE Stat Lab 08/29/21 17:57 Completed INFLUENZA A+B GAEL Stat Lab 08/29/21 17:53 Completed TROPONIN Q3H Lab 08/29/21 17:57 Completed TROPONIN Q3H Lab 08/29/21 20:45 Ordered TROPONIN Q3H Lab 08/29/21 23:45 Ordered TROPONIN Q3H Lab 08/30/21 02:45 Ordered TROPONIN Q3H Lab 08/30/21 05:45 Ordered UA W/RFX UR CULTURE Stat Lab 08/29/21 17:50 Completed Medication Summary Discontinued Medications Generic Name Dose Route Start Last Admin Trade Name Freq PRN Reason Stop Dose Admin Ondansetron HCl 4 mg 08/29/21 17:41 08/29/21 17:43 Zofran 4 Mg/Udtablet Orally Disintegrating PO 08/29/21 17:42 4 mg STAT ONE Administration Ondansetron HCl Confirm 08/29/21 17:43 Zofran 4 Mg/Udtablet Orally Disintegrating Administered 08/29/21 17:44 Dose 4 mg .ROUTE .STK-MED ONE Lab/Rad Data: Laboratory Result Diagrams 08/29/21 17:57 08/29/21 17:57 Laboratory Results 08/29/21 08/29/21 08/29/21 Range/Units 17:57 17:57 17:57 WBC (4.0-10.5) K/mm3 RBC (4.1-5.4) M/mm3 Hgb (12.0-16.0) gm/dl Hct (35-47) % MCV (78-100) fl MCH (26-32) pg MCHC (32-36) g/dl RDW (11.5-14.0) % Plt Count (150-450) K/mm3 MPV (7.5-11.0) fl Gran % (36.0-66.0) % Eos # (Auto) (0-0.5) Absolute Lymphs (auto) (1.0-4.6) Absolute Monos (auto) (0.0-1.3) Lymphocytes % (24.0-44.0) % Monocytes % (0.0-12.0) % Eosinophils % (0.00-5.0) % Basophils % (0.0-0.4) % Absolute Granulocytes (1.4-6.9) Basophils # (0-0.4) D-Dimer 479 (215-500) ng/mL Sodium 137 (137-145) mmol/L Potassium 3.8 (3.5-5.1) mmol/L Chloride 105 (98-107) mmol/L Carbon Dioxide 20 L (22-30) mmol/L Anion Gap 15.8 H (5-15) MEQ/L BUN 9 (7-17) mg/dL Creatinine 0.58 (0.52-1.04) mg/dL Estimated GFR > 60.0 ML/MIN Glucose 93 (74-106) mg/dL Calcium 9.5 (8.4-10.2) mg/dL Total Bilirubin 0.80 (0.2-1.3) mg/dL AST 22 (14-36) U/L ALT 23 (0-35) U/L Alkaline Phosphatase 91 (38-126) U/L Troponin I < 0.012 (0.000-0.034) ng/mL Serum Total Protein 8.0 (6.3-8.2) g/dL Albumin 4.5 (3.5-5.0) g/dL Urine Color (YELLOW) Urine Appearance (CLEAR) Urine pH (5-6) Ur Specific Wayne (1.005-1.025) Urine Protein (Negative) Urine Ketones (NEGATIVE) Urine Blood (0-5) Charles/ul Urine Nitrite (NEGATIVE) Urine Bilirubin (NEGATIVE) Urine Urobilinogen (0-1) mg/dL Ur Leukocyte Esterase (NEGATIVE) Urine WBC (Auto) (0-5) /HPF Urine RBC (Auto) (0-2) /HPF U Epithel Cells (Auto) (FEW) /HPF Urine Bacteria (Auto) (NEGATIVE) /HPF Urine Mucus (Auto) (NEGATIVE) /HPF Urine Culture Reflexed (NO) Urine Glucose (NEGATIVE) mg/dL Influenza Type A Ag (NEGATIVE) Influenza Type B Ag (NEGATIVE) 08/29/21 08/29/21 08/29/21 Range/Units 17:57 17:53 17:50 WBC 7.2 (4.0-10.5) K/mm3 RBC 4.14 (4.1-5.4) M/mm3 Hgb 13.3 (12.0-16.0) gm/dl Hct 40.3 (35-47) % MCV 97.3 (78-100) fl MCH 32.1 H (26-32) pg MCHC 33.0 (32-36) g/dl RDW 12.4 (11.5-14.0) % Plt Count 179 (150-450) K/mm3 MPV 11.9 H (7.5-11.0) fl Gran % 76.3 H (36.0-66.0) % Eos # (Auto) 0.21 (0-0.5) Absolute Lymphs (auto) 0.96 L (1.0-4.6) Absolute Monos (auto) 0.53 (0.0-1.3) Lymphocytes % 13.3 L (24.0-44.0) % Monocytes % 7.4 (0.0-12.0) % Eosinophils % 2.9 (0.00-5.0) % Basophils % 0.1 (0.0-0.4) % Absolute Granulocytes 5.50 (1.4-6.9) Basophils # 0.01 (0-0.4) D-Dimer (215-500) ng/mL Sodium (137-145) mmol/L Potassium (3.5-5.1) mmol/L Chloride (98-107) mmol/L Carbon Dioxide (22-30) mmol/L Anion Gap (5-15) MEQ/L BUN (7-17) mg/dL Creatinine (0.52-1.04) mg/dL Estimated GFR ML/MIN Glucose (74-106) mg/dL Calcium (8.4-10.2) mg/dL Total Bilirubin (0.2-1.3) mg/dL AST (14-36) U/L ALT (0-35) U/L Alkaline Phosphatase (38-126) U/L Troponin I (0.000-0.034) ng/mL Serum Total Protein (6.3-8.2) g/dL Albumin (3.5-5.0) g/dL Urine Color YELLOW (YELLOW) Urine Appearance CLEAR (CLEAR) Urine pH 7.0 (5-6) Ur Specific Wayne 1.011 (1.005-1.025) Urine Protein NEGATIVE (Negative) Urine Ketones NEGATIVE (NEGATIVE) Urine Blood MODERATE (0-5) Charles/ul Urine Nitrite NEGATIVE (NEGATIVE) Urine Bilirubin NEGATIVE (NEGATIVE) Urine Urobilinogen NEGATIVE (0-1) mg/dL Ur Leukocyte Esterase NEGATIVE (NEGATIVE) Urine WBC (Auto) NONE (0-5) /HPF Urine RBC (Auto) 16-25 (0-2) /HPF U Epithel Cells (Auto) NONE (FEW) /HPF Urine Bacteria (Auto) NONE (NEGATIVE) /HPF Urine Mucus (Auto) SLIGHT (NEGATIVE) /HPF Urine Culture Reflexed NO (NO) Urine Glucose NEGATIVE (NEGATIVE) mg/dL Influenza Type A Ag NEGATIVE (NEGATIVE) Influenza Type B Ag NEGATIVE (NEGATIVE) - Progress Progress: improved Air Movement: good Progress Note: 08/29/21 19:17 Chest x-ray shows no acute cardiopulmonary process. Blood Culture(s) Obtained: No Antibiotics given: No Counseled pt/family regarding: lab results, diagnosis, need for follow-up, rad results - Departure Departure Disposition: Home Clinical Impression: Influenza vaccine side effect Condition: Stable Critical Care Time: No Referrals: AUDELIA YU [Primary Care Provider] - Additional Instructions: Drink plenty of clear liquids. Use Tylenol for pain control. Take medication as prescribed. Follow-up with your primary care physician for further manage ment. Prescriptions: Ondansetron ODT 4 MG [Zofran Odt 4 mg] 4 mg PO Q6H PRN PRN #10 tablet PRN Reason: Vomiting
[2021-08-29] MEDS ORDERED: ZOFRAN ODT 4 MG PO ONE (17:41)
[2021-08-29] MEDS ORDERED: ZOFRAN ODT 4 MG ONE (17:43)
[2021-08-29 18:40] LABS: Appearance CLEAR (CLEAR); Bilirubin NEGATIVE (NEGATIVE); Blood MODERATE Ery/ul (0-5); Glucose NEGATIVE (NEGATIVE); Ketones NEGATIVE (NEGATIVE); Leukocyte Esterase NEGATIVE (NEGATIVE); Mucus SLIGHT /HPF (NEGATIVE); Nitrite NEGATIVE (NEGATIVE); Protein,Urine Dip NEGATIVE (Negative); Specific Gravity 1.011 (1.005-1.025); Urobilinogen NEGATIVE mg/dL (0-1)
[2021-08-29 18:57] LABS: ALBUMIN 4.5 g/dL (3.5-5.0); ALKALINE PHOSPHATASE 91 U/L (38-126); ANION GAP 15.8 MEQ/L (5-15); BLOOD UREA NITROGEN 9 mg/dL (7-17); CHLORIDE 105 mmol/L (98-107); Calcium 9.5 mg/dL (8.4-10.2); Carbon Dioxide 20 mmol/L (22-30); Creatinine 1 0.58 mg/dL (0.52-1.04); EST GLOMERULAR FILTRATION RATE > 60.0 ML/MIN; Glucose 93 mg/dL (74-106); Potassium 3.8 mmol/L (3.5-5.1); SGOT/AST 22 U/L (14-36); SGPT/ALT 23 U/L (0-35); SODIUM 137 mmol/L (137-145)
[2021-08-29 19:12] LABS: BASOPHIL % 0.1 % (0.0-0.4); Basophil (Absolute #) 0.01 (0-0.4); Eosinophil % 2.9 % (0.00-5.0); Eosinophil (Absolute #) 0.21 (0-0.5); Hematocrit 40.3 % (35-47); Hemoglobin 13.3 gm/dl (12.0-16.0); Lymphocyte (Absolute #) 0.96 (1.0-4.6); Lymphocytes % 13.3 % (24.0-44.0); Mean Cell Volume 97.3 fl (78-100); Mean Corpuscular Hemoglobin 32.1 pg (26-32); Mean Platelet Volume 11.9 fl (7.5-11.0); Monocyte (Absolute #) 0.53 (0.0-1.3); Monocytes % 7.4 % (0.0-12.0); Neutrophil % 76.3 % (36.0-66.0); Platelet Count 179 K/mm3 (150-450); Red Blood Count 4.14 M/mm3 (4.1-5.4); Red Cell Distribution Width 12.4 % (11.5-14.0); White Blood Count 7.2 K/mm3 (4.0-10.5)
[2021-08-29 19:39] LABS: INFLUENZA A NEGATIVE (NEGATIVE); INFLUENZA B NEGATIVE (NEGATIVE)
[2021-08-29 20:13] VITALS: BP 92/53; PULSE 80; O2SAT 98
--- NOTE | 2021-08-30 08:55 | XRAY ---
Indication: Chest pain. Short of breath. Comparison: December 21, 2019. Portable chest again demonstrates normal heart, lungs, and bony thorax.
== END 2021-08-29 20:13 | disposition home or self-care (01) ==
LOC: ED 17:24
DX: T50.B95A Adverse effect of other viral vaccines, initial encounter (principal); Y92.9 Unspecified place or not applicable; R11.2 Nausea with vomiting, unspecified; R07.89 Other chest pain
CPT/HCPCS: 36415; 71045; 80053; 81001; 84484; 85025; 85379; 87040; 87400; 93005; 94760; 99284; U0003; Q0162

== ENCOUNTER 2022-06-22 19:59 | Emergency (ER) | payer OTHER ==
[2022-06-22] MEDS ORDERED: XYLOCAINE 1% HCL 20 ML MDV ONE (20:21)
[2022-06-22] MEDS ORDERED: XYLOCAINE 1% HCL 20 ML MDV IJ ONE (20:22)
[2022-06-22] MEDS ORDERED: Adacel Vial IM ONE ×2 (20:30→20:33)
--- NOTE | 2022-06-22 20:31 | ERPHSYRPT ---
- History of Present Illness Time Seen by Provider: 06/22/22 20:12 Source: patient Exam Limitations: no limitations Patient Subjective Stated Complaint: " I was doing dishes and a glass broke and cut my hand. " Triage Nursing Assessment: Pt presents to ER with complaints of laceration to right hand. Pt was doing dishes just prior to arrival and a glass broke and caused injury. Noted a approx 2cm laceration to right hand near 2nd digit. Pt also has small puncture wound near thumb. Bleeding is controlled. Appears to have full ROM. Pt appears anxious and in pain. Pt is alert and oriented x 3. Skin is pink, warm, and dry. Respirations are easy and unlabored. Pt is unsure when last tetanus shot was. Physician History: 31-year-old female presented in the ER with chief complaint of laceration right hand while she was doing dishes and accidentally hit the broken sharp glass piece. There was bleeding initially was stopped with applying pressure. Complaining of moderate intensity sharp pain at the base of right index finger on the lateral aspect, aggravated with movements and better with being still. No numbness or tingling in the finger. Unsure about tetanus status. Timing/Duration: hour(s) (0.5), constant, sudden Quality: painful Severity: moderate Location: hands Allergies/Adverse Reactions: meloxicam Allergy (Verified 06/22/22 20:12) sulfamethoxazole [From Bactrim] Allergy (Verified 06/22/22 20:12) Home Medications: Albuterol Sulfate [Proair Hfa] 2 puff IH DAILY PRN PRN 11/11/15 [History] Famotidine 20 mg PO DAILY 06/22/22 [History] Fluticasone/Vilanterol [Breo Ellipta 200-25 Mcg INH] 1 puff IH DAILY 06/22/22 [History] Montelukast Sodium [Singulair] 10 mg PO DAILY 06/22/22 [History] Hx Tetanus, Diphtheria Vaccination/Date Given: No Hx Influenza Vaccination/Date Given: Yes Hx Pneumococcal Vaccination/Date Given: No Immunizations Up to Date: Yes Travel Risk - International Travel Have you traveled outside of the country in past 3 weeks: No - Coronavirus Screening Are you exhibiting any of the following symptoms?: No Close contact with a COVID-19 positive Pt in past 14-21 Days: No - Vaccine Status Have you recieved a Covid-19 vaccination: Yes 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 - Vaccination Dates Date of 2cond Vaccination (if applicable): 09/25/21 - Review of Systems Constitutional: No Symptoms Eyes: No Symptoms Respiratory: No Symptoms Cardiac: No Symptoms Abdominal/Gastrointestinal: No Symptoms Genitourinary Symptoms: No Symptoms Musculoskeletal: Injury Skin: No Symptoms Psychological: No Symptoms Endocrine: No Symptoms Hematologic/Lymphatic: No Symptoms - Past Medical History Pertinent Past Medical History: Yes Neurological History: No Pertinent History ENT History: No Pertinent History Cardiac History: No Pertinent History Respiratory History: Asthma Endocrine Medical History: No Pertinent History Musculoskeletal History: Degenerative Disk Disease GI Medical History: No Pertinent History History: No Pertinent History Psycho-Social History: Anxiety, Depression Female Reproductive Disorders: No Pertinent History - Past Surgical History Past Surgical History: Yes Neuro Surgical History: No Pertinent History Cardiac: No Pertinent History Respiratory: No Pertinent History Gastrointestinal: Cholecystectomy Genitourinary: No Pertinent History Musculoskeletal: No Pertinent History Female Surgical History: Section, Tubal Ligation Other Surgical History: CS x3, carpal tunnel - Social History Smoking Status: Current every day smoker How long have you smoked: 15 years Exposure to second hand smoke: No Alcohol Use: None Drug Use: none Patient Lives Alone: No Significant Family History: no pertinent family hx - Female History Hx Last Menstrual Period: 06/05/22 Hx Now: No - Nursing Vital Signs Nursing Vital Signs: Initial Vital Signs Temperature 97.4 F 06/22/22 20:03 Pulse Rate 82 06/22/22 20:03 Respiratory Rate 18 06/22/22 20:03 Blood Pressure 149/81 06/22/22 20:03 O2 Sat by Pulse Oximetry 98 06/22/22 20:03 Pain Scale Pain Intensity 10 - Physical Exam General Appearance: no apparent distress, alert Eye Exam: PERRL/EOMI Ears, Nose, Throat Exam: normal ENT inspection Neck Exam: normal inspection, full range of motion Respiratory Exam: normal breath sounds, lungs clear Cardiovascular Exam: regular rate/rhythm, normal heart sounds Back Exam: normal inspection Extremity Exam: lacerations (2 cm curved superficial flap laceration at metacarpophalangeal joint lateral aspect of index finger. Intact range of motion at metacarpophalangeal joint. Distal neurovascular intact. Also has a 0.2 cm superficial laceration right hand first webspace.), tenderness Neurologic Exam: alert, oriented x 3, cooperative Skin Exam: normal color SpO2 Interpretation: normal SpO2: 98 O2 Delivery: Room Air Procedures - Laceration/Wound Repair Right Finger Time of Procedure: 20:29 Wound Location: Right Wound Length (cm): 2 Wound's Depth, Shape: superficial Wound Explored: clean Irrigated: Yes Hibiclens Prep: Yes Anesthesia: 1% Lidocaine Volume Anesthetic (ccs): 3 Wound Repaired With: sutures Suture Size/Type: 4-0, nylon Number of Sutures: 4 Layer Closure?: No Sterile Dressing Applied?: Yes Splint Applied?: Yes Type of Splint Applied: Aluminum Ordered Tests: Medication Summary Discontinued Medications Generic Name Dose Route Start Last Admin Trade Name Freq PRN Reason Stop Dose Admin Diphtheria/Tetanus/Acell Pertussis 0.5 ml 06/22/22 20:30 06/22/22 20:35 Tdap --Diph,Pertuss(Acell),Tet Vac/Pf 0.5 Ml Vial IM 06/22/22 20:31 0.5 ml .ONCE ONE Administration Diphtheria/Tetanus/Acell Pertussis Confirm 06/22/22 20:33 Tdap --Diph,Pertuss(Acell),Tet Vac/Pf 0.5 Ml Vial Administered 06/22/22 20:34 Dose 0.5 ml IM .STK-MED ONE Lidocaine HCl 5 ml 06/22/22 20:22 06/22/22 20:23 Lidocaine Hcl 1% 20 Ml Mdv 20 Ml Ml IJ 06/22/22 20:23 5 ml STAT ONE Administration Lidocaine HCl Confirm 06/22/22 20:21 Lidocaine Hcl 1% 20 Ml Mdv 20 Ml Ml Administered 06/22/22 20:22 Dose 5 ml .ROUTE .STK-MED ONE - Progress Progress: improved Progress Note: 06/22/22 20:30 Laceration is repaired, tetanus is updated. With superficial injury, Do not think needs imaging. Does not want stitches on the other superficial small laceration in the first webspace. Recommended taking Tylenol for pain. Outpatient follow-up. 06/22/22 20:48 Counseled pt/family regarding: diagnosis, need for follow-up - Departure Departure Disposition: Home Clinical Impression: Finger laceration Condition: Stable Critical Care Time: No Referrals: AUDELIA MARCELO [Primary Care Provider] - Follow Up with PCP/3 days Instructions: Laceration Repair With Stitches (DC) Additional Instructions: Take Tylenol as needed for pain. Avoid exertional work with right hand. Follow-up with primary care for reevaluation. Suture removal in 10 to 14 days. Return to ER for increasing pain swelling, difficulty movements, fever chills etc.
[2022-06-22] MEDS ORDERED: BACIGUENT PACKET TP ONE (20:51)
[2022-06-22] MEDS ORDERED: BACIGUENT PACKET ONE (20:52)
[2022-06-22 21:02] VITALS: BP 140/84; PULSE 71; O2SAT 100
== END 2022-06-22 21:04 | disposition home or self-care (01) ==
LOC: ED 19:59
DX: S61.210A Laceration without foreign body of right index finger without damage to nail, initial encounter (principal); S61.411A Laceration without foreign body of right hand, initial encounter; W25.XXXA Contact with sharp glass, initial encounter; Y93.G1 Activity, food preparation and clean up; Y92.000 Kitchen of unspecified non-institutional (private) residence as the place of occurrence of the external cause; M79.641 Pain in right hand; Z72.0 Tobacco use; Z79.899 Other long term (current) drug therapy
CPT/HCPCS: 12001; 90471; 90715; 96372; 99283; A9270-GY

== ENCOUNTER 2023-09-24 18:48 | Emergency (ER) | payer OTHER ==
[2023-09-24 20:34] VITALS: RESP 20; TEMP 98.7; O2SAT 99
[2023-09-24] MEDS ORDERED: DELTASONE 20 MG ONE (20:38)
--- NOTE | 2023-09-24 20:40 | ERPHSYRPT ---
- History of Present Illness Time Seen by Provider: 09/24/23 20:30 Source: patient Exam Limitations: no limitations Patient Subjective Stated Complaint: pt states she has been having body aches, cough, sore throat since sunday night. states her daighter tested positive for strep on sunday Triage Nursing Assessment: pt alert and oriented, answers questions approp. pt ambulates into room with steady gait noted. respirations nonlabored. exp wheezes noted throughout. skin warm and dry. Physician History: This is an obese 32-year-old female who presents with 2-day history of sore throat cough and body aches. Patient's daughter tested positive for strep pharyngitis approximately 2 days ago. Patient is not short of breath. She does feel as though she is wheezing. Patient does have a history of asthma and has nebulizer treatments and albuterol inhalers at home. Patient denies chest pain. Patient denies nausea vomiting and diarrhea symptoms. She has no abdominal pain. Timing/Duration: day(s) (2) Cough Quality/Degree: mild Possible Cause: no prior episodes Modifying Factors: Improves With: coughing (Mild) Associated Symptoms: cough, sore throat, wheezing, No chest pain/soreness, No headache, No shortness of breath Allergies/Adverse Reactions: meloxicam Allergy (Verified 09/24/23 20:35) sulfamethoxazole [From Bactrim] Allergy (Verified 09/24/23 20:35) trimethoprim [From Bactrim] Adverse Reaction (Verified 09/24/23 20:35) Swelling of Face Home Medications: Albuterol Sulfate [Proair Hfa] 2 puff IH DAILY PRN PRN 11/11/15 [History] Famotidine 20 mg PO DAILY 06/22/22 [History] Fluticasone/Vilanterol [Breo Ellipta 200-25 Mcg INH] 1 puff IH DAILY 06/22/22 [History] Montelukast Sodium [Singulair] 10 mg PO DAILY 06/22/22 [History] Loratadine 10 mg [Claritin 10 mg] 10 mg PO DAILY 07/30/23 [History] Hx Tetanus, Diphtheria Vaccination/Date Given: Yes Hx Influenza Vaccination/Date Given: No Hx Pneumococcal Vaccination/Date Given: No Travel Risk - International Travel Have you traveled outside of the country in past 3 weeks: No - Coronavirus Screening Are you exhibiting any of the following symptoms?: Yes Symptoms: Cough: New Onset, Headaches/Body Aches/Fatigue Close contact with a COVID-19 positive Pt in past 14-21 Days: No - Vaccine Status Have you recieved a Covid-19 vaccination: Yes [employer]: Moderna - Vaccination Dates Date of 2cond Vaccination (if applicable): 09/25/21 - Review of Systems Constitutional: No Symptoms Eyes: No Symptoms Ears, Nose, & Throat: Nose Congestion, Throat Pain Respiratory: Cough, Wheezing Cardiac: No Symptoms Abdominal/Gastrointestinal: No Symptoms Genitourinary Symptoms: No Symptoms Musculoskeletal: No Symptoms Skin: No Symptoms Neurological: No Symptoms Psychological: No Symptoms Endocrine: No Symptoms Hematologic/Lymphatic: No Symptoms Immunological/Allergic: No Symptoms All Other Systems: Reviewed and Negative - Past Medical History Pertinent Past Medical History: Yes Neurological History: No Pertinent History ENT History: No Pertinent History Cardiac History: No Pertinent History Respiratory History: Asthma Endocrine Medical History: No Pertinent History Musculoskeletal History: Degenerative Disk Disease GI Medical History: No Pertinent History, Gallbladder Disease History: No Pertinent History Psycho-Social History: Depression, Anxiety Female Reproductive Disorders: No Pertinent History Other Medical History: seasonal allergies, palpitations - Past Surgical History Past Surgical History: Yes Neuro Surgical History: No Pertinent History Cardiac: No Pertinent History Respiratory: No Pertinent History Gastrointestinal: Cholecystectomy Genitourinary: No Pertinent History Musculoskeletal: No Pertinent History Female Surgical History: Tubal Ligation, Section Other Surgical History: x3, carpal tunnel bilateral wrist and bilateral elbows - Social History Smoking Status: Current every day smoker How long have you smoked: 16 years Exposure to second hand smoke: Yes Alcohol Use: None Drug Use: none Patient Lives Alone: No Significant Family History: no pertinent family hx - Female History Hx Last Menstrual Period: 09/07/23 Hx Now: No - Nursing Vital Signs Nursing Vital Signs: Initial Vital Signs Temperature 98.7 F 09/24/23 20:18 Pulse Rate 98 H 09/24/23 20:18 Respiratory Rate 20 09/24/23 20:18 Blood Pressure 117/75 09/24/23 20:18 O2 Sat by Pulse Oximetry 100 09/24/23 20:18 Pain Scale Pain Intensity 10 - Physical Exam General Appearance: no apparent distress, alert, obese Eye Exam: PERRL/EOMI, eyes nml inspection Ears, Nose, Throat Exam: normal ENT inspection, moist mucous membranes Neck Exam: normal inspection, non-tender, supple, full range of motion Respiratory Exam: lungs clear, airway intact, wheezing (Mild expiratory wheezing bilaterally), No chest tenderness, No respiratory distress Cardiovascular Exam: regular rate/rhythm, normal heart sounds, normal peripheral pulses Gastrointestinal/Abdomen Exam: soft, normal bowel sounds, No tenderness Pelvic Exam: not done Rectal Exam: not done Back Exam: normal inspection, normal range of motion, No CVA tenderness, No vertebral tenderness Extremity Exam: normal inspection, normal range of motion, pelvis stable Neurologic Exam: alert, oriented x 3, cooperative, relief manager II-XII nml as tested, normal mood/affect, nml cerebellar function, nml station & gait, sensation nml Skin Exam: normal color, warm Lymphatic Exam: No adenopathy SpO2 Interpretation: normal SpO2: 99 O2 Delivery: Room Air - Course Nursing assessment & vital signs reviewed: Yes Ordered Tests: Medication Summary Discontinued Medications Generic Name Dose Route Start Last Admin Trade Name Glo PRN Reason Stop Dose Admin Prednisone 20 mg 09/24/23 20:35 09/24/23 20:41 Prednisone 20 Mg Tablet PO 09/24/23 20:36 20 mg STAT ONE Administration Prednisone Confirm 09/24/23 20:38 Prednisone 20 Mg Tablet Administered 09/24/23 20:39 Dose 20 mg .ROUTE .STK-MED ONE Lab/Rad Data: Laboratory Results 09/24/23 Range/Units 20:28 Influenza Type A Ag NEGATIVE (NEGATIVE) Influenza Type B Ag NEGATIVE (NEGATIVE) RSV (PCR) NEGATIVE (NEGATIVE) SARS-CoV-2 (PCR) NEGATIVE (NEGATIVE) Group A Strep Antibody NOT DETECTED (NEGATIVE) - Progress Progress: improved, re-examined Air Movement: good Progress Note: 09/24/23 20:50 This patient's medical issue is 1 of low complexity. Level complex in the work- up performed is based on review the patient's past medical history, review of the patient's medication list, review patient drug allergy list, history of present illness and physical findings on examination. Work-up in this patient includes viral studies, group A strep. We will also provide the patient with oral steroid dose. 09/24/23 21:25 I reviewed the patient's lab work. There is no acute, emergent medical issue. Blood Culture(s) Obtained: No Antibiotics given: No Counseled pt/family regarding: lab results, diagnosis, need for follow-up Medical Desision Making - Diagnostic Testing Diagnostic test were ordered, analyzed, and reviewed by me: Yes - Risk of complications The pt has a mod risk of morbidity or mortality based on: Need for prescription drug management - Departure Departure Disposition: Home Clinical Impression: Pharyngitis Condition: Stable Critical Care Time: No Referrals: AUDELIA MARCELO [Primary Care Provider] - Follow up/PCP as directed Additional Instructions: Drink plenty of clear liquids. Take your steroids and other medication as prescribed. Use your nebulizer treatment every 4 hours while awake for the next 48 hours. Call your primary care provider tomorrow, 09/25/2023 to make arranges for follow-up and further management. Prescriptions: Prednisone 10 mg [Deltasone 10 mg] 10 mg PO TID #12 tablet
[2023-09-24] MEDS: DELTASONE 20 MG PO ONE (20:41)
[2023-09-24 20:57] LABS: Group A Strep NOT DETECTED (NEGATIVE)
[2023-09-24 21:08] LABS: INFLUENZA A NEGATIVE (NEGATIVE); INFLUENZA B NEGATIVE (NEGATIVE); RESPIRATORY SYNCTIAL VIRUS NEGATIVE (NEGATIVE); SARS-CoV-2 Xpert Express NEGATIVE (NEGATIVE)
[2023-09-24 21:46] VITALS: BP 115/65; PULSE 86
== END 2023-09-24 21:51 | disposition home or self-care (01) ==
LOC: ED 18:48
DX: J02.9 Acute pharyngitis, unspecified (principal); R05.1 Acute cough; M79.10 Myalgia, unspecified site; Z79.899 Other long term (current) drug therapy; Z72.0 Tobacco use
CPT/HCPCS: 0241U; 87651; 99282; A9270-GY

== ENCOUNTER 2024-06-30 21:47 | Emergency (ER) | payer BC ==
[2024-07-01 00:11] VITALS: TEMP 97.5
--- NOTE | 2024-07-01 00:31 | ERPHSYRPT ---
- History of Present Illness Time Seen by Provider: 07/01/24 00:31 Source: patient Exam Limitations: no limitations Patient Subjective Stated Complaint: right flank pain which comes around to rt lower abd region Triage Nursing Assessment: Pt ambulated into ER without diff, spouse at bedside. Pt alert and oriented x4. Pt c/o rt flank pain which radiates to RLQ pain. Pt has had discomfort all day, but became became more severe around 8pm tonight. Pt denies any nausea or vomiting. LBM 06/30/24 at 0745. Abd lg, round, obese with active bs x4 quad, tender to RLQ region. Physician History: 33yo f presents via private vehicle for right sided flank and abdominal pain that started this morning. Pt reports the pain is sharp, radiates from her low back around to her RLQ. Pt denies any significant nausea, denies vomiting, denies diarrhea. Pt reports normal BM this AM. Pt reports hx significant for kidney stones, reports her most recent was 3-4mo prior. Pt denies any fevers, cp, sob, n/v. Timing/Duration: today Quality: radiating, sharp Severity of Pain-Max: moderate Severity of Pain-Current: moderate Modifying Factors: Improves With: nothing Associated Symptoms: lower back pain, No fever, No chills, No urinary incontinence, No constipation, No nausea, No vomiting, No problems urinating, No dizziness Previous symptoms: same symptoms as today Allergies/Adverse Reactions: meloxicam Allergy (Verified 07/01/24 00:19) sulfamethoxazole [From Bactrim] Allergy (Verified 07/01/24 00:19) trimethoprim [From Bactrim] Adverse Reaction (Verified 07/01/24 00:19) Swelling of Face Home Medications: Albuterol Sulfate [Proair Hfa] 2 puff IH DAILY PRN PRN 11/11/15 [History] Hx Tetanus, Diphtheria Vaccination/Date Given: Yes Hx Influenza Vaccination/Date Given: No Hx Pneumococcal Vaccination/Date Given: No Travel Risk - International Travel Have you traveled outside of the country in past 3 weeks: No - Emerging Infectious Disease Are you exhibiting symptoms associated with any current EIDs: Yes Symptoms: Abdominal Pain - Review of Systems Constitutional: No Symptoms Respiratory: No Symptoms Cardiac: No Symptoms Abdominal/Gastrointestinal: Abdominal Pain, No Nausea, No Vomiting, No Diarrhea, No Constipation, No Hematemesis, No Hematochezia Genitourinary Symptoms: Flank Pain, No Dysuria, No Frequency, No Hematuria, No Incontinence, No Urgency, No Urinary Retention, No , No Vaginal Discharge - Past Medical History Pertinent Past Medical History: Yes Neurological History: No Pertinent History ENT History: No Pertinent History Cardiac History: No Pertinent History Respiratory History: Asthma Endocrine Medical History: No Pertinent History Musculoskeletal History: Degenerative Disk Disease GI Medical History: Gallbladder Disease History: No Pertinent History Psycho-Social History: Depression, Anxiety Female Reproductive Disorders: No Pertinent History Other Medical History: seasonal allergies, palpitations - Past Surgical History Past Surgical History: Yes Neuro Surgical History: No Pertinent History Cardiac: No Pertinent History Respiratory: No Pertinent History Gastrointestinal: Cholecystectomy Genitourinary: No Pertinent History Musculoskeletal: No Pertinent History Female Surgical History: Tubal Ligation, Section Other Surgical History: x3, carpal tunnel bilateral wrist and bilateral elbows Significant Family History: no pertinent family hx - Female History Hx Last Menstrual Period: 06/01/24 Hx Now: No - Social History Smoking Status: Current every day smoker How long have you smoked: 17 yrs Exposure to second hand smoke: Yes Alcohol Use: None Drug Use: none Patient Lives Alone: No - Social Determinants of Health Will the patient participate in the screening: Yes Do you worry about a steady place to live?: No Do you have any problems with any of the following?: No known problems In the past 12 months,have you had to go without utilities?: No Transportation Issues: No Has anyone in your support network made you feel unsafe?: No Have you or anyone in your house had to go without enough: No - Nursing Vital Signs Nursing Vital Signs: Initial Vital Signs Temperature 97.5 F 07/01/24 00:07 Pulse Rate 74 07/01/24 00:07 Respiratory Rate 22 07/01/24 00:07 Blood Pressure 130/105 07/01/24 00:07 O2 Sat by Pulse Oximetry 100 07/01/24 00:07 Pain Scale Pain Intensity 7 - Physical Exam General Appearance: no apparent distress, alert Respiratory Exam: normal breath sounds, lungs clear, airway intact, No chest tenderness, No respiratory distress Cardiovascular Exam: regular rate/rhythm, normal heart sounds, normal peripheral pulses Gastrointestinal Exam: soft, normal bowel sounds, No tenderness, No distention, No guarding Back Exam: CVA tenderness (right) Neurologic Exam: alert, oriented x 3, cooperative Skin Exam: normal color, warm, dry SpO2 Interpretation: normal SpO2: 100 O2 Delivery: Room Air Ordered Tests: Active Orders 24 hr Category Date Time Status ABDOMEN AND PELVIS W/0 CONTRAS [CT] Stat Exams 07/01/24 01:14 Completed CBC W DIFF Stat Lab 07/01/24 01:25 Completed CMP Stat Lab 07/01/24 01:25 Completed CULTURE,URINE Stat Lab 07/01/24 00:20 Received HCG QUALITATIVE, URINE Stat Lab 07/01/24 00:20 Completed LIPASE Stat Lab 07/01/24 01:25 Completed UA W/RFX UR CULTURE Stat Lab 07/01/24 00:20 Completed Medication Summary Discontinued Medications Generic Name Dose Route Start Last Admin Trade Name Freq PRN Reason Stop Dose Admin Hydromorphone HCl 1 mg 07/01/24 01:12 07/01/24 01:44 Hydromorphone 1 Mg/1ml Inj IV 07/01/24 01:13 1 mg STAT ONE Administration Hydromorphone HCl Confirm 07/01/24 01:39 Hydromorphone 1 Mg/1ml Inj Administered 07/01/24 01:40 Dose 1 mg .ROUTE .STK-MED ONE Sodium Chloride 1,000 mls @ 999 mls/hr 07/01/24 01:12 07/01/24 01:43 Sodium Chloride 0.9% 1000 Ml IV 07/01/24 02:12 999 mls/hr .Q1H1M STA Administration Sodium Chloride Confirm 07/01/24 01:39 Sodium Chloride 0.9% 1000 Ml Administered 07/01/24 01:40 Dose 1,000 mls @ ud .ROUTE .STK-MED ONE Ondansetron HCl 4 mg 07/01/24 01:12 07/01/24 01:43 Ondansetron Hcl 4 Mg/2 Ml Vial IV 07/01/24 01:13 4 mg STAT ONE Administration Ondansetron HCl Confirm 07/01/24 01:39 Ondansetron Hcl 4 Mg/2 Ml Vial Administered 07/01/24 01:40 Dose 4 mg .ROUTE .STK-MED ONE Lab/Rad Data: Laboratory Result Diagrams 07/01/24 01:25 07/01/24 01:25 Laboratory Results 07/01/24 07/01/24 07/01/24 Range/Units 01:25 01:25 00:20 WBC 7.4 (3.98-10.04) x10^3/uL RBC 4.03 (3.93-5.22) x10^6/uL Hgb 12.7 (11.2-15.7) g/dL Hct 37.7 (34.1-44.9) % MCV 93.5 (79.4-94.8) fL MCH 31.5 (25.6-32.2) pg MCHC 33.7 (32.2-35.5) g/dL RDW 12.2 (11.7-14.4) % Plt Count 244 (182-369) x10^3/uL MPV 10.4 (9.4-12.3) fL Gran % 48.2 (34.0-71.1) % Immature Gran % (Auto) 0.1 (0.001-0.429) % Nucleat RBC Rel Count 0.0 (0.00-0.2) % Eos # (Auto) 0.47 H (0.04-0.36) x10^3/uL Immature Gran # (Auto) 0.01 (0.001-0.031) x10^3u/L Absolute Lymphs (auto) 2.86 (1.18-3.74) x10^3/uL Absolute Monos (auto) 0.47 (0.24-0.86) x10^3/uL Absolute Nucleated RBC 0.00 (0.00-0.012) x10^3u/L Lymphocytes % 38.6 (19.3-51.7) % Monocytes % 6.3 (4.7-12.5) % Eosinophils % 6.3 H (0.7-5.8) % Basophils % 0.5 (0.1-1.2) % Absolute Granulocytes 3.56 (1.56-6.13) x10^3/uL Basophils # 0.04 (0.01-0.08) x10^3/uL Sodium 139 (135-145) mmol/L Potassium 4.0 (3.5-5.1) mmol/L Chloride 106 (98-107) mmol/L Carbon Dioxide 23 (22-30) mmol/L Anion Gap 13.9 (5-15) MEQ/L BUN 17 (7-17) mg/dL Creatinine 0.78 (0.52-1.04) mg/dL Estimated GFR 102.8 ML/MIN Glucose 95 (74-106) mg/dL Calcium 9.3 (8.4-10.2) mg/dL Total Bilirubin 0.30 (0.2-1.3) mg/dL AST 27 (14-36) U/L ALT 31 (0-35) U/L Alkaline Phosphatase 74 (38-126) U/L Serum Total Protein 7.7 (6.3-8.2) g/dL Albumin 4.3 (3.5-5.0) g/dL Lipase 73 (23-300) U/L Urine Color (Yellow) Urine Appearance (Clear) Urine pH (4.6-8.0) Ur Specific [place] (1.005-1.030) Urine Protein (Negative) Urine Glucose (UA) (Negative) mg/dL Urine Ketones (Negative) Urine Blood (Negative) Urine Nitrite (Negative) Urine Bilirubin (Negative) Urine Urobilinogen (0.2) mg/dL Ur Leukocyte Esterase (Negative) U Hyaline Cast (Auto) (0-2) /LPF Urine Microscopic RBC (0-5) /HPF Urine Microscopic WBC (0-5) /HPF Ur Epithelial Cells (None Seen) /HPF Urine Bacteria (None Seen) /HPF Urine Culture Reflexed (NO) Urine HCG, Qual NEGATIVE (NEGATIVE) 07/01/24 Range/Units 00:20 WBC (3.98-10.04) x10^3/uL RBC (3.93-5.22) x10^6/uL Hgb (11.2-15.7) g/dL Hct (34.1-44.9) % MCV (79.4-94.8) fL MCH (25.6-32.2) pg MCHC (32.2-35.5) g/dL RDW (11.7-14.4) % Plt Count (182-369) x10^3/uL MPV (9.4-12.3) fL Gran % (34.0-71.1) % Immature Gran % (Auto) (0.001-0.429) % Nucleat RBC Rel Count (0.00-0.2) % Eos # (Auto) (0.04-0.36) x10^3/uL Immature Gran # (Auto) (0.001-0.031) x10^3u/L Absolute Lymphs (auto) (1.18-3.74) x10^3/uL Absolute Monos (auto) (0.24-0.86) x10^3/uL Absolute Nucleated RBC (0.00-0.012) x10^3u/L Lymphocytes % (19.3-51.7) % Monocytes % (4.7-12.5) % Eosinophils % (0.7-5.8) % Basophils % (0.1-1.2) % Absolute Granulocytes (1.56-6.13) x10^3/uL Basophils # (0.01-0.08) x10^3/uL Sodium (135-145) mmol/L Potassium (3.5-5.1) mmol/L Chloride (98-107) mmol/L Carbon Dioxide (22-30) mmol/L Anion Gap (5-15) MEQ/L BUN (7-17) mg/dL Creatinine (0.52-1.04) mg/dL Estimated GFR ML/MIN Glucose (74-106) mg/dL Calcium (8.4-10.2) mg/dL Total Bilirubin (0.2-1.3) mg/dL AST (14-36) U/L ALT (0-35) U/L Alkaline Phosphatase (38-126) U/L Serum Total Protein (6.3-8.2) g/dL Albumin (3.5-5.0) g/dL Lipase (23-300) U/L Urine Color Yellow (Yellow) Urine Appearance Clear (Clear) Urine pH 5.5 (4.6-8.0) Ur Specific [place] 1.020 (1.005-1.030) Urine Protein Negative (Negative) Urine Glucose (UA) Negative (Negative) mg/dL Urine Ketones Negative (Negative) Urine Blood Moderate A (Negative) Urine Nitrite Negative (Negative) Urine Bilirubin Negative (Negative) Urine Urobilinogen 0.2 (0.2) mg/dL Ur Leukocyte Esterase Negative (Negative) U Hyaline Cast (Auto) NONE SEEN (0-2) /LPF Urine Microscopic RBC 11-20 A (0-5) /HPF Urine Microscopic WBC 0-2 (0-5) /HPF Ur Epithelial Cells Rare (None Seen) /HPF Urine Bacteria Few A (None Seen) /HPF Urine Culture Reflexed YES (NO) Urine HCG, Qual (NEGATIVE) - Progress Progress: improved Progress Note: 07/01/24 03:49 pain totally resolved w/ dose of dilaudid UA showed microscopic hematuria labs otherwise unremarkable ct abd/pelvis showed - 1. Subtle hyperdensities noted in the left kidney, more conspicuous on current CT examination, may represent nephrocalcinosis vs. calculi (developing). No hydronephrosis in either kidney. 2. Subsegmental atelectasis in the right lung base. 3. The enlarged left ovary measuring 6.1 x 3.3 cm is redemonstrated. if clinically indicated, MRI with contrast would be helpful for further evaluation. 4. No other significant interval change from prior CT. right flank/low back pain likely 2/2 passage of kidney stone vs oblique/back muscle strain plan for discharge home w/ close PCP follow (Aimee) next week recommend tylenol/ibuprofen for pain control recommend oral hydration w/ clear liquids and electrolyte containing fluids return to ED if: develop fevers, pain becomes unbearable, develop significant nausea and vomiting Counseled pt/family regarding: lab results, diagnosis, need for follow-up, rad results Medical Desision Making - Diagnostic Testing Diagnostic test were ordered, analyzed, and reviewed by me: Yes Radiological Interpretation: Reviewed by me, Teleradiologist Report - Risk of complications Minimal Risk: Minimal risk of morbidity - Departure Departure Disposition: Home Clinical Impression: Right flank pain, Left ovarian enlargement Condition: Stable Critical Care Time: No Referrals: AUDELIA MARCELO [Primary Care Provider] - Follow up/PCP as directed Additional Instructions: plan for discharge home w/ close PCP follow (Aimee) next week recommend tylenol/ibuprofen for pain control recommend oral hydration w/ clear liquids and electrolyte containing fluids return to ED if: develop fevers, pain becomes unbearable, develop significant nausea and vomiting
[2024-07-01 00:34] LABS: Appearance Clear (Clear); Bacteria Few /HPF (None Seen); Bilirubin Negative (Negative); Blood Moderate (Negative); Epithelial Cells Rare /HPF (None Seen); Glucose, Urine Negative (Negative); Hyaline Casts NONE SEEN /LPF (0-2); Ketones Negative (Negative); Leukocyte Esterase Negative (Negative); Nitrite Negative (Negative); Ph 5.5 (4.6-8.0); Protein,Urine Dip Negative (Negative); Urobilinogen 0.2 mg/dL (0.2); WBC 0-2 /HPF (0-5)
[2024-07-01 00:35] LABS: HCG URINE TEST NEGATIVE (NEGATIVE)
[2024-07-01 00:38] LABS: ADD URINE CULTURE? YES (NO)
[2024-07-01 01:27] LABS: Absolute Neutrophil Ct (ANC) 3.56 x10^3/uL (1.56-6.13); BASOPHIL % 0.5 % (0.1-1.2); Basophil (Absolute #) 0.04 x10^3/uL (0.01-0.08); Eosinophil % 6.3 % (0.7-5.8); Eosinophil (Absolute #) 0.47 x10^3/uL (0.04-0.36); Hematocrit 37.7 % (34.1-44.9); Hemoglobin 12.7 g/dL (11.2-15.7); IMMATURE GRAN # 0.01 x10^3u/L (0.001-0.031); IMMATURE GRAN % 0.1 % (0.001-0.429); Lymphocyte (Absolute #) 2.86 x10^3/uL (1.18-3.74); Lymphocytes % 38.6 % (19.3-51.7); Mean Cell Volume 93.5 fL (79.4-94.8); Mean Corpuscular Hemoglobin 31.5 pg (25.6-32.2); Mean Corpuscular Hgb Concent. 33.7 g/dL (32.2-35.5); Mean Platelet Volume 10.4 fL (9.4-12.3); Monocyte (Absolute #) 0.47 x10^3/uL (0.24-0.86); Monocytes % 6.3 % (4.7-12.5); Neutrophil % 48.2 % (34.0-71.1); Platelet Count 244 x10^3/uL (182-369); Red Blood Count 4.03 x10^6/uL (3.93-5.22); Red Cell Distribution Width 12.2 % (11.7-14.4); White Blood Count 7.4 x10^3/uL (3.98-10.04)
[2024-07-01] MEDS ORDERED: Zofran 4 MG/2 ML VIAL ONE (01:39)
[2024-07-01] MEDS ORDERED: Sodium Chloride 0.9% 1000 ML 1,000 ML ONE (01:39)
[2024-07-01] MEDS ORDERED: Hydromorphone 1 mg/ml Injection ONE (01:39)
[2024-07-01 01:41] LABS: ALBUMIN 4.3 g/dL (3.5-5.0); ANION GAP 13.9 MEQ/L (5-15); BILIRUBIN,TOTAL 0.3 mg/dL (0.2-1.3); Calcium 9.3 mg/dL (8.4-10.2); Creatinine 1 0.78 mg/dL (0.52-1.04); EST GLOMERULAR FILTRATION RATE 102.8 ML/MIN; Total Protein 7.7 g/dL (6.3-8.2)
[2024-07-01] MEDS: Sodium Chloride 0.9% 1000 ML 1,000 ML IV STA (01:43)
[2024-07-01] MEDS: Zofran 4 MG/2 ML VIAL IV ONE (01:43)
[2024-07-01] MEDS: Hydromorphone 1 mg/ml Injection IV ONE (01:44)
--- NOTE | 2024-07-01 03:09 | XRAY ---
CLINICAL HISTORY: right flank pain COMPARISON: 07/30/2023 TECHNIQUE: Axial sections of CT abdomen and pelvis were obtained without administration of intravenous contrast. Reformatted coronal and sagittal images were acquired."one of the following dose reduction techniques were utilized for this exam: Automated exposure control, adjustment of the mA and/or kV according to patient size, use of iterative reconstruction." FINDINGS: The liver is normal in size and attenuation. No discrete focal hepatic lesion seen. No evidence of intrahepatic biliary dilatation. Status postcholecystectomy. The spleen, pancreas and bilateral adrenal glands appear unremarkable. Small splenunculus is seen. Both kidneys are normal in size. No hydronephrosis in either kidney. Subtle hyperdensities noted in the left kidney, more conspicuous on current CT examination, may represent nephrocalcinosis vs. calculi. The urinary bladder is suboptimally distended. The uterus is anteverted and normal in size. Enlarged left ovary measuring 6.1 x 3.3 cm on coronal images. The right ovary appears unremarkable. The stomach is normally distended. Visualized large and small bowel loops appear unremarkable. The appendix is normal. No ascites or pneumoperitoneum. No significant abdominal pelvic lymphadenopathy. Subsegmental atelectasis in the right lung base. No acute osseous abnormality. IMPRESSION: 1. Subtle hyperdensities noted in the left kidney, more conspicuous on current CT examination, may represent nephrocalcinosis vs. calculi (developing). No hydronephrosis in either kidney. 2. Subsegmental atelectasis in the right lung base. 3. The enlarged left ovary measuring 6.1 x 3.3 cm is redemonstrated. if clinically indicated, MRI with contrast would be helpful for further evaluation. 4. No other significant interval change from prior CT. [facility] ER was called at [phone] at 2:03 AM CHART SNATCHER, 07/01/[address] Reyes was informed regarding the presence of Important Medical Findings in the report. Electronically Signed by: Zi Boateng MD. (07/01/2024 03:05:43 EDT)
[2024-07-01 04:31] VITALS: BP 128/80; PULSE 82; RESP 18; O2SAT 99
== END 2024-07-01 04:31 | disposition home or self-care (01) ==
LOC: ED 21:47
DX: R10.9 Unspecified abdominal pain (principal); N83.8 Other noninflammatory disorders of ovary, fallopian tube and broad ligament; Z79.899 Other long term (current) drug therapy; Z72.0 Tobacco use
CPT/HCPCS: 36000; 36415; 74176; 80053; 81001; 81025; 83690; 85025; 87086; 96374; 96375; 99284; J1170; J2405

== ENCOUNTER 2024-08-04 21:32 | Emergency (ER) | payer BC ==
--- NOTE | 2024-08-04 21:38 | ERPHSYRPT ---
- History of Present Illness Time Seen by Provider: 08/04/24 21:38 Source: patient, family Exam Limitations: no limitations Physician History: This is a morbidly obese 33-year-old white female patient of Dr. Yu who presents by private vehicle escorted by her spouse. At approximately 1700 today, patient stated she was not feeling well generally and laid down. She noticed tingling in her left arm that became achiness and numbness. It felt very heavy. She could move it but it was numb and heavy. Patient denies chest pain. She denies shortness of breath. She has had no visual changes. She then noticed that she was having right sided facial numbness. Patient's then arrived home and they brought this patient to the emergency department. The pat ient systolic blood pressure on arrival was 127 mmHg. Patient has a history of depression, anxiety, asthma, degenerative disc disease, palpitations and seasonal allergies. She is only taking medication for treatment of asthma. Patient symptoms began at 1700 and she was triaged in our emergency department at 2133. Patient was immediately taken to the CT scanner for stat CT scan of the head and I saw her immediately upon her arrival to the emergency department room 7. Timing/Duration: today Severity: mild Character of Deficits: new weakness (Moderate), altered sensation, Right Facial (Numbness) Deficits: no difficulties Baseline/Normal Cognition: alert oriented x 3 Current Cognition: alert oriented x 3 Baseline Gait: walks w/o assistance Associated Symptoms: No slurred speech, No vision changes, No headache Allergies/Adverse Reactions: meloxicam Allergy (Verified 08/04/24 21:47) sulfamethoxazole [From Bactrim] Allergy (Verified 08/04/24 21:47) trimethoprim [From Bactrim] Adverse Reaction (Verified 08/04/24 21:47) Swelling of Face Home Medications: Albuterol Sulfate [Proair Hfa] 2 puff IH DAILY PRN PRN 11/11/15 [History] Hx Tetanus, Diphtheria Vaccination/Date Given: Yes Hx Influenza Vaccination/Date Given: No Hx Pneumococcal Vaccination/Date Given: No Travel Risk - International Travel Have you traveled outside of the country in past 3 weeks: No - Emerging Infectious Disease Are you exhibiting symptoms associated with any current EIDs: Yes Symptoms: Abdominal Pain - Review of Systems Constitutional: No Symptoms Eyes: No Symptoms Ears, Nose, & Throat: No Symptoms Respiratory: No Symptoms Cardiac: No Symptoms Abdominal/Gastrointestinal: No Symptoms Genitourinary Symptoms: No Symptoms Musculoskeletal: No Symptoms Skin: No Symptoms Neurological: Parasthesia (Numbness right face and left upper extremity), No Headache, No Seizure, No Speech Changes Psychological: No Symptoms Endocrine: No Symptoms Hematologic/Lymphatic: No Symptoms Immunological/Allergic: No Symptoms All Other Systems: Reviewed and Negative - Past Medical History Pertinent Past Medical History: Yes Neurological History: No Pertinent History ENT History: No Pertinent History Cardiac History: No Pertinent History Respiratory History: Asthma Endocrine Medical History: No Pertinent History Musculoskeletal History: Degenerative Disk Disease GI Medical History: Gallbladder Disease History: No Pertinent History Psycho-Social History: Depression, Anxiety Female Reproductive Disorders: No Pertinent History Other Medical History: seasonal allergies, palpitations - Past Surgical History Past Surgical History: Yes Neuro Surgical History: No Pertinent History Cardiac: No Pertinent History Respiratory: No Pertinent History Gastrointestinal: Cholecystectomy Genitourinary: No Pertinent History Musculoskeletal: No Pertinent History Female Surgical History: Tubal Ligation, Section Other Surgical History: x3, carpal tunnel bilateral wrist and bilateral elbows Significant Family History: no pertinent family hx - Female History Hx Last Menstrual Period: 06/01/24 Hx Now: No - Social History Smoking Status: Current every day smoker How long have you smoked: 17 yrs Exposure to second hand smoke: Yes Alcohol Use: None Drug Use: none Patient Lives Alone: No - Social Determinants of Health Will the patient participate in the screening: Yes Do you worry about a steady place to live?: No In the past 12 months,have you had to go without utilities?: No Transportation Issues: No Has anyone in your support network made you feel unsafe?: No Have you or anyone in your house had to go without enough: No - Nursing Vital Signs Nursing Vital Signs: Initial Vital Signs Temperature 97.2 F 08/04/24 21:33 Pulse Rate 73 08/04/24 21:33 Respiratory Rate 18 08/04/24 21:33 Blood Pressure 127/79 08/04/24 21:33 O2 Sat by Pulse Oximetry 99 08/04/24 21:33 Pain Scale Pain Intensity 8 - [place] Coma Scale Best Eye Response ([place]): (4) open spontaneously Best Verbal Response ([place]): (5) oriented Best Motor Response ([place]ie): (6) obeys commands [place] Total: 15 - Physical Exam General Appearance: no apparent distress, alert, anxiety, obese Eye Exam: bilateral eye: normal inspection, PERRL, EOMI Ears, Nose, Throat Exam: normal ENT inspection, moist mucous membranes Neck Exam: normal inspection, non-tender, supple, full range of motion Respiratory: normal breath sounds, lungs clear, airway intact, No chest tenderness, No respiratory distress Cardiovascular: regular rate/rhythm, normal heart sounds, normal peripheral pulses Gastrointestinal: soft, normal bowel sounds, No tenderness Pelvic Exam: not done Rectal Exam: not done Back Exam: normal inspection, normal range of motion, No CVA tenderness, No vertebral tenderness Extremity Exam: normal inspection, normal range of motion, pelvis stable, parast hesia (Left upper extremity) Mental Status: alert, oriented x 3, cooperative fueler Exam: normal hearing, normal speech, PERRL, facial paresthesias (Right facial), tongue midline, No facial droop Coordination/Gait: normal finger to nose Motor/Sensory: no motor deficit, no sensory deficit Skin Exam: normal color, warm, dry SpO2 Interpretation: normal O2 Delivery: Room Air - Course Nursing assessment & vital signs reviewed: Yes Ordered Tests: Active Orders 24 hr Category Date Time Status Ball Winder STAT Care 08/04/24 21:41 Active Clean Catch Urine Specimen STAT Care 08/04/24 21:42 Active EKG-ER Only STAT Care 08/04/24 21:41 Active IV Insertion STAT Care 08/04/24 21:41 Active NPO (ED) STAT Care 08/04/24 21:41 Active POCT Glucose Check STAT Care 08/04/24 21:41 Active Pulse Oximetry (ED) STAT Care 08/04/24 21:[address] ANGIOGRAPHY NECK [CT] Stat Exams 08/04/24 22:15 Completed CTA HEAD W AND/OR WO CONTRAST [CT] Stat Exams 08/04/24 22:15 Completed HEAD WITHOUT CONTRAST [CT] Stat Exams 08/04/24 21:33 Taken CBC W DIFF Stat Lab 08/04/24 22:00 Completed CMP Stat Lab 08/04/24 22:00 Completed ETHYL ALCOHOL Stat Lab 08/04/24 22:00 Completed HCG QUALITATIVE, SERUM Stat Lab 08/04/24 22:00 Completed POCT GLUCOSE Stat Lab 08/04/24 22:02 Completed TROPONIN Q4H Lab 08/04/24 Completed UA W/RFX UR CULTURE Stat Lab 08/04/24 22:15 Completed Urine Triage Profile Stat Lab 08/04/24 22:15 Completed Medication Summary Generic Name Dose Route Start Last Admin Trade Name Glo PRN Reason Stop Dose Admin Sodium Chloride 500 mls @ 100 mls/hr 08/04/24 22:15 08/04/24 22:26 Sodium Chloride 0.9% 500 Ml IV 09/03/24 22:14 100 mls/hr .Q5H LIZZIE Administration Discontinued Medications Generic Name Dose Route Start Last Admin Trade Name Glo PRN Reason Stop Dose Admin Aspirin 81 mg 08/04/24 23:17 08/04/24 23:19 Aspirin 81 Mg Tab.Chew PO 08/04/24 23:18 81 mg STAT ONE Administration Aspirin Confirm 08/04/24 23:18 Aspirin 81 Mg Tab.Chew Administered 08/04/24 23:19 Dose 81 mg .ROUTE .STK-MED ONE Sodium Chloride Confirm 08/04/24 22:25 Sodium Chloride 0.9% 1000 Ml Administered 08/04/24 22:26 Dose 1,000 mls @ ud .ROUTE .STK-MED ONE Lab/Rad Data: Laboratory Result Diagrams 08/04/24 22:00 08/04/24 22:00 Laboratory Results 08/04/24 08/04/24 08/04/24 Range/Units Unknown 22:15 22:15 WBC (3.98-10.04) x10^3/uL RBC (3.93-5.22) x10^6/uL Hgb (11.2-15.7) g/dL Hct (34.1-44.9) % MCV (79.4-94.8) fL MCH (25.6-32.2) pg MCHC (32.2-35.5) g/dL RDW (11.7-14.4) % Plt Count (182-369) x10^3/uL MPV (9.4-12.3) fL Gran % (34.0-71.1) % Immature Gran % (Auto) (0.001-0.429) % Nucleat RBC Rel Count (0.00-0.2) % Eos # (Auto) (0.04-0.36) x10^3/uL Immature Gran # (Auto) (0.001-0.031) x10^3u/L Absolute Lymphs (auto) (1.18-3.74) x10^3/uL Absolute Monos (auto) (0.24-0.86) x10^3/uL Absolute Nucleated RBC (0.00-0.012) x10^3u/L Lymphocytes % (19.3-51.7) % Monocytes % (4.7-12.5) % Eosinophils % (0.7-5.8) % Basophils % (0.1-1.2) % Absolute Granulocytes (1.56-6.13) x10^3/uL Basophils # (0.01-0.08) x10^3/uL Sodium (135-145) mmol/L Potassium (3.5-5.1) mmol/L Chloride (98-107) mmol/L Carbon Dioxide (22-30) mmol/L Anion Gap (5-15) MEQ/L BUN (7-17) mg/dL Creatinine (0.52-1.04) mg/dL Estimated GFR ML/MIN Glucose (74-106) mg/dL POC Glucometer (74 to 106) mg/dL Calcium (8.4-10.2) mg/dL Total Bilirubin (0.2-1.3) mg/dL AST (14-36) U/L ALT (0-35) U/L Alkaline Phosphatase (38-126) U/L Troponin I < 0.012 (0.000-0.033) ng/mL Serum Total Protein (6.3-8.2) g/dL Albumin (3.5-5.0) g/dL Serum HCG, Qual (NEGATIVE) Urine Color Yellow (Yellow) Urine Appearance Clear (Clear) Urine pH 6.0 (4.6-8.0) Ur Specific [place] <=1.005 (1.005-1.030) Urine Protein Negative (Negative) Urine Glucose (UA) Negative (Negative) mg/dL Urine Ketones Negative (Negative) Urine Blood Moderate A (Negative) Urine Nitrite Negative (Negative) Urine Bilirubin Negative (Negative) Urine Urobilinogen 0.2 (0.2) mg/dL Ur Leukocyte Esterase Negative (Negative) U Hyaline Cast (Auto) NONE SEEN (0-2) /LPF Urine Microscopic RBC 3-5 (0-5) /HPF Urine Microscopic WBC 0-2 (0-5) /HPF Ur Epithelial Cells Few (None Seen) /HPF Urine Bacteria Rare A (None Seen) /HPF Urine Culture Reflexed NO (NO) Urine Opiates Level NEGATIVE (NEGATIVE) Ur Methadone NEGATIVE (NEGATIVE) Urine Barbiturates NEGATIVE (NEGATIVE) Ur Phencyclidine (PCP) NEGATIVE (NEGATIVE) Urine Amphetamine NEGATIVE (NEGATIVE) U Benzodiazepine Level NEGATIVE (NEGATIVE) Urine Cocaine NEGATIVE (NEGATIVE) Urine Marijuana (THC) NEGATIVE (NEGATIVE) Ethyl Alcohol (0-10) mg/dL 08/04/24 08/04/24 08/04/24 Range/Units 22:02 22:00 22:00 WBC (3.98-10.04) x10^3/uL RBC (3.93-5.22) x10^6/uL Hgb (11.2-15.7) g/dL Hct (34.1-44.9) % MCV (79.4-94.8) fL MCH (25.6-32.2) pg MCHC (32.2-35.5) g/dL RDW (11.7-14.4) % Plt Count (182-369) x10^3/uL MPV (9.4-12.3) fL Gran % (34.0-71.1) % Immature Gran % (Auto) (0.001-0.429) % Nucleat RBC Rel Count (0.00-0.2) % Eos # (Auto) (0.04-0.36) x10^3/uL Immature Gran # (Auto) (0.001-0.031) x10^3u/L Absolute Lymphs (auto) (1.18-3.74) x10^3/uL Absolute Monos (auto) (0.24-0.86) x10^3/uL Absolute Nucleated RBC (0.00-0.012) x10^3u/L Lymphocytes % (19.3-51.7) % Monocytes % (4.7-12.5) % Eosinophils % (0.7-5.8) % Basophils % (0.1-1.2) % Absolute Granulocytes (1.56-6.13) x10^3/uL Basophils # (0.01-0.08) x10^3/uL Sodium 139 (135-145) mmol/L Potassium 3.4 L (3.5-5.1) mmol/L Chloride 107 (98-107) mmol/L Carbon Dioxide 24 (22-30) mmol/L Anion Gap 11.0 (5-15) MEQ/L BUN 7 (7-17) mg/dL Creatinine 0.79 (0.52-1.04) mg/dL Estimated GFR 101.2 ML/MIN Glucose 93 (74-106) mg/dL POC Glucometer 87 (74 to 106) mg/dL Calcium 9.1 (8.4-10.2) mg/dL Total Bilirubin 0.50 (0.2-1.3) mg/dL AST 28 (14-36) U/L ALT 26 (0-35) U/L Alkaline Phosphatase 74 (38-126) U/L Troponin I (0.000-0.033) ng/mL Serum Total Protein 7.5 (6.3-8.2) g/dL Albumin 4.1 (3.5-5.0) g/dL Serum HCG, Qual NEGATIVE (NEGATIVE) Urine Color (Yellow) Urine Appearance (Clear) Urine pH (4.6-8.0) Ur Specific [place] (1.005-1.030) Urine Protein (Negative) Urine Glucose (UA) (Negative) mg/dL Urine Ketones (Negative) Urine Blood (Negative) Urine Nitrite (Negative) Urine Bilirubin (Negative) Urine Urobilinogen (0.2) mg/dL Ur Leukocyte Esterase (Negative) U Hyaline Cast (Auto) (0-2) /LPF Urine Microscopic RBC (0-5) /HPF Urine Microscopic WBC (0-5) /HPF Ur Epithelial Cells (None Seen) /HPF Urine Bacteria (None Seen) /HPF Urine Culture Reflexed (NO) Urine Opiates Level (NEGATIVE) Ur Methadone (NEGATIVE) Urine Barbiturates (NEGATIVE) Ur Phencyclidine (PCP) (NEGATIVE) Urine Amphetamine (NEGATIVE) U Benzodiazepine Level (NEGATIVE) Urine Cocaine (NEGATIVE) Urine Marijuana (THC) (NEGATIVE) Ethyl Alcohol < 10 (0-10) mg/dL 08/04/24 Range/Units 22:00 WBC 6.2 (3.98-10.04) x10^3/uL RBC 3.98 (3.93-5.22) x10^6/uL Hgb 12.7 (11.2-15.7) g/dL Hct 36.3 (34.1-44.9) % MCV 91.2 (79.4-94.8) fL MCH 31.9 (25.6-32.2) pg MCHC 35.0 (32.2-35.5) g/dL RDW 11.9 (11.7-14.4) % Plt Count 288 (182-369) x10^3/uL MPV 10.7 (9.4-12.3) fL Gran % 50.8 (34.0-71.1) % Immature Gran % (Auto) 0.2 (0.001-0.429) % Nucleat RBC Rel Count 0.0 (0.00-0.2) % Eos # (Auto) 0.35 (0.04-0.36) x10^3/uL Immature Gran # (Auto) 0.01 (0.001-0.031) x10^3u/L Absolute Lymphs (auto) 2.27 (1.18-3.74) x10^3/uL Absolute Monos (auto) 0.37 (0.24-0.86) x10^3/uL Absolute Nucleated RBC 0.00 (0.00-0.012) x10^3u/L Lymphocytes % 36.7 (19.3-51.7) % Monocytes % 6.0 (4.7-12.5) % Eosinophils % 5.7 (0.7-5.8) % Basophils % 0.6 (0.1-1.2) % Absolute Granulocytes 3.15 (1.56-6.13) x10^3/uL Basophils # 0.04 (0.01-0.08) x10^3/uL Sodium (135-145) mmol/L Potassium (3.5-5.1) mmol/L Chloride (98-107) mmol/L Carbon Dioxide (22-30) mmol/L Anion Gap (5-15) MEQ/L BUN (7-17) mg/dL Creatinine (0.52-1.04) mg/dL Estimated GFR ML/MIN Glucose (74-106) mg/dL POC Glucometer (74 to 106) mg/dL Calcium (8.4-10.2) mg/dL Total Bilirubin (0.2-1.3) mg/dL AST (14-36) U/L ALT (0-35) U/L Alkaline Phosphatase (38-126) U/L Troponin I (0.000-0.033) ng/mL Serum Total Protein (6.3-8.2) g/dL Albumin (3.5-5.0) g/dL Serum HCG, Qual (NEGATIVE) Urine Color (Yellow) Urine Appearance (Clear) Urine pH (4.6-8.0) Ur Specific [place] (1.005-1.030) Urine Protein (Negative) Urine Glucose (UA) (Negative) mg/dL Urine Ketones (Negative) Urine Blood (Negative) Urine Nitrite (Negative) Urine Bilirubin (Negative) Urine Urobilinogen (0.2) mg/dL Ur Leukocyte Esterase (Negative) U Hyaline Cast (Auto) (0-2) /LPF Urine Microscopic RBC (0-5) /HPF Urine Microscopic WBC (0-5) /HPF Ur Epithelial Cells (None Seen) /HPF Urine Bacteria (None Seen) /HPF Urine Culture Reflexed (NO) Urine Opiates Level (NEGATIVE) Ur Methadone (NEGATIVE) Urine Barbiturates (NEGATIVE) Ur Phencyclidine (PCP) (NEGATIVE) Urine Amphetamine (NEGATIVE) U Benzodiazepine Level (NEGATIVE) Urine Cocaine (NEGATIVE) Urine Marijuana (THC) (NEGATIVE) Ethyl Alcohol (0-10) mg/dL - Progress Progress: improved, re-examined Progress Note: 08/04/24 22:28 My medical decision making and the assignment of moderate to high complexity of this patient's medical issue today is based on review of the patient's past medical history, review the patient medication list, reviewed patient drug allergy list, history presence and physical findings on examination. The workup in this patient includes intravenous line placement, infusion of low rate normal saline solution, urinalysis, stat CT scan of the head without contrast, CBC, CMP, twelve-lead EKG, troponin level, urine drug screen, ethyl alcohol level. Patient will need a teleneurology consultation and therefore I ordered a CT angio of the neck and CTA of the chest once the CT scan of the head without contrast that was read by radiologist that shows no acute findings. Differential diagnosis includes was not limited to intracranial bleed, intracranial acute infarction, TIA, urinary tract infection, dehydration, electrolyte abnormalities, myocardial infarction 10/01/24 00:00 I interpreted the patient's laboratory data results. Based on the laboratory data results, there are no acute, emergent findings. I spoke with Dr. Denson(sp?) the teleneurologist on-call. He stated that he had low suspicion that there is an acute infarction present. However he wanted the patient to receive a baby aspirin now and be placed in observation to have an MRI/MRA of the brain tomorrow for stroke workup and to evaluate for possible evidence of demyelinization. He stated that there is no need for the patient to receive Plavix. The CT angiogram of the neck was interpreted by the radiologist. I reviewed the impression. There is no evidence of significant vascular abnormalities on this study. Head CT angiography shows no evidence of significant vascular abnormality, acute infarct or hemorrhage. I spoke with , our telehospitalist on-call tonight. I reviewed the patient history, physical findings on examination, workup results and the discussion I had with the teleneurologist. He agrees to place this patient in observation for stroke rule out/workup. Counseled pt/family regarding: lab results, diagnosis, rad results Medical Desision Making - Independent Historian Additional History obtained from: Spouse - Discussion of managment Care discussed with:: specialist (Teleneurologist Dr. Denson and telehospitalist Dr. Villalobos) Agreed on:: Treatment plan, place in obs Will see patient: in hospital - Diagnostic Testing Diagnostic test were ordered, analyzed, and reviewed by me: Yes Radiological Interpretation: Reviewed by me, Teleradiologist Report - Risk of complications The pt has a high risk of morbidity or mortality based on: Decision regarding hospitilization or escalation of hosp level of care - Departure Departure Disposition: Observation Clinical Impression: Right facial numbness, Left upper extremity numbness Condition: Stable Critical Care Time: No Referrals: AUDELIA YU [Primary Care Provider] - Follow up/PCP as directed
[2024-08-04 22:05] LABS: Absolute Neutrophil Ct (ANC) 3.15 x10^3/uL (1.56-6.13); BASOPHIL % 0.6 % (0.1-1.2); Basophil (Absolute #) 0.04 x10^3/uL (0.01-0.08); Eosinophil % 5.7 % (0.7-5.8); Eosinophil (Absolute #) 0.35 x10^3/uL (0.04-0.36); Hematocrit 36.3 % (34.1-44.9); Hemoglobin 12.7 g/dL (11.2-15.7); IMMATURE GRAN # 0.01 x10^3u/L (0.001-0.031); IMMATURE GRAN % 0.2 % (0.001-0.429); Lymphocyte (Absolute #) 2.27 x10^3/uL (1.18-3.74); Lymphocytes % 36.7 % (19.3-51.7); Mean Cell Volume 91.2 fL (79.4-94.8); Mean Corpuscular Hemoglobin 31.9 pg (25.6-32.2); Mean Platelet Volume 10.7 fL (9.4-12.3); Monocyte (Absolute #) 0.37 x10^3/uL (0.24-0.86); Neutrophil % 50.8 % (34.0-71.1); Platelet Count 288 x10^3/uL (182-369); Red Blood Count 3.98 x10^6/uL (3.93-5.22); Red Cell Distribution Width 11.9 % (11.7-14.4); White Blood Count 6.2 x10^3/uL (3.98-10.04)
[2024-08-04 22:13] VITALS: TEMP 97.2; O2SAT 99
[2024-08-04 22:21] LABS: ALBUMIN 4.1 g/dL (3.5-5.0); ALKALINE PHOSPHATASE 74 U/L (38-126); BLOOD UREA NITROGEN 7 mg/dL (7-17); CHLORIDE 107 mmol/L (98-107); Calcium 9.1 mg/dL (8.4-10.2); Carbon Dioxide 24 mmol/L (22-30); Creatinine 1 0.79 mg/dL (0.52-1.04); EST GLOMERULAR FILTRATION RATE 101.2 ML/MIN; ETHYL ALCOHOL < 10 mg/dL (0-10); Glucose 93 mg/dL (74-106); HCG SERUM TEST NEGATIVE (NEGATIVE); Potassium 3.4 mmol/L (3.5-5.1); SGOT/AST 28 U/L (14-36); SGPT/ALT 26 U/L (0-35); SODIUM 139 mmol/L (135-145); Total Protein 7.5 g/dL (6.3-8.2)
[2024-08-04] MEDS ORDERED: Sodium Chloride 0.9% 1000 ML 0 ML ONE (22:25)
[2024-08-04] MEDS: Sodium Chloride 0.9% 500 ML 500 ML IV SCH (22:26)
[2024-08-04] MEDS ORDERED: Sodium Chloride 0.9% 500 ML 500 ML IV ONE (22:26)
[2024-08-04 22:36] LABS: Amphetamine,Urine NEGATIVE (NEGATIVE); Barbiturate,Urine NEGATIVE (NEGATIVE); Benzodiazepine,Urine NEGATIVE (NEGATIVE); Cocaine,Urine NEGATIVE (NEGATIVE); Methadone,Urine NEGATIVE (NEGATIVE); Opiate,Urine NEGATIVE (NEGATIVE); PCP,Urine NEGATIVE (NEGATIVE); THC,Urine NEGATIVE (NEGATIVE)
[2024-08-04 22:45] LABS: Appearance Clear (Clear); Bacteria Rare /HPF (None Seen); Bilirubin Negative (Negative); Blood Moderate (Negative); Epithelial Cells Few /HPF (None Seen); Glucose, Urine Negative (Negative); Hyaline Casts NONE SEEN /LPF (0-2); Ketones Negative (Negative); Leukocyte Esterase Negative (Negative); Nitrite Negative (Negative); Protein,Urine Dip Negative (Negative); Specific Gravity <=1.005 (1.005-1.030); Urobilinogen 0.2 mg/dL (0.2); WBC 0-2 /HPF (0-5)
[2024-08-04] MEDS ORDERED: BABY ASPIRIN 81 MG CHEW ONE (23:18)
[2024-08-04] MEDS: BABY ASPIRIN 81 MG CHEW PO ONE (23:19)
--- NOTE | 2024-08-04 23:52 | XRAY ---
CLINICAL HISTORY: Strokelike symptoms COMPARISON: 08/04/2024. TECHNIQUE: CT angiography of the head was performed following the intravenous administration of [specify contrast agent and amount] of iodinated contrast material. Contiguous axial images were obtained from the base of the skull to the vertex. Coronal and sagittal reformatted images were also reviewed. One of these 3D techniques was utilized: Maximum Intensity Pixel (MIP), 3D Reconstructed Images, Volume Rendered Images, Surface Shaded Rendering. One of the following dose reduction techniques was utilized for this exam. Automated exposure control, adjustment of the mA and/or kV according to patient size, and use of iterative reconstruction. FINDINGS: Intracranial Arteries: The intracranial arteries, including the anterior cerebral arteries, middle cerebral arteries, posterior cerebral arteries, basilar artery, and vertebral arteries, are all patent without evidence of significant stenosis, aneurysm, or dissection. There is no evidence of vascular malformations. [place]: The [place] is intact with no anatomical variations or abnormalities noted. All segments are well-visualized and normal in appearance. Venous System: The visualized portions of the venous system, including the dural venous sinuses, are patent with no evidence of thrombosis. Brain Parenchyma: The brain parenchyma shows no evidence of acute infarct, hemorrhage, or mass effect. The ventricles and sulci are normal in size and configuration. Bones: The bony structures of the skull are intact without evidence of fracture or destructive lesions. Soft Tissues: The visualized soft tissues of the head are unremarkable. Additional Findings: No other significant findings are noted. IMPRESSION: Normal CT angiography of the head. No evidence of significant vascular abnormalities, acute infarct, or hemorrhage. No interval changes. Electronically Signed by: Zi Boateng MD. (08/04/2024 23:48:43 EDT)
--- NOTE | 2024-08-04 23:54 | XRAY ---
CLINICAL HISTORY: Strokelike symptoms COMPARISON: No previous studies are available for comparison. TECHNIQUE: CT angiography of the neck was performed following the intravenous administration of [specify contrast agent and amount] of iodinated contrast material. Axial images were obtained from the aortic arch to the vertex. Coronal and sagittal reformatted images were also reviewed. One of the following dose reduction techniques was utilized for this exam. Automated exposure control, adjustment of the mA and/or kV according to patient size, and use of iterative reconstruction. One of these 3D techniques was utilized: Maximum Intensity Pixel (MIP), 3D Reconstructed Images, Volume Rendered Images, Surface Shaded Rendering. FINDINGS: Carotid Arteries: The common, internal, and external carotid arteries are patent bilaterally with no evidence of significant stenosis, aneurysm, or dissection. There is no evidence of atherosclerotic plaque causing significant luminal narrowing. Vertebral Arteries: The vertebral arteries are patent bilaterally with no evidence of significant stenosis, aneurysm, or dissection. Thyroid Gland: The thyroid gland is normal in size and appearance with no focal lesions. Lymph Nodes: There is no evidence of significant lymphadenopathy in the neck. Soft Tissues: The soft tissues of the neck are unremarkable with no evidence of masses or abnormal collections. Additional Findings: No other significant findings are noted. IMPRESSION: Normal CT angiography of the neck. No evidence of significant vascular abnormalities Electronically Signed by: Zi Boateng MD. (08/04/2024 23:50:06 EDT)
[2024-08-05 00:34] VITALS: BP 118/94; PULSE 67; RESP 17
--- NOTE | 2024-08-05 08:34 | XRAY ---
Indication: Facial droop. Weakness. Multiple contiguous axial images obtained through the head without contrast. Comparison: March 13, 2018 Normal appearing brain parenchyma, ventricles, and bony calvarium. Visualized paranasal sinuses and mastoid air cells are clear. Impression: Continued normal CT head without contrast exam.
== END 2024-08-05 00:30 | disposition left against medical advice (07) ==
LOC: ED 21:32
DX: R20.0 Anesthesia of skin (principal); Z79.899 Other long term (current) drug therapy; Z72.0 Tobacco use
CPT/HCPCS: 36000; 36415; 70450; 70496; 70498; 80053; 80307; 81001; 82077; 82947; 84484; 84703; 85025; 93005; 93041; 94760; 99284; A9270-GY